=== PATIENT | female | born 1960 | race Caucasian/White ===

== ENCOUNTER → 2017-05-03 | Day surgery (SDC) | payer BC ==
[2017-04-26 13:00] VITALS: BMI 45.0
[2017-04-26 14:24] LABS: BASO % 0.2 %; BASO ABS # 0.02 K/uL (0-0.2); COMPLETE YES; EOS % 1.3 %; HEMATOCRIT 41.5 % (37-47); IG% 0.1 %; LYMPH ABS # 1.83 K/uL (1.2-3.4); MEAN CELL VOLUME 89.1 fL (80-100); MEAN CORPUSCULAR HEMOGLOBIN 27.7 pg (25-34); MEAN CORPUSCULAR HGB CONC 31.1 g/dl (32-36); MEAN PLATELET VOLUME 9.3 fL (7.4-10.4); MONO % 6.5 %; NEUT % 70.9 %; PLATELET COUNT 324 K/uL (130-400); RED BLOOD COUNT 4.66 M/uL (4.2-5.4); WHITE BLOOD COUNT 8.72 K/uL (4.8-10.8)
[2017-04-26 14:35] LABS: BUN/CREATININE RATIO 15.4 (10-20); CALCIUM 9.3 mg/dl (8.5-10.1); CREATININE 0.78 mg/dl (0.60-1.20); POTASSIUM 3.6 mmol/L (3.5-5.1)
[~2017-05-03] VITALS: Ht 149.9 cm; Wt 100.6 kg
[~2017-05-03] MED LIST: ATROPINE SULFATE 0.1 MG/ML 5ML SYR IV PRN; DEXAMETHASONE SOD INJ 4 MG/ML VIAL ONE; EpHEDrine SULFATE INJ 50 MG/ML AMP IV PRN; FENTANYL CITRATE INJ 50 MCG/1 ML 2 ML VIAL IV PRN; FENTANYL CITRATE INJ 50 MCG/1 ML 2 ML VIAL ONE; GLYCOPYRROLATE INJ 0.2 MG/ML VIAL ONE; IBUP600T44 PO; IBUPROFEN 600 MG TAB PO PRN; KETOROLAC TROMETHAMINE 30 MG/ML VIAL IV. PRN; LACTATED RINGER'S 1000ML 1,000 ML IV SCH; LIDOCAINE HCL 2% 2 ML VIAL (20MG/ML) ONE; MIDAZOLAM HCL 1 MG/ML 2ML VIAL ONE; NEOSTIGMINE METHYLSULFATE 5 MG/5 ML SYR ONE; ONDANSETRON INJ 2 MG/ML 2 ML VIAL IV PRN; ONDANSETRON INJ 2 MG/ML 2 ML VIAL ONE; OXYCODONE/ACETAMINOPHEN 5-325 TAB PO PRN; PROPOFOL IV EMULSION 10 MG/ML 20 ML VIAL IV ONE; ROCURONIUM BROMIDE 10 MG/ML 5 ML VIAL ONE; SODIUM CHLORIDE 0.9% 1000ML 1,000 ML IV SCH
[2017-05-03 05:42] VITALS: BP 141/74; PULSE 88; TEMP 36.9; O2SAT 95; Ht 149.9 cm; Wt 100.6 kg
[2017-05-03 06:28] LABS: BASO % 0.3 %; BASO ABS # 0.02 K/uL (0-0.2); HEMATOCRIT 41.2 % (37-47); IG% 0.3 %; LYMPH % 20.2 %; LYMPH ABS # 1.55 K/uL (1.2-3.4); MEAN PLATELET VOLUME 9.1 fL (7.4-10.4); MONO % 8.4 %; NEUT % 67.8 %; PLATELET COUNT 279 K/uL (130-400); RED BLOOD COUNT 4.68 M/uL (4.2-5.4); WHITE BLOOD COUNT 7.66 K/uL (4.8-10.8)
[2017-05-03 06:30] LABS: COMPLETE YES; MEAN CORPUSCULAR HGB CONC 31.8 g/dl (32-36)
--- NOTE | 2017-05-03 06:39 | History & Physical Bridge Note ---
H&P Re-Evaluation Bridge Note: I have examined the patient, reviewed the History & Physical and in the interval since the performance of the History & Physical I have noted the following changes of clinical significance: No changes noted
--- NOTE | 2017-05-03 07:51 | Discharge Instructions ---
Discharge Instructions Date of Service May 03, 2017. Visit Reason for Visit: Post-Menopausal Bleeding Discharge Discharge Diagnosis / Problem: Postmenopausal bleeding, Endometrial Polyp, S/P D&C Discharge Goals Goal(s): Decrease discomfort Activity Recommendations Activity Limitations: per Instructions/Follow-up section Anesthesia . Post Anesthesia Instructions: If you have had General Anesthesia or IV Sedation: * Do not drive today. * Resume driving when surgeon permits. * Do not make important decisions or sign legal documents today. * Call surgeon for: 1. Temperature elevations greater than 101 degrees F. 2. Uncontrollable pain. 3. Excessive bleeding. 4. Persistent nausea and vomiting. 5. Medication intolerance (nausea, vomiting or rash). * For nausea and vomiting use only clear liquids such as: tea, soda, bouillon until nausea subsides, then gradually increase diet as tolerated. * If you have any concerns or questions, call your surgeon's office. If physician is unavailable and it is an emergency, call 911 or go to the nearest emergency room. . Instructions / Follow-Up Instructions / Follow-Up ACTIVITY RECOMMENDATIONS: * Avoid tampons, douching, hot tubs, pools, and intercourse until bleeding has stopped. * May shower as usual. * No strenuous activity for 24-48 hours. After 24-48 hours, you may do anything you feel like doing (driving and sports are okay). SPECIAL CARE INSTRUCTIONS: Special Diet: * Mild nausea may occur in the immediate post-operative period. * Take clear liquids such as tea, cola or bouillon until all nausea has subsided; you may then resume your normal diet. Special Care: * Light bleeding and vaginal spotting can last from a few days to 3-4 weeks. Call your doctor if bleeding becomes heavier than the heaviest part of your period. * Check your temperature twice a day for one week. If it goes above 100.4 degrees Fahrenheit (38.0 Celsius), notify your doctor. * Call your doctor's office for an appointment for 1-2 weeks after your surgery. FOLLOW-UP VISIT: Call your doctor's office for an appointment for 1-2 weeks after your surgery. Diet Recommendations Recommended Home Diet: no limitations, resume previous diet Procedures Procedures Performed: Hysteroscopy Dilation Currettage, Myosure polypectomy Pending Studies Studies pending at discharge: no Medical Emergencies . Who to Call and When: Medical Emergencies: If at any time you feel your situation is an emergency, please call 911 immediately. . Non-Emergent Contact Non-Emergency issues call your: Primary Care Provider, [facility] . . "Provider Documentation" section prepared by Masoud Lilly. .
--- NOTE | 2017-05-03 07:56 | [facility] Post Operative Brief Note ---
Immediate Operative Summary Operative Date May 03, 2017. Pre-Operative Diagnosis Post Menopausal Bleeding Post-Operative Diagnosis Same as preop, Endometrial Polyp Procedure(s) Performed Hysteroscopy, Dilation and Currettage, Myosure polypectomy Surgeon Dr. Lilly Gravel Weigher Surgeon(s) None Estimated Blood Loss 5 ml Findings On bimanual exam uterus was at midline and freely mobile, bilateral adnexa clear to palpation. On speculum exam there was a large endometrial polyp extending from within the endometrial cavity extending out of the cervical os. The polyp was grasped with a ring forceps and removed in one large 4 cm piece. The hysteroscope was introduced into the endometrial cavity. Bilateral tubal ostia were clearly visualized the polyp stump was located at the right cornua. Utilizing the myosure the polyp stump was successfully removed. No other polyps or submucosal fibroids noted. The entire endometrial cavity was then curetted obtaining a minimal amount of endometrial tissue. Both the polyp and endometrial curettings were sent to pathology. Patient tolerated the surgery well and was sent to recovery with stable vital signs. Fluids (cc crystalloids) 800 Specimens A. Endometrial Currettings B. Endometrial Polyp Drains None Anesthesia General Complication(s) None Disposition Recovery Room / PACU
--- NOTE | 2017-05-03 08:24 | Anesthesiology Progress Note ---
Anesthesia Post Op Note Date & Time May 03, 2017 at 08:24 Vital Signs Pain Intensity: 2 Vital Signs Past 12 Hours Date Time Temp Pulse Resp B/P (MAP) Pulse Ox O2 Delivery O2 Flow Rate FiO2 05/03/17 08:09 87 15 05/03/17 08:09 85 15 100 05/03/17 08:06 150/95 05/03/17 08:04 88 17 100 05/03/17 08:04 89 17 05/03/17 08:01 131/109 05/03/17 07:59 89 17 05/03/17 07:59 90 17 100 05/03/17 07:56 117/99 05/03/17 07:54 91 20 05/03/17 07:54 92 20 99 05/03/17 07:54 36.6 94 14 117/99 (104) 100 Mask 10 05/03/17 05:42 36.9 88 16 141/74 (96) 95 Room Air Notes Mental Status: alert / awake / arousable, participated in evaluation Pt Amnestic to Procedure: Yes Nausea / Vomiting: adequately controlled Pain: adequately controlled Airway Patency, RR, SpO2: stable & adequate BP & HR: stable & adequate Hydration State: stable & adequate Anesthetic Complications: no major complications apparent
[2017-05-03 08:40] VITALS: BP 142/93; PULSE 93; TEMP 37; O2SAT 97
[2017-05-03 09:10] VITALS: BP 177/84; PULSE 96; O2SAT 97
--- NOTE | 2017-05-03 09:13 | OPERATIVE REPORT ---
DATE OF OPERATION: 05/03/2017 PREOPERATIVE DIAGNOSIS: Postmenopausal bleeding. POSTOPERATIVE DIAGNOSES: 1. Postmenopausal bleeding. 2. Endometrial polyp. OPERATIVE PROCEDURE: Hysteroscopy, dilation and curettage and MyoSure polypectomy. SURGEON: Dr. Masoud Lilly. PROCUREMENT CLERK: None. ANESTHESIA: General. ESTIMATED BLOOD LOSS: 5 mL. IV FLUIDS: 800 mL crystalloids. URINE OUTPUT: 150 mL clear yellow urine. SPECIMENS: Endometrial polyp and curettings to pathology. DRAINS: None. COMPLICATIONS: None. DISPOSITION: Recovery room. OPERATIVE FINDINGS: On bimanual exam, uterus was at midline and freely mobile. Bilateral adnexa were clear to palpation. On speculum exam, there was a large endometrial polyp extending from within the endometrial cavity, extending out of the cervical os. The polyp was grasped with a ring forceps and removed in 1 large 4-cm piece. The hysteroscope was then introduced into the endometrial cavity. Bilateral tubal ostia were clearly visualized. The polyp stump was located at the right cornua at the fundus. Utilizing my LigaSure, the polyp stump was successfully removed. No other endometrial polyps or submucosal fibroids noted. The entire endometrial cavity was then curetted obtaining a minimal amount of endometrial tissue. Both polyp endometrial curettings were sent to pathology. The patient tolerated the surgery well and was re sent to recovery with stable vital signs. OPERATIVE PROCEDURE: The patient was taken to the operating room, where general anesthesia was administered. Once anesthesia was found to be adequate, the patient was placed in dorsal lithotomy position and was prepped and draped in a manner appropriate for the procedure. The bladder was then drained of clear yellow urine. Bimanual exam was then performed with the above noted findings. A weighted speculum was then placed into the vagina and the anterior lip of the cervix was grasped with a single tooth tenaculum. It was noted that there was a polyp extruding from the cervical os, which was grasped with the ring forceps and removed in 1 large 4-cm piece. The hysteroscope was then introduced into the endometrial cavity and a thorough examination was then performed with the above noted findings. The MyoSure was then introduced into the endometrial cavity as well and the polyp stump was removed with MyoSure. No other endometrial polyp or submucosal fibroids were noted. The hysteroscope was then removed. The uterine cavity measured 7 cm. Utilizing a medium Mccarthy curette, a thorough curettage of the endometrial cavity was then performed, obtaining a minimal amount of endometrial tissue, which was sent to pathology. At this point, the procedure was found to be complete. All instruments were then removed from the vagina. All sponge and instrument counts were found to be correct x2. The patient tolerated the procedure well and was sent to recovery with stable vital signs. I attest to the content of the Intraoperative Record and any orders documented therein. Any exception s are noted below.
== END | disposition home or self-care (01) ==
LOC: C.ACU 05:19
PROVIDERS: ATTEND Obstetrics & Gynecology
DX: N84.0 Polyp of corpus uteri (principal)

== ENCOUNTER → 2017-09-12 | Outpatient (CLI) | payer BC ==
[~2017-09-12] MED LIST changes: -ATROPINE SULFATE 0.1 MG/ML 5ML SYR IV PRN; -DEXAMETHASONE SOD INJ 4 MG/ML VIAL ONE; -EpHEDrine SULFATE INJ 50 MG/ML AMP IV PRN; -FENTANYL CITRATE INJ 50 MCG/1 ML 2 ML VIAL IV PRN; -FENTANYL CITRATE INJ 50 MCG/1 ML 2 ML VIAL ONE; -GLYCOPYRROLATE INJ 0.2 MG/ML VIAL ONE; -IBUPROFEN 600 MG TAB PO PRN; -KETOROLAC TROMETHAMINE 30 MG/ML VIAL IV. PRN; -LACTATED RINGER'S 1000ML 1,000 ML IV SCH; -LIDOCAINE HCL 2% 2 ML VIAL (20MG/ML) ONE; -MIDAZOLAM HCL 1 MG/ML 2ML VIAL ONE; +NAPR250T3 PO; -NEOSTIGMINE METHYLSULFATE 5 MG/5 ML SYR ONE; -ONDANSETRON INJ 2 MG/ML 2 ML VIAL IV PRN; -ONDANSETRON INJ 2 MG/ML 2 ML VIAL ONE; -OXYCODONE/ACETAMINOPHEN 5-325 TAB PO PRN; -PROPOFOL IV EMULSION 10 MG/ML 20 ML VIAL IV ONE; +PRT40 PO; -ROCURONIUM BROMIDE 10 MG/ML 5 ML VIAL ONE; -SODIUM CHLORIDE 0.9% 1000ML 1,000 ML IV SCH
[2017-09-12 16:59] LABS: BASO % 0.3 %; BASO ABS # 0.03 K/uL (0-0.2); EOS % 0.9 %; HEMATOCRIT 22.9 % (37-47); IG% 0.2 %; LYMPH % 16.7 %; LYMPH ABS # 1.68 K/uL (1.2-3.4); MEAN CELL VOLUME 89.5 fL (80-100); MEAN CORPUSCULAR HEMOGLOBIN 28.1 pg (25-34); MEAN CORPUSCULAR HGB CONC 31.4 g/dl (32-36); MEAN PLATELET VOLUME 8.7 fL (7.4-10.4); NEUT % 76.9 %; PLATELET COUNT 407 K/uL (130-400); RED BLOOD COUNT 2.56 M/uL (4.2-5.4); WHITE BLOOD COUNT 10.09 K/uL (4.8-10.8)
[2017-09-12 17:24] LABS: COMPLETE YES; POLYCHROMASIA 1+
== END | disposition home or self-care (01) ==
LOC: C.LAB1850 16:22
PROVIDERS: ATTEND Physician Assistant
DX: R53.1 Weakness (principal)

== ENCOUNTER 2017-09-13 10:51 | Inpatient (IN) | payer BC, OTHER ==
[2017-09-13] VITALS (12 sets, daily range): BP systolic 107–146; BP diastolic 51–96; PULSE 69–111; TEMP 36.4–37.2; O2SAT 91–99; Ht 149.9 cm; Wt 99.1 kg
[~2017-09-13] VITALS: Ht 149.9 cm; Wt 99.1 kg
[~2017-09-13 10:51] MED LIST changes: -NAPR250T3 PO; -PRT40 PO
[2017-09-13] MEDS ORDERED: PANTOprazole INJ 40 MG in SYRINGE 0 ML IV ONE ×2 (11:30→13:30)
--- NOTE | 2017-09-13 11:51 | EMERGENCY ROOM VISIT NOTE ---
History Report prepared by Aby: Soumya Crenshaw Under the Supervision of: Dr. Aysha Wheeler D.O. 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 She notes blood in her stools (black in color) began five days ago and she has nausea, loss of appetite, general weakness, and fatigue. She notes that she has never had blood in her stools before. She also notes that her stools have been looser than normal, though denies diarrhea. She notes that she has recently had two courses of prednisone and antibiotic treatments for asthma exacerbation and a "cold." She normally has bronchospasms when she is sick, so her PCP prescribed her steroids. She notes that the cold symptoms have dissipated, though she still has a productive cough with white sputum. She reports feeling very sick while on the last antibiotic treatment, though she completed the treatment. She was recently seen by her PCP who ran blood tests and advised her to come to the ED because her hemoglobin 7.2. She notes they also performed a chest x-ray that was "clear." She denies taking any Pepto-Bismol or iron supplements. She denies a history of Crohn's disease, colonoscopy, or endoscopy. The patient is post- menopausal and has a history of cervical cysts. She recently had a D&C this summer. She denies any fevers, chills, chest pain, or abdominal pain. She also notes that she regularly drinks three glasses of wine every night. She notes that she had oatmeal about 2 hours INVESTMENT SALES ASSISTANT. Source of History: patient Onset: this morning INVESTMENT SALES ASSISTANT Position: other (global ) Quality: other (shortness of breath) Timing: other (persistent) Associated Symptoms: + nausea, + melena (black stool), + fatigue, + weakness (general), No fevers, No chills, No chest pain, No abdominal pain, No diarrhea Note: She notes loss of appetite. Review of Systems See HPI for pertinent positives & negatives. A total of 10 systems reviewed and were otherwise negative. Past Medical & Surgical Medical Problems: (1) Asthma (2) BPPV (benign paroxysmal positional vertigo) (3) Bronchitis (4) GI bleed (5) HTN (hypertension) Surgical Problems: (1) H/O dilation and curettage Family History Family history was reviewed; no changes noted. Social History Smoking Status: Never Smoker Smokeless Tobacco Use: No Alcohol Use: heavy (3 glasses of wine nightly) Drug Use: none Marital Status: Housing Status: lives with significant other Occupation Status: employed Current/Historical Medications Scheduled PRN Naproxen Tab (Naprosyn), 250 MG PO BID PRN for KNEE PAIN Allergies Coded Allergies: NO KNOWN DRUG ALLERGIES (Verified Allergy, Unknown, , 09/13/17) Uncoded Allergies: SEASONAL (Allergy, Unknown, watery eyes and nose, sneezing and itching, 04/26) Physical Exam Vital Signs Date Time Temp Pulse Resp B/P (MAP) Pulse Ox O2 Delivery O2 Flow Rate FiO2 09/13/17 13:11 108 110/78 96 Room Air 09/13/17 13:10 108/68 09/13/17 13:09 104 18 108/68 96 09/13/17 13:08 106 16 96 Room Air 09/13/17 13:03 105 18 116/76 97 09/13/17 13:03 105 20 116/76 96 Room Air 09/13/17 13:02 105 20 99/64 97 Room Air 09/13/17 13:00 109 20 95 Room Air 09/13/17 12:59 107/80 09/13/17 12:58 105 18 107/80 99 09/13/17 12:52 37.1 110 21 123/96 96 09/13/17 12:45 102 22 100 Room Air 09/13/17 12:31 123/96 09/13/17 12:30 106 19 96 Room Air 09/13/17 12:23 109 09/13/17 12:06 107 21 93 Room Air 09/13/17 12:01 109/85 09/13/17 11:51 103 17 94 Room Air 09/13/17 11:33 134/105 09/13/17 11:32 109 22 134/104 99 Room Air 09/13/17 10:53 37.0 124 22 121/71 99 Room Air Physical Exam GENERAL: alert, well appearing, well nourished, no distress, non-toxic EYE EXAM: normal conjunctiva, PERRL and EOM's grossly intact OROPHARYNX: no exudate, no erythema, lips, buccal mucosa, and tongue normal and mucous membranes are moist NECK: supple, no nuchal rigidity, no adenopathy, non-tender LUNGS: Clear to auscultation. Normal chest wall mechanics HEART: no murmurs, S1 normal and S2 normal ABDOMEN: abdomen soft, non-tender, normo-active bowel sounds, no masses, no rebound or guarding. BACK: Back is symmetrical on inspection and there is no deformity, no midline tenderness, no CVA tenderness. RECTAL: Hemorrhoids noted. No active bleeding, no thrombosis, and no anal fissure. Stools are black and heme positive upon testing. SKIN: no rashes and no bruising UPPER EXTREMITIES: upper extremities are grossly normal. LOWER EXTREMITIES: No pitting edema. NEURO EXAM: Normal sensorium, cranial nerves II-XII grossly intact, normal speech, no gross weakness of arms, no gross weakness of legs. Medical Decision & Procedures Laboratory Results 09/13/17 11:20 Red Blood Count 2.39, Mean Corpuscular Volume 88.3, Mean Corpuscular Hemoglobin 28.0, Mean Corpuscular Hemoglobin Concent 31.8, Mean Platelet Volume 8.5, Neutrophils (%) (Auto) 74.4, Lymphocytes (%) (Auto) 16.1, Monocytes (%) (Auto) 6.4, Eosinophils (%) (Auto) 2.5, Basophils (%) (Auto) 0.3, Neutrophils # (Auto) 5.61, Lymphocytes # (Auto) 1.21, Monocytes # (Auto) 0.48, Eosinophils # (Auto) 0.19, Basophils # (Auto) 0.02 09/13/17 11:20 Test 09/13/17 11:20 White Blood Count 7.53 K/uL (4.8-10.8) Red Blood Count 2.39 M/uL (4.2-5.4) Hemoglobin 6.7 g/dL (12.0-16.0) Hematocrit 21.1 % (37-47) Mean Corpuscular Volume 88.3 fL (80-100) Mean Corpuscular Hemoglobin 28.0 pg (25-34) Mean Corpuscular Hemoglobin Concent 31.8 g/dl (32-36) Platelet Count 400 K/uL (130-400) Mean Platelet Volume 8.5 fL (7.4-10.4) Neutrophils (%) (Auto) 74.4 % Lymphocytes (%) (Auto) 16.1 % Monocytes (%) (Auto) 6.4 % Eosinophils (%) (Auto) 2.5 % Basophils (%) (Auto) 0.3 % Neutrophils # (Auto) 5.61 K/uL (1.4-6.5) Lymphocytes # (Auto) 1.21 K/uL (1.2-3.4) Monocytes # (Auto) 0.48 K/uL (0.11-0.59) Eosinophils # (Auto) 0.19 K/uL (0-0.5) Basophils # (Auto) 0.02 K/uL (0-0.2) RDW Standard Deviation 45.5 fL (36.4-46.3) RDW Coefficient of Variation 14.0 % (11.5-14.5) Immature Granulocyte % (Auto) 0.3 % Immature Granulocyte # (Auto) 0.02 K/uL (0.00-0.02) Polychromasia 1+ Hypochromasia PRESENT Prothrombin Time 10.0 SECONDS (9.0-12.0) Prothromb Time International Ratio 1.0 (0.9-1.1) Anion Gap 4.0 mmol/L (3-11) Est Creatinine Clear Calc Drug Dose 94.9 ml/min Estimated GFR () 113.0 Estimated GFR (Non- 97.5 BUN/Creatinine Ratio 22.3 (10-20) Calcium Level 8.5 mg/dl (8.5-10.1) Total Bilirubin 0.2 mg/dl (0.2-1) Aspartate Amino Transf (AST/SGOT) 18 U/L (15-37) Alanine Aminotransferase (ALT/SGPT) 30 U/L (12-78) Alkaline Phosphatase 95 U/L (45-117) Troponin I < 0.015 ng/ml (0-0.045) Total Protein 6.5 gm/dl (6.4-8.2) Albumin 2.9 gm/dl (3.4-5.0) Globulin 3.6 gm/dl (2.5-4.0) Albumin/Globulin Ratio 0.8 (0.9-2) Lipase 156 U/L (73-393) Laboratory results per my review. Medications Administered Medications (Trade) Dose Ordered Sig/Jim Route Start Time Stop Time Status Last Admin Dose Admin Pantoprazole Sodium 40 mg/ Syringe 10 ml @ 5 mls/min NOW ONCE IV 09/13/17 11:30 09/13/17 11:31 DC 09/13/17 11:37 5 MLS/MIN Sodium Chloride 500 ml @ 999 mls/hr Q31M STAT IV 09/13/17 12:31 09/13/17 13:01 DC 09/13/17 13:02 999 MLS/HR ECG Indication: SOB/dyspnea Rate (beats per minute): 110 Rhythm: sinus tachycardia Findings: no acute ischemic change, other (Normal axis and normal intervals) ED Course 1102: The patient was evaluated in room C9. A complete history and physical exam was performed. 1110: I performed a rectal exam. Hemorrhoids don't appear actively irritated. Please see rectal exam note. 1130: Ordered Pantoprazole Sodium 40 mg/Syringe 10 ml @ 5 mls/min IV 1141: I reviewed the patient's EMR labs from yesterday and they show H&H: 7.2 and 22.9. 1220: I reassessed the patient at this time. She is feeling better and resting comfortably. 1229: I spoke with Dr. Billie Woodruff, hospitalist. We discussed the patient' s case. The patient will be evaluated by the [facility] for further management. 1231: Sodium Chloride 500 ml @ 999 mls/hr IV 1237: I spoke with Dr. Allen, retail property manager. We discussed the patients case. He will evaluate the patient. Medical Decision Prior records/ancillary studies reviewed. Triage Nursing notes reviewed. The patient's history was concerning for possible gastrointestinal bleeding. Differential diagnosis: Etiologies such as diverticulosis, AVM, coagulopathy, colitis, inflammatory bowel disease, malignancy, Jaclyn-Toscano tear, esophagitis, peptic ulcer disease , variceal bleed, gastritis, epistaxis, fissure, hemorrhoids, as well as others were entertained. Patient likely with underlying gastritis and possible peptic ulcer disease secondary to recent use of antibiotics and steroids. Patient also admits to daily consumption of wine. No recent increase in use of NSAIDs and no family history of peptic ulcer disease or inflammatory bowel disease that she is aware of. Patient tachycardic here initially however this improved without any IV fluids or transfusion. Likely secondary to anemia as well as anxiety regarding her and situation. Patient with no abdominal pain, no chest pain, no evidence of demand ischemia. Patient heme-positive on guaiac testing in the emergency room. Patient given dose of IV Protonix here and started transfusion of 2 units of packed red blood cells. Discussed case with internal medicine as well as GI to discuss consultation as well as urgency of endoscopy. They will evaluate and advise further. Patient hemodynamically stable and I feel able to be admitted to the floor. Medication Reconcilliation Current Medication List: was personally reviewed by me Blood Pressure Screening Patient's blood pressure: Normal blood pressure Consults Time Called: 1141 Consulting Physician: Dr. Billie Woodruff, hospitalist Returned Call: [address] Billie Woodruff, hospitalist. We discussed the patient's case. The patient will be evaluated by the [facility] for further management. Additional Consults: Time Called: 1234 Consulted Physician: Dr. Allen, retail property manager Returned Call: 1238 Additional Comments: I spoke with Dr. Allen, retail property manager. We discussed the patients case. He will evaluate the patient. Impression Primary Impression: GI bleed Additional Impressions: Anemia Generalized weakness Critical Care I have personally spent greater than 40 minutes of critical care time in the direct management of this patient. This includes bedside care, interpretation of diagnostic studies, and testing, discussion with consultants, patient, and family members, and other required patient management activities. This 40 minutes is in excess of all separately billable procedures. Scribe Attestation The scribe's documentation has been prepared under my direction and personally reviewed by me in its entirety. I confirm that the note above accurately reflects all work, treatment, procedures, and medical decision making performed by me. Departure Information Dispostion Being Evaluated By Hospitalist Referrals No Doctor, Assigned (PCP) Patient Instructions My [facility] Problem Qualifiers Primary Impression: GI bleed GI bleed type/associated pathology: unspecified gastrointestinal hemorrhage type Qualified Codes: K92.2 - Gastrointestinal hemorrhage, unspecified Additional Impressions: Anemia Anemia type: unspecified type Qualified Codes: D64.9 - Anemia, unspecified
[2017-09-13 11:52] LABS: HEMATOCRIT 21.1 % (37-47); MEAN CELL VOLUME 88.3 fL (80-100); MEAN CORPUSCULAR HGB CONC 31.8 g/dl (32-36); MEAN PLATELET VOLUME 8.5 fL (7.4-10.4); PLATELET COUNT 400 K/uL (130-400); RED BLOOD COUNT 2.39 M/uL (4.2-5.4); WHITE BLOOD COUNT 7.53 K/uL (4.8-10.8)
[2017-09-13 11:58] LABS: ALT/SGPT 30 U/L (12-78); AST/SGOT 18 U/L (15-37); BLOOD UREA NITROGEN 16 mg/dl (7-18); BUN/CREATININE RATIO 22.3 (10-20); CALCIUM 8.5 mg/dl (8.5-10.1); CARBON DIOXIDE 27 mmol/L (21-32); CHLORIDE 106 mmol/L (98-107); GLUCOSE 140 mg/dl (70-99); POTASSIUM 3.5 mmol/L (3.5-5.1); SODIUM 137 mmol/L (136-145)
[2017-09-13 11:59] LABS: BASO % 0.3 %; BASO ABS # 0.02 K/uL (0-0.2); COMPLETE YES; EOS % 2.5 %; HYPOCHROMIA PRESENT; IG% 0.3 %; LYMPH % 16.1 %; LYMPH ABS # 1.21 K/uL (1.2-3.4); MONO % 6.4 %; NEUT % 74.4 %; POLYCHROMASIA 1+
[2017-09-13] MEDS ORDERED: NAPR250T3 PO ×2 (12:01)
[2017-09-13 12:03] LABS: ALB/GLOB RATIO 0.8 (0.9-2); ALKALINE PHOSPHATASE 95 U/L (45-117)
[2017-09-13] MEDS ORDERED: SODIUM CHLORIDE 0.9% 500ML 500 ML IV STA (12:31)
[2017-09-13] MEDS ORDERED: OCTREOTIDE IV BOLUS & DRIP IV STA (13:06)
[2017-09-13] MEDS ORDERED: ACETAMINOPHEN 325 MG TAB PO PRN (13:15)
--- NOTE | 2017-09-13 13:28 | History and Physical ---
History & Physical Date & Time of Service: Sep 13, 2017 at 13:15 Chief Complaint: Shortness Of Breath/Weakness Primary Care Physician: No Doctor, Assigned History of Present Illness Source: patient, partner 56 years old female with no significant past medical history was in her regular state of health until about 4 months ago. She had and I&D procedure and was told that she has a uterine cyst. A week after that she developed upper respiratory tract infection that lasted for few months. During that time she had 3 courses of prednisone. And 2 courses of antibiotics. First course was doxycycline, second course was Augmentin which she finished one week ago. Immediately after she started the last course of antibiotic and prednisone which is about 2 weeks ago she started having very dark stools. Also her stools were mushy but not watery. She went to the bathroom 2-3 times a day which as per patient that's her average usual rate. Gradually started to feel very fatigued and tired. She went to a dredge master office yesterday complaining of shortness of breath and fatigue. He ordered some blood work that showed hemoglobin of 7.2. They called her today and ostial to come to the ED for further evaluation. In ED her hemoglobin was 6.5. Her baseline that we have in our records from April 2017 when she did her I&D her hemoglobin was 13. She denies any abdominal pain or vomiting She admits to taking one Aleve PM every night She also drank up to 3 cups of wine every night, stop drinking about a week ago Does not smoke Significant family history for cancer, 2 brothers from leukemia Also has heart disease in the family Social History Smoking Status: Never Smoker Multi-Drug Resistant Organisms History of MDRO: No Allergies Coded Allergies: NO KNOWN DRUG ALLERGIES (Verified Allergy, Unknown, , 09/13/17) Uncoded Allergies: SEASONAL (Allergy, Unknown, watery eyes and nose, sneezing and itching, 04/26) Home Medications Scheduled PRN Naproxen Tab (Naprosyn), 250 MG PO BID PRN for KNEE PAIN Review of Systems Constitutional: No fever, No chills, No sweats, No weight loss, No weakness, No fatigue, No problem reported Eyes: No worsening of vision, No eye pain, No redness, No discharge, No diplopia, No problem reported ENT: No hearing loss, No unusual epistaxis, No nasal symptoms, No sore throat, No tinnitus, No dental problems, No trouble swallowing, No problem reported Respiratory: + cough, + shortness of breath, No sputum, No wheezing, No dyspnea on exertion, No dyspnea at rest, No hemoptysis, No problem reported Cardiovascular: No chest pain, No orthopnea, No PND, No edema, No claudication , No palpitations, No problem reported Abdomen: No pain, No nausea, No vomiting, No diarrhea, No constipation, No GI bleeding, No problem reported Musculoskeletal: No joint pain, No muscle pain, No swelling, No calf pain, No problem reported Genitourinary - Female: No dysuria, No urinary frequency, No urinary urgency, No urinary incontinence, No urinary retention, No hematuria, No dysmenorrhea, No menorrhagia, No metrorrhagia, No rash, No vaginal bleeding, No vaginal discharge, No vaginal itching, No vulvodynia, No , No problem reported Neurologic: No memory loss, No paralysis, No weakness, No numbness/tingling, No vertigo, No balance problems, No problem reported Psychiatric: No depression symptoms, No anhedonism, No anxiety, No insomnia, No substance abuse, No problem reported Endocrine: No fatigue, No excessive thirst, No excessive urination, No problem reported Hematologic / Lymphatic: No abnormal bleeding/bruising, No clotting problems, No swollen lymph nodes, No night sweats, No problem reported Integumentary: No rash, No itch, No new/changing skin lesions, No color change , No bleeding, No problem reported Allergic / Immunologic: No environmental allergies, No seasonal allergies, No pet sensitivities, No food allergies, No hives, No frequent infections, No poor healing, No prolonged convalescence, No problem reported Physical Exam Vital Signs Date Time Temp Pulse Resp B/P (MAP) Pulse Ox O2 Delivery O2 Flow Rate FiO2 09/13/17 13:11 108 110/78 96 Room Air 09/13/17 13:10 108/68 09/13/17 13:09 104 18 108/68 96 09/13/17 13:08 106 16 96 Room Air 09/13/17 13:03 105 18 116/76 97 09/13/17 13:03 105 20 116/76 96 Room Air 09/13/17 13:02 105 20 99/64 97 Room Air 09/13/17 13:00 109 20 95 Room Air 09/13/17 12:59 107/80 09/13/17 12:58 105 18 107/80 99 09/13/17 12:52 37.1 110 21 123/96 96 09/13/17 12:45 102 22 100 Room Air 09/13/17 12:31 123/96 09/13/17 12:30 106 19 96 Room Air 09/13/17 12:23 109 09/13/17 12:06 107 21 93 Room Air 09/13/17 12:01 109/85 09/13/17 11:51 103 17 94 Room Air 09/13/17 11:33 134/105 09/13/17 11:32 109 22 134/104 99 Room Air 09/13/17 10:53 37.0 124 22 121/71 99 Room Air General Appearance: WD/WN, no apparent distress Head: normocephalic, atraumatic Eyes: normal inspection, EOMI ENT: normal ENT inspection, hearing grossly normal Neck: supple Respiratory/Chest: chest non-tender, lungs clear, normal breath sounds, no respiratory distress, no accessory muscle use Cardiovascular: regular rate, rhythm, no edema, no gallop, no JVD, no murmur, normal peripheral pulses Abdomen/GI: normal bowel sounds, non tender, soft, no organomegaly, no pulsatile mass Back: normal inspection, no CVA tenderness Extremities/Musculoskelatal: normal inspection, no calf tenderness, normal capillary refill, no pedal edema, normal range of motion 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, no motor/sensory deficits, alert, normal mood/affect, normal reflexes, oriented x 3 Skin: normal color, warm/dry, no rash Diagnostics Laboratory Results Results Past 24 Hours Test 09/13/17 11:20 Range/Units White Blood Count 7.53 4.8-10.8 K/uL Red Blood Count 2.39 4.2-5.4 M/uL Hemoglobin 6.7 12.0-16.0 g/dL Hematocrit 21.1 37-47 % Mean Corpuscular Volume 88.3 80-100 fL Mean Corpuscular Hemoglobin 28.0 25-34 pg Mean Corpuscular Hemoglobin Concent 31.8 32-36 g/dl Platelet Count 400 130-400 K/uL Mean Platelet Volume 8.5 7.4-10.4 fL Neutrophils (%) (Auto) 74.4 % Lymphocytes (%) (Auto) 16.1 % Monocytes (%) (Auto) 6.4 % Eosinophils (%) (Auto) 2.5 % Basophils (%) (Auto) 0.3 % Neutrophils # (Auto) 5.61 1.4-6.5 K/uL Lymphocytes # (Auto) 1.21 1.2-3.4 K/uL Monocytes # (Auto) 0.48 0.11-0.59 K/uL Eosinophils # (Auto) 0.19 0-0.5 K/uL Basophils # (Auto) 0.02 0-0.2 K/uL RDW Standard Deviation 45.5 36.4-46.3 fL RDW Coefficient of Variation 14.0 11.5-14.5 % Immature Granulocyte % (Auto) 0.3 % Immature Granulocyte # (Auto) 0.02 0.00-0.02 K/uL Polychromasia 1+ Hypochromasia PRESENT Prothrombin Time 10.0 9.0-12.0 SECONDS Prothromb Time International Ratio 1.0 0.9-1.1 Sodium Level 137 136-145 mmol/L Potassium Level 3.5 3.5-5.1 mmol/L Chloride Level 106 98-107 mmol/L Carbon Dioxide Level 27 21-32 mmol/L Anion Gap 4.0 3-11 mmol/L Blood Urea Nitrogen 16 7-18 mg/dl Creatinine 0.70 0.60-1.20 mg/dl Est Creatinine Clear Calc Drug Dose 94.9 ml/min Estimated GFR () 113.0 Estimated GFR (Non- 97.5 BUN/Creatinine Ratio 22.3 10-20 Random Glucose 140 70-99 mg/dl Calcium Level 8.5 8.5-10.1 mg/dl Total Bilirubin 0.2 0.2-1 mg/dl Aspartate Amino Transf (AST/SGOT) 18 15-37 U/L Alanine Aminotransferase (ALT/SGPT) 30 12-78 U/L Alkaline Phosphatase 95 45-117 U/L Troponin I < 0.015 0-0.045 ng/ml Total Protein 6.5 6.4-8.2 gm/dl Albumin 2.9 3.4-5.0 gm/dl Globulin 3.6 2.5-4.0 gm/dl Albumin/Globulin Ratio 0.8 0.9-2 Lipase 156 73-393 U/L Impression Assessment and Plan 56 years old female presented to the ED with acute blood loss anemia Assessment Acute blood loss anemia likely secondary to below Management/upper GI bleed likely secondary to prednisone/Aleve Elevated blood sugar of 140 on admission despite of eating only one pole of oatmeal today History of excessive wine intake, currently quit Excessive family history of multiple cancers Obesity of BMI of 44.8 Plan Admit to telemetry Agent consult to GI / we'll keep patient nothing by mouth Initiate Protonix drip Due to her excessive history of wine intake, will start her empirically on Sandostatin, although I suspect that she has any esophageal varices INR was checked and was normal Normal liver function Follow-up H and H every 12 hours Gentle IV fluid hydration 2 units of blood ordered so far ZUHAIR boots for DVT prophylaxis Due to her elevated blood sugar on presentation will check her hemoglobin A1c Resuscitation Status FULL RESUSCITATION VTE Prophylaxis VTE Risk Assessment Done? Y/N: Yes Risk Level: Moderate Given or contraindicated: T.E.D. Stockings, SCD's, Contraindicated Note Total Time: Critical Care 30 - 74 minutes
[2017-09-13] MEDS ORDERED: OCTREOTIDE ACETATE INJ 500 MCG in NSS 100ML IV SCH (13:30)
[2017-09-13] MEDS ORDERED: OCTREOTIDE BOLUS FROM BAG IV ONE (13:30)
[2017-09-13] MEDS ORDERED: PANTOprazole INJ 40 MG in DEXTROSE 5% 100ML IV SCH (13:30)
[2017-09-13] MEDS: SODIUM CHLORIDE 0.9% 1000ML 1,000 ML IV SCH (15:15)
[2017-09-13] MEDS ORDERED: ALBUT/IPRATROP 3MG/0.5MG NEB 3 ML VIAL INH PRN (15:30)
[2017-09-13] MEDS ORDERED: PROPOFOL IV EMULSION 10 MG/ML 20 ML VIAL IV ONE ×2 (17:29→17:59)
[2017-09-13] MEDS ORDERED: SUCCINYLCHOLINE CHLORIDE 20 MG/ML 10 ML VIAL IV ONE (17:29)
[2017-09-13] MEDS ORDERED: LIDOCAINE HCL 2% 2 ML VIAL (20MG/ML) ONE (17:29)
[2017-09-13] MEDS ORDERED: FENTANYL CITRATE INJ 50 MCG/1 ML 2 ML VIAL ONE ×2 (17:30→18:40)
[2017-09-13] MEDS ORDERED: MIDAZOLAM HCL 1 MG/ML 2ML VIAL ONE (17:30)
[2017-09-13] MEDS ORDERED: ROCURONIUM BROMIDE 10 MG/ML 5 ML VIAL IV ONE (17:51)
--- NOTE | 2017-09-13 18:29 | GASTROINTESTINAL CONSULTATION ---
DATE OF CONSULTATION: 09/13/2017 CHIEF COMPLAINT: Melena, fatigue, anemia. HISTORY OF PRESENT ILLNESS: Mrs. Kruse is a 56-year-old white female with no significant past medical history other than joint aches for which she occasionally uses an anti-inflammatory agent. The patient had recently experienced a respiratory illness that required 3 rounds of steroids (prednisone) along with 2 courses of antibiotics; the second of which caused significant abdominal distress and therefore she discontinued it. Upon discontinuation, she felt better. Earlier this week she began to note that her stools had changed in color, along with an increasing progressive fatigue. As a result, she returned back to [facility] who had been managing the acute respiratory illness and an x-ray was performed which suggested some changes of fibrosis. She was concerned about this as her father from lung interstitial fibrosis and therefore had an appointment with pulmonary medicine yesterday. The x-ray was reviewed and there were no significant changes noted to suggest fibrosis. However, as part of the workup, a CBC was obtained for which her hemoglobin was approximately 7. The patient reports no allergies and takes only Aleve pm which she has done for many years, this does reportedly contain naproxen. However, she describes no chronic abdominal distress, weight loss, prior melena or bright red blood per rectum, hematemesis or coffee ground emesis. A follow up in the Emergency Room showed her hemoglobin of 6.5. Baseline records with a CBC of April 2017 when she had D&C, revealed a hemoglobin of 13. ALLERGIES AND MEDICATIONS: She reports no allergies, takes no other medications other than occasional naproxen for her joint aches. SOCIAL HISTORY: The patient denies tobacco use, although does use 3 glasses of wine daily, which she has done for many years. She stopped wine use once her upper GI symptoms and respiratory illnesses began. She has not been using alcoholic beverages. The patient is . FAMILY HISTORY: Significant for father with chronic pulmonary disease. Two brothers who from leukemia, and a family history of cancer, although the types are not known; however, specifically these are not colon cancer. The patient has not had her initial screening colonoscopy to date. Other than the D&C, patient does not report any prior surgeries and does not routinely go to a family physician or primary care as she feels well overall. She did report that she has had mammograms in the past, although not recently and these were unremarkable. She also has an annual checkup from a gynecologic standpoint and led to the D&C this summer. LABORATORY STUDIES: On admission showed a white count of 7.53, hemoglobin 6.7, hematocrit 21, MCV is 88 with a platelet count of 400,000. INR is 1.0. Sodium 137, potassium 3.5, bicarbonate 27, BUN and creatinine are 16 and 0.7. Liver test; ALT 30, AST 18, total bilirubin 0.2, alkaline phosphatase 95. Troponin less than 0.015. Albumin is low at 2.9, lipase 156, total protein normal at 6.5. There are no imaging studies performed during this ER admission and hospitalization. Vitals: Stable except for resting tachycardia. AAOx3 NC/AT sclera anicteric conjunctiva moist oral mucosa moist extremities and neck nl ROM no focal neurologic defects no cervical/supraclavicular adenopathy no thyroidmegaly Lungs overall CTA; heart nls1s2 Abd soft, obese, NT/ND + BS; no abd bruits or masses; no rebound /guarding - CCE rectal exam deferred. IMPRESSION AND PLAN: The patient with recent hemoglobin in the summer of 2016 that was 13. Since the initiation of respiratory medical therapy for a presumed flu or pneumonia that led to the production of white sputum, her hemoglobin had been normal, but she had received courses of prednisone as well as antibiotics. She denies any Pepto-Bismol. She does units daily Aleve at bedtime. She denies use of aspirin products. Differential diagnosis includes peptic ulcer disease, gastritis. Her liver tests platelet count would not suggest evidence of portal hypertension or chronic liver disease, although this may be in the differential. The acute anemia that developed did produce symptoms of shortness of breath with dyspnea and may have been contributing to her respiratory status. The steroids may also be contributing to GI mucosal irritation and perhaps a source of gastritis or peptic ulcer. The patient had eaten oatmeal around 8:30 this morning and therefore will need to wait for at least 8 hours before Anesthesia can provide sedation. We will plan to perform upper endoscopy today. The symptoms were painless dark stools without hematemesis or coffee-ground emesis. In addition, the BUN is normal in this setting, albeit the bleed seems to have been a slow bleed. Depending on the findings of EGD, a colonoscopy will be considered. If she is stable, this can be arranged for an outpatient if there is discharge over the weekend. Otherwise, we can do it next week unless urgently required. Would follow hemoglobin daily. Continue PPI therapy for which her current medications in the hospital include pantoprazole drip, DuoNeb, octreotide. If there are no features of portal hypertension, octreotide can be discontinued later tonight. Her RDW is in the normal range, which may suggest a subacute bleed. However, hypochromasia is present and ultimately iron deficiency may be uncovered. The patient has already received 1 unit of packed red blood cells with an additional one ordered. Her INR is normal at 1.0. Further recommendations to follow. Continue PPI ggt Thank you for allowing us to participate in this patient's care. YADY
--- NOTE | 2017-09-13 18:35 | GI REPORT ---
Procedure Date: 09/13/2017 5:03 PM Procedure: Upper GI endoscopy Indications: Melena Medicines: General Anesthesia Complications: No immediate complications. Estimated blood loss: Minimal. Estimated Blood Loss: Estimated blood loss was minimal. Estimated blood loss: none. Procedure: Pre-Anesthesia Assessment: - Prior to the procedure, a History and Physical was performed, and patient medications and allergies were reviewed. The patient's tolerance of previous anesthesia was also reviewed. The risks and benefits of the procedure and the sedation options and risks were discussed with the patient. All questions were answered, and informed consent was obtained. Prior Anticoagulants: The patient has taken no previous anticoagulant or antiplatelet agents. ASA Grade Assessment: II - A patient with mild systemic disease. After reviewing the risks and benefits, the patient was deemed in satisfactory condition to undergo the procedure. After obtaining informed consent, the endoscope was passed under direct vision. Throughout the procedure, the patient's blood pressure, pulse, and oxygen saturations were monitored continuously. The Scope was introduced through the mouth, and advanced to the second part of duodenum. The upper GI endoscopy was accomplished without difficulty. The patient tolerated the procedure well. Findings: The examined esophagus was normal. A small hiatus hernia was found. The proximal extent of the gastric folds (end of tubular esophagus) was 35 cm from the incisors. The hiatal narrowing was 38 cm from the incisors. The Z-line was 35 cm from the incisors. The gastroesophageal junction, cardia, gastric fundus and gastric body were normal. Three non-bleeding cratered gastric ulcers with a visible vessel were found in the prepyloric region of the stomach. The largest lesion was 20 mm in largest dimension. Area was successfully injected with 13 mL of a 1:20,000 solution of epinephrine for hemostasis. Fulguration to ablate the lesion to prevent bleeding by bipolar probe was successful. Estimated blood loss: none. Localized mild inflammation was found in the gastric antrum. Biopsies were taken with a cold forceps for histology. The examined duodenum was normal. The cardia and gastric fundus were normal on retroflexion. A widely patent, non-obstructing and mild Schatzki ring (acquired) was found at the gastroesophageal junction. Impression: - Normal esophagus. - Small hiatus hernia. - Normal gastroesophageal junction, cardia, gastric fundus and gastric body. - Non-bleeding gastric ulcers with a visible vessel. Injected. Treated with bipolar cautery. - Gastritis. Biopsied. - Normal examined duodenum. Recommendation: - [facility] patient to [facility] for [facility] care. - Refer to a surgeon today. - Use a proton pump inhibitor IV ggt. - Clear liquid diet tomorrow. - Check hemoglobin daily. - Await pathology results. - Repeat the upper endoscopy in 12 weeks to check healing. - No aspirin, ibuprofen, naproxen, or other non-steroidal anti-inflammatory drugs. - Use Prilosec (omeprazole) 40 mg PO BID for 4 months. - Perform a colonoscopy in 12 weeks. MD Masoud Nunez MD 09/13/2017 6:35:01 PM This report has been signed electronically. Note Initiated On: 09/13/2017 5:03 PM I attest to the content of the Intraoperative Record and orders documented therein, exceptions below
--- NOTE | 2017-09-13 18:44 | GASTROENTEROLOGY PROGRESS NOTE ---
DATE: 09/13/2017 SUBJECTIVE: The patient underwent an upper endoscopy in the OR. There is a sizable deep gastric ulcer in the prepyloric region with 2 adjacent smaller ulcers. The large ulcer had evidence of a protuberance in the center that was slightly pulsatile. This underwent injection with 1:100,000 epinephrine 20 mL and bipolar cautery application. The duodenum is normal. Given the location, sizable vessel and deep nature of the ulcer, please consider a surgical consultation. If bleeding recurs, endoscopic intervention is unlikely to be helpful and may need either surgical approach or interventional radiology for coil embolization. Would continue IV PPI drip at least for 48 hours and then can convert to 40 mg twice daily for 4 months. Samples taken for H. pylori. The patient will also need EGD in 12 weeks to ensure that there is healing and no residual ulceration that warrants biopsy. The patient also has never had a colonoscopy and at age 56, I recommended this for screening purposes. This can also be arranged in a few months at the time of her followup EGD as an outpatient. We would advance to clear liquids tomorrow or perhaps very much later this evening. The patient should avoid all NSAIDs and aspirin products (Tylenol okay). It should be noted the patient uses Aleve PM every night for many months or years and this may be a culprit.
[2017-09-13] MEDS ORDERED: ONDANSETRON INJ 2 MG/ML 2 ML VIAL ONE (18:57)
[2017-09-13] MEDS ORDERED: ONDANSETRON INJ 2 MG/ML 2 ML VIAL IV PRN (19:00)
[2017-09-13] MEDS ORDERED: PROMETHAZINE HCL INJ 12.5 MG in SODIUM CHLORIDE 0.9% 50ML 50 ML IV PRN (19:00)
[2017-09-13] MEDS ORDERED: ATROPINE SULFATE 0.1 MG/ML 5ML SYR IV PRN (19:00)
[2017-09-13] MEDS ORDERED: FENTANYL CITRATE INJ 50 MCG/1 ML 2 ML VIAL IV PRN (19:00)
[2017-09-13] MEDS ORDERED: EpHEDrine SULFATE INJ 50 MG/ML AMP IV PRN (19:00)
[2017-09-13] MEDS ORDERED: HYDROmorphone INJ 1 MG/ML SYR IV PRN (19:00)
--- NOTE | 2017-09-13 19:17 | Anesthesiology Progress Note ---
Anesthesia Post Op Note Date & Time Sep 13, 2017 at 19:16 Vital Signs Pain Intensity: 4 Vital Signs Past 12 Hours Date Time Temp Pulse Resp B/P (MAP) Pulse Ox O2 Delivery O2 Flow Rate FiO2 09/13/17 19:08 109 18 09/13/17 19:08 109 18 92 09/13/17 19:06 149/82 09/13/17 19:03 109 15 98 09/13/17 19:03 109 15 09/13/17 19:01 122/82 09/13/17 18:58 107 20 99 09/13/17 18:58 108 20 09/13/17 18:57 137/73 09/13/17 18:53 102 20 09/13/17 18:53 104 20 99 09/13/17 18:52 100 19 09/13/17 18:52 102 19 100 09/13/17 18:51 137/76 09/13/17 18:47 104 14 09/13/17 18:47 105 14 100 09/13/17 18:46 126/61 09/13/17 18:42 105 22 131/94 100 09/13/17 18:42 104 22 09/13/17 18:37 108 20 128/58 100 09/13/17 18:37 110 20 09/13/17 18:32 114 19 133/63 100 09/13/17 18:32 114 19 09/13/17 18:29 139/92 09/13/17 18:27 119 24 89 09/13/17 18:27 36.8 118 18 139/92 97 Oxymask 10 09/13/17 18:27 119 24 09/13/17 16:00 95 Room Air 09/13/17 16:00 36.6 69 18 110/64 (79) 95 Room Air 09/13/17 14:46 36.5 103 20 120/68 95 09/13/17 14:25 36.8 95 15 138/80 95 Room Air 09/13/17 13:46 36.4 111 20 146/51 94 09/13/17 13:40 37.1 104 19 134/86 97 09/13/17 13:36 104 19 134/86 97 09/13/17 13:32 134/86 09/13/17 13:16 104 19 97 Room Air 09/13/17 13:15 108 18 110/78 96 09/13/17 13:11 108 110/78 96 Room Air 09/13/17 13:10 108/68 09/13/17 13:09 104 18 108/68 96 09/13/17 13:08 106 16 96 Room Air 09/13/17 13:03 105 18 116/76 97 09/13/17 13:03 105 20 116/76 96 Room Air 09/13/17 13:02 105 20 99/64 97 Room Air 09/13/17 13:00 109 20 95 Room Air 09/13/17 12:59 107/80 09/13/17 12:58 105 18 107/80 99 09/13/17 12:52 37.1 110 21 123/96 96 09/13/17 12:45 102 22 100 Room Air 09/13/17 12:31 123/96 09/13/17 12:30 106 19 96 Room Air 09/13/17 12:23 109 09/13/17 12:06 107 21 93 Room Air 09/13/17 12:01 109/85 09/13/17 11:51 103 17 94 Room Air 09/13/17 11:33 134/105 09/13/17 11:32 109 22 134/104 99 Room Air 09/13/17 10:53 37.0 124 22 121/71 99 Room Air Notes Mental Status: alert / awake / arousable, participated in evaluation Pt Amnestic to Procedure: Yes Nausea / Vomiting: adequately controlled Pain: adequately controlled Airway Patency, RR, SpO2: stable & adequate BP & HR: stable & adequate Hydration State: stable & adequate Anesthetic Complications: no major complications apparent
[2017-09-13] MEDS: PANTOprazole INJ 40 MG in DEXTROSE 5% 100ML IV SCH ×2 (20:34→23:30)
[2017-09-14] VITALS (7 sets, daily range): BP systolic 104–120; BP diastolic 68–81; PULSE 85–94; TEMP 36.8–37.1; O2SAT 90–93
[2017-09-14] MEDS: OCTREOTIDE ACETATE INJ 500 MCG in NSS 100ML IV SCH ×2 (00:04→10:59)
[2017-09-14] MEDS: SODIUM CHLORIDE 0.9% 1000ML 1,000 ML IV SCH ×2 (02:59→23:20)
[2017-09-14] MEDS: PANTOprazole INJ 40 MG in DEXTROSE 5% 100ML IV SCH ×4 (05:08→20:46)
[2017-09-14 07:38] LABS: BASO % 0.4 %; BASO ABS # 0.04 K/uL (0-0.2); IG% 0.4 %; LYMPH % 17.4 %; LYMPH ABS # 1.71 K/uL (1.2-3.4); MEAN CELL VOLUME 88.3 fL (80-100); MEAN CORPUSCULAR HEMOGLOBIN 29.3 pg (25-34); MEAN CORPUSCULAR HGB CONC 33.2 g/dl (32-36); MEAN PLATELET VOLUME 8.7 fL (7.4-10.4); MONO % 7.2 %; NEUT % 70.6 %; PLATELET COUNT 351 K/uL (130-400); RED BLOOD COUNT 2.83 M/uL (4.2-5.4); WHITE BLOOD COUNT 9.82 K/uL (4.8-10.8)
[2017-09-14 08:10] LABS: COMPLETE YES; HYPOCHROMIA PRESENT
[2017-09-14 08:16] LABS: ESTIMATED AVERAGE GLUCOSE 103 mg/dl; HA1C FLAG Normal (Normal)
[2017-09-14 08:24] LABS: BUN/CREATININE RATIO 12.6 (10-20); CALCIUM 8.1 mg/dl (8.5-10.1); CREATININE 0.61 mg/dl (0.60-1.20)
[2017-09-14 08:29] LABS: ALB/GLOB RATIO 0.9 (0.9-2)
--- NOTE | 2017-09-14 11:07 | GASTROENTEROLOGY PROGRESS NOTE ---
DATE: 09/14/2017 SUBJECTIVE: Chart reviewed, patient examined. The patient did well overnight since her procedure. Reports no further black stools or bowel movements. She has no abdominal pain, nausea, vomiting and tolerated the procedure well. She is hungry and has had some ice chips only. She continues on a PPI drip. Her laboratory studies this morning, her white count 9.8, hemoglobin 8.3, platelets are 351,000. Serum chemistry today, hemoglobin A1c 5.2, BUN and creatinine 8 and 0.6, potassium 4.0. HCV screening was negative. REVIEW OF SYSTEMS: Otherwise noncontributory based on 13-point exam except for mentioned above. OBJECTIVE: VITAL SIGNS: The patient is afebrile at 36.8, blood pressure 104/70, respirations 20, heart rate 94, 90% on room air. GENERAL: The patient is awake, alert and oriented x3 and accompanied by her . Sclerae are anicteric. Conjunctivae moist. HEENT: Oral mucosa moist. HEART: Normal S1, S2. LUNGS: Clear to auscultation without wheezes or rhonchi. ABDOMEN: Obese, soft, nontender, nondistended with positive bowel sounds. EXTREMITIES: Without edema. RECTAL: Deferred. IMPRESSION AND PLAN: The patient with sizable prepyloric gastric ulcers, one with protuberance that may suggest a visible vessel endoscopically treated yesterday. RECOMMENDATIONS: Are as follows: 1. We would continue PPI drip for 24 hours and can then place change roof bolter to p.o. omeprazole 40 mg twice daily or equivalent. 2. Await biopsies for H. pylori. 3. Strict avoidance of NSAIDs and aspirin or cough and cold products that contain these agents. Tylenol is acceptable. We would follow hemoglobin. Can consider iron therapy orally in perhaps 1-2 weeks once the patient has had some opportunity for this ulcer to heal. In addition, the patient will require a repeat EGD in 12 weeks and it will be arranged as an outpatient for ulcer healing. 4. Colonoscopy also at that time for an initial screening given her age. These will be in 3 months. The patient can ambulate as tolerated. We would advance diet to clears this morning, fulls at lunch, and if still tolerating this intake well, can begin to advance to a low-fat diet later this evening. We will follow hemoglobin daily.
[2017-09-14] MEDS ORDERED: NURSING VERBAL MED ORDER ONE (15:15)
--- NOTE | 2017-09-14 16:41 | Progress Note ---
Subjective Date of Service: Sep 14, 2017. Subjective Pt evaluation today including: conversation w/ patient, physical exam, chart review, lab review, review of studies, review of inpatient medication list Pain: no pain PO Intake: good Voiding: no voiding problems Patient is seen and examined by me. Pt denies cp, sob, dizziness but still feel very week. However denies any dark kumar stool. Good oral intake Problem List Medical Problems: (1) Anemia Status: Acute Review of Systems All Other Systems: Reviewed and Negative Medications Medications (Trade) Dose Ordered Sig/Jim Route Start Time Stop Time Status Last Admin Dose Admin Pantoprazole Sodium 40 mg/ Syringe 10 ml @ 5 mls/min NOW ONCE IV 09/13/17 11:30 09/13/17 11:31 DC 09/13/17 11:37 5 MLS/MIN Sodium Chloride 500 ml @ 999 mls/hr Q31M STAT IV 09/13/17 12:31 09/13/17 13:01 DC 09/13/17 13:02 999 MLS/HR Sodium Chloride 1,000 ml @ 50 mls/hr Q20H IV 09/13/17 14:06 10/13/17 13:05 09/14/17 02:59 50 MLS/HR Octreotide Acetate (Sandostatin Bolus From Bag) 100 mcg ONE ONCE IV 09/13/17 13:30 09/13/17 13:31 DC 09/13/17 13:30 100 MCG Octreotide Acetate 500 mcg/ Sodium Chloride 105 ml @ 10 mls/hr [id number] IV 09/13/17 13:30 09/13/17 23:59 DC 09/13/17 15:13 10 MLS/HR Pantoprazole Sodium 40 mg/ Syringe 10 ml @ 5 mls/min NOW ONCE IV 09/13/17 13:30 09/13/17 13:31 DC 09/13/17 15:12 5 MLS/MIN Pantoprazole Sodium 40 mg/ Dextrose 100 ml @ 20 mls/hr Q5H IV 09/13/17 13:30 09/13/17 18:29 DC 09/13/17 15:13 20 MLS/HR Pantoprazole Sodium 40 mg/ Dextrose 100 ml @ 20 mls/hr Q5H IV 09/13/17 18:30 10/13/17 18:29 12/23/17 09:38 20 MLS/HR Octreotide Acetate 500 mcg/ Sodium Chloride 105 ml @ 10 mls/hr [id number] IV 09/14/17 00:00 10/14/17 00:00 09/14/17 00:04 10 MLS/HR Fentanyl Citrate (Fentanyl Inj) 100 mcg STK-MED ONCE .ROUTE 09/13/17 18:40 09/13/17 18:41 DC 09/13/17 18:52 25 MCG Ondansetron HCl (Zofran Inj) 4 mg STK-MED ONCE .ROUTE 09/13/17 18:57 09/13/17 18:58 DC 09/13/17 19:00 4 MG Objective Vital Signs Date Time Temp Pulse Resp B/P (MAP) Pulse Ox O2 Delivery O2 Flow Rate FiO2 09/14/17 07:56 36.8 94 20 104/70 (81) 90 Room Air 09/14/17 07:30 Room Air 09/14/17 04:00 Room Air 09/14/17 03:35 36.9 91 20 108/68 (81) 92 Room Air 09/14/17 00:00 Nasal Cannula 2.0 09/13/17 23:38 37.0 104 20 121/78 (92) 91 Room Air 09/13/17 20:00 37.2 107 16 137/83 (101) 93 Room Air 09/13/17 20:00 Nasal Cannula 2.0 09/13/17 19:24 111 16 09/13/17 19:24 111 16 97 09/13/17 19:21 133/75 09/13/17 19:20 37.6 09/13/17 19:19 111 16 90 09/13/17 19:19 112 16 09/13/17 19:16 138/74 09/13/17 19:14 108 16 89 09/13/17 19:14 109 16 09/13/17 19:12 131/67 09/13/17 19:09 110 19 09/13/17 19:09 110 19 90 09/13/17 19:08 109 18 09/13/17 19:08 109 18 92 09/13/17 19:06 149/82 09/13/17 19:03 109 15 98 09/13/17 19:03 109 15 09/13/17 19:01 122/82 09/13/17 18:58 107 20 99 12/22/17 18:58 108 20 09/13/17 18:57 137/73 09/13/17 18:53 102 20 09/13/17 18:53 104 20 99 09/13/17 18:52 100 19 09/13/17 18:52 102 19 100 09/13/17 18:51 137/76 09/13/17 18:47 104 14 09/13/17 18:47 105 14 100 09/13/17 18:46 126/61 09/13/17 18:42 105 22 131/94 100 09/13/17 18:42 104 22 09/13/17 18:40 37.6 09/13/17 18:37 108 20 128/58 100 09/13/17 18:37 110 20 09/13/17 18:32 114 19 133/63 100 09/13/17 18:32 114 19 09/13/17 18:29 139/92 09/13/17 18:27 119 24 89 09/13/17 18:27 36.8 118 18 139/92 97 Oxymask 10 09/13/17 18:27 119 24 09/13/17 16:00 95 Room Air 09/13/17 16:00 36.6 69 18 110/64 (79) 95 Room Air 09/13/17 14:46 36.5 103 20 120/68 95 09/13/17 14:25 36.8 95 15 138/80 95 Room Air 09/13/17 13:46 36.4 111 20 146/51 94 09/13/17 13:40 37.1 104 19 134/86 97 09/13/17 13:36 104 19 134/86 97 09/13/17 13:32 134/86 09/13/17 13:16 104 19 97 Room Air 09/13/17 13:15 108 18 110/78 96 09/13/17 13:11 108 110/78 96 Room Air 09/13/17 13:10 108/68 09/13/17 13:09 104 18 108/68 96 09/13/17 13:08 106 16 96 Room Air 09/13/17 13:03 105 18 116/76 97 09/13/17 13:03 105 20 116/76 96 Room Air 09/13/17 13:02 105 20 99/64 97 Room Air 09/13/17 13:00 109 20 95 Room Air 09/13/17 12:59 107/80 09/13/17 12:58 105 18 107/80 99 09/13/17 12:52 37.1 110 21 123/96 96 09/13/17 12:45 102 22 100 Room Air 09/13/17 12:31 123/96 09/13/17 12:30 106 19 96 Room Air 09/13/17 12:23 109 09/13/17 12:06 107 21 93 Room Air 09/13/17 12:01 109/85 09/13/17 11:51 103 17 94 Room Air 09/13/17 11:33 134/105 09/13/17 11:32 109 22 134/104 99 Room Air 09/13/17 10:53 37.0 124 22 121/71 99 Room Air Physical Exam Comments: General Appearance: WD/WN, no apparent distress Head: normocephalic, atraumatic Eyes: normal inspection, EOMI ENT: normal ENT inspection, hearing grossly normal Neck: supple Respiratory/Chest: chest non-tender, lungs clear, normal breath sounds, no respiratory distress, no accessory muscle use Cardiovascular: regular rate, rhythm, no edema, no gallop, no JVD, no murmur, normal peripheral pulses Abdomen/GI: normal bowel sounds, non tender, soft, no organomegaly, no pulsatile mass Back: normal inspection, no CVA tenderness Extremities/Musculoskelatal: normal inspection, no calf tenderness, normal capillary refill, no pedal edema, normal range of motion Neurologic/Psych: harness and bag inspector II-XII nml as tested, no motor/sensory deficits, alert, normal mood/affect, normal reflexes, oriented x 3 Skin: normal color, warm/dry, no rash Laboratory Results Last 24 Hours Test 09/13/17 11:20 09/13/17 19:43 09/14/17 06:57 White Blood Count 7.53 K/uL 9.82 K/uL Red Blood Count 2.39 M/uL 2.83 M/uL Hemoglobin 6.7 g/dL 8.8 g/dL 8.3 g/dL Hematocrit 21.1 % 27.0 % 25.0 % Mean Corpuscular Volume 88.3 fL 88.3 fL Mean Corpuscular Hemoglobin 28.0 pg 29.3 pg Mean Corpuscular Hemoglobin Concent 31.8 g/dl 33.2 g/dl Platelet Count 400 K/uL 351 K/uL Mean Platelet Volume 8.5 fL 8.7 fL Neutrophils (%) (Auto) 74.4 % 70.6 % Lymphocytes (%) (Auto) 16.1 % 17.4 % Monocytes (%) (Auto) 6.4 % 7.2 % Eosinophils (%) (Auto) 2.5 % 4.0 % Basophils (%) (Auto) 0.3 % 0.4 % Neutrophils # (Auto) 5.61 K/uL 6.93 K/uL Lymphocytes # (Auto) 1.21 K/uL 1.71 K/uL Monocytes # (Auto) 0.48 K/uL 0.71 K/uL Eosinophils # (Auto) 0.19 K/uL 0.39 K/uL Basophils # (Auto) 0.02 K/uL 0.04 K/uL RDW Standard Deviation 45.5 fL 46.3 fL RDW Coefficient of Variation 14.0 % 14.3 % Immature Granulocyte % (Auto) 0.3 % 0.4 % Immature Granulocyte # (Auto) 0.02 K/uL 0.04 K/uL Polychromasia 1+ Hypochromasia PRESENT PRESENT Prothrombin Time 10.0 SECONDS Prothromb Time International Ratio 1.0 Sodium Level 137 mmol/L 142 mmol/L Potassium Level 3.5 mmol/L 4.0 mmol/L Chloride Level 106 mmol/L 109 mmol/L Carbon Dioxide Level 27 mmol/L 27 mmol/L Anion Gap 4.0 mmol/L 6.0 mmol/L Blood Urea Nitrogen 16 mg/dl 8 mg/dl Creatinine 0.70 mg/dl 0.61 mg/dl Est Creatinine Clear Calc Drug Dose 94.9 ml/min 108.0 ml/min Estimated GFR () 113.0 118.3 Estimated GFR (Non- 97.5 102.1 BUN/Creatinine Ratio 22.3 12.6 Random Glucose 140 mg/dl 120 mg/dl Calcium Level 8.5 mg/dl 8.1 mg/dl Total Bilirubin 0.2 mg/dl 0.5 mg/dl Aspartate Amino Transf (AST/SGOT) 18 U/L 25 U/L Alanine Aminotransferase (ALT/SGPT) 30 U/L 38 U/L Alkaline Phosphatase 95 U/L 90 U/L Troponin I < 0.015 ng/ml Total Protein 6.5 gm/dl 6.1 gm/dl Albumin 2.9 gm/dl 2.9 gm/dl Globulin 3.6 gm/dl 3.2 gm/dl Albumin/Globulin Ratio 0.8 0.9 Lipase 156 U/L Hepatitis C Antibody Screen NEG Estimated Average Glucose 103 mg/dl Hemoglobin A1c 5.2 % Assessment and Plan 56 years old female presented to the ED with acute blood loss anemia secondary to gastric ulcer secondary to possible NSAID,s rule out H-pylori infection Plan -- S/p EGD showed multiple gastric ulcers, plan for outpatient workup as per Gi consult, really appreciate GI input. -- Continue Protonix drip as per Gi for next 24 hour at least, will transition to oral PPI,s. -- Will d/c octreotide no sign of portal HTN. -- Follow-up H and H every 24hours, s/p 2 unit of PRBC 8.3 , we will transfuse if Hgb drop below 7.0 -- Gentle IV fluid hydration -- Gi recommendation appreciated. SCD boots for DVT prophylaxis Continued [facility] stay due to: multiple IV medications needed Discharge planning: home
[2017-09-14 19:29] LABS: HEMATOCRIT 24.8 % (37-47)
[2017-09-15] MEDS: PANTOprazole INJ 40 MG in DEXTROSE 5% 100ML IV SCH ×2 (00:52→05:51)
[2017-09-15 03:16] VITALS: BP 113/68; PULSE 82; TEMP 36.7; O2SAT 94
[2017-09-15 07:07] LABS: HEMATOCRIT 27.3 % (37-47)
[2017-09-15 07:51] VITALS: BP 96/56; PULSE 61; TEMP 36.5; O2SAT 97
[2017-09-15] MEDS ORDERED: PANTOprazole SOD 40 MG TAB PO SCH (09:00)
--- NOTE | 2017-09-15 09:57 | Gastroenterology Progress Note ---
Progress Note Date of Service: Sep 15, 2017 Subjective Pt evaluation today including: conversation w/ patient, physical exam, chart review, lab review, review of studies, review of inpatient medication list Cc f/u GI bleeding HPI Pt states and nursing notes report brown stool this am. No abd pain complaints. Review of Systems Respiratory: No shortness of breath Cardiac: No chest pain Medications Current Inpatient Medications Medications (Trade) Dose Ordered Sig/Jim Route Start Time Stop Time Status Last Admin Dose Admin Sodium Chloride 1,000 ml @ 50 mls/hr Q20H IV 09/13/17 14:06 10/13/17 13:05 09/14/17 23:20 50 MLS/HR Acetaminophen (Tylenol Tab) 650 mg Q4H PRN PO 09/13/17 13:15 10/13/17 13:14 Albuterol/ Ipratropium (Duoneb) 3 ml TID PRN INH 09/13/17 15:30 10/13/17 15:29 Pantoprazole Sodium (Protonix Tab) 40 mg BID PO 09/15/17 09:00 09/20/17 08:59 Objective Vital Signs Date Time Temp Pulse Resp B/P (MAP) Pulse Ox O2 Delivery O2 Flow Rate FiO2 09/15/17 08:00 Room Air 09/15/17 07:51 36.5 61 20 96/56 (69) 97 Room Air 09/15/17 04:00 Room Air 09/15/17 03:16 36.7 82 16 113/68 (83) 94 Room Air 09/14/17 23:59 Room Air 09/14/17 23:13 36.8 89 16 117/77 (90) 93 Room Air 09/14/17 20:00 Room Air 09/14/17 18:55 36.8 85 18 118/76 (90) 90 Room Air 09/14/17 16:00 Room Air 09/14/17 15:34 37.1 85 18 120/81 (94) 91 Room Air 09/14/17 12:02 37.0 92 20 113/77 (89) 91 Room Air 09/14/17 11:56 37.0 91 91 92 Room Air 09/14/17 11:30 Room Air Physical Exam General Appearance: WD/WN, no apparent distress Respiratory/Chest: lungs clear, no respiratory distress Cardiovascular: regular rate, rhythm Abdomen: normal bowel sounds, non tender, soft, no organomegaly Laboratory Results Last 24 Hours Test 09/14/17 19:10 09/15/17 06:44 Hemoglobin 8.1 g/dL 8.7 g/dL Hematocrit 24.8 % 27.3 % Assessment and Plan GI bleeding--no clinical evidence with brown stool anemia--stable gastric ulcer--path for h.pylori pending Ok for DC today from GI standpoint on PPI bid and Fe. Told patient to call Dr Fink office saturday to arrange f/u and plan for repeat EGD in 12 weeks and screening colo then. Told patient to avoid NSAIDs and ASA except tylenol and also avoid ETOH.
[2017-09-15] MEDS ORDERED: PRT40 PO ×2 (11:14)
--- NOTE | 2017-09-15 11:18 | Discharge Instructions ---
Discharge Instructions Date of Service Sep 15, 2017. Admission Reason for Admission: Gi Bleed Discharge Discharge Diagnosis / Problem: Gastirc Ulcers Discharge Goals Goal(s): Decrease discomfort, Improve function, Improve disease control, Improve nutritional status, Learn about illness, Diagnostic testing, Therapeutic intervention, Prevent Disease Progression Activity Recommendations Activity Limitations: resume your previous activity . Current Hospital Diet Patient's current hospital diet: Low Fat Diet Discharge Diet Recommended Diet: Regular Diet, AHA Diet (Heart Healthy) Procedures Procedures Performed: Esophagogastroduodenoscopy with biopsy and hemastasis Pending Studies Studies pending at discharge: no Laboratory Results Hemoglobin A1c Test 09/14/17 06:57 Range/Units Estimated Average Glucose 103 mg/dl Hemoglobin A1c 5.2 4.5-5.6 % Medical Emergencies . Who to Call and When: Medical Emergencies: If at any time you feel your situation is an emergency, please call 911 immediately. . Non-Emergent Contact Non-Emergency issues call your: Primary Care Provider Call Non-Emergent contact if: your pain is not controlled . . "Provider Documentation" section prepared by Nicol Moreno . VTE Core Measure Inpt VTE Proph given/why not?: T.E.D. Stockings, SCD's, Contraindicated
[2017-09-15 11:27] VITALS: BP 96/56; PULSE 61; TEMP 36.5; O2SAT 97
--- NOTE | 2017-09-15 11:36 | Discharge Summary ---
Discharge Summary Date of Service Sep 15, 2017. Discharge Summary Admission Date: Sep 13, 2017 at 13:14 Discharge Date: Sep 15, 2017 Discharge Disposition: Home Principal Diagnosis: Gi bleed ( gastric ulcer) Problems/Secondary Diagnoses: Gastritis Procedures: EGD Consultations: GI Medication Reconciliation New Medications: Pantoprazole (Pantoprazole Sodium) 40 Mg Tab 40 MG PO BID for 30 Days, #60 TAB Discontinued Medications: Naproxen Tab (Naprosyn) 250 Mg Tab 250 MG PO BID PRN for KNEE PAIN, TAB Referrals At Discharge Follow up Referrals: [employer]eping [employer] Operator Referral - Within 1-2 Weeks with Masoud Renteria M.D. Discharge Exam Review of Systems: Constitutional: No fever, No chills, No sweats, No weight loss, No weakness , No fatigue Eyes: No discharge ENT: No hearing loss Respiratory: No cough, No sputum, No wheezing Cardiovascular: No chest pain, No orthopnea Abdomen: No pain, No nausea, No vomiting, No GI bleeding Genitourinary - Female: No urinary frequency, No urinary urgency, No urinary retention Psychiatric: No depression symptoms Hematologic / Lymphatic: No abnormal bleeding/bruising Integumentary: No rash Physical Exam: General Appearance: WD/WN, no apparent distress Eyes: EOMI Respiratory/Chest: chest non-tender, lungs clear, normal breath sounds, no respiratory distress Cardiovascular: regular rate, rhythm, no edema, no gallop, no JVD, no murmur Abdomen / GI: normal bowel sounds, non tender, soft, no organomegaly, no pulsatile mass Neurologic/Psychiatric: cardiovascular physician assistant II-XII nml as tested, normal mood/affect, normal reflexes, oriented x 3 Skin: normal color, warm/dry Lymphatic: no adenopathy Hospital Course 56 years old female presented to the ED with acute blood loss anemia secondary to gastric ulcer secondary to possible NSAID,s rule out H-pylori infection Plan -- S/p EGD showed multiple gastric ulcers, plan for outpatient workup as per Gi consult, really appreciate GI input. -- Continue Protonix 4o mg po bid as per Gi, follow up with Gi in 2 weeks -- doing well will discharge home in self care SCD boots for DVT prophylaxis Total Time Spent: Greater than 30 minutes This includes examination of the patient, discharge planning, medication reconciliation, and communication with other providers. Discharge Instructions Please refer to the electronic Patient Visit Report (Discharge Instructions) for additional information. Follow-Up With Gi in 2 weeks Advise patient to pick a PCP for future care. Additional Copies To Masoud Renteria M.D.
== END 2017-09-15 12:21 | disposition home or self-care (01) | DRG 378 ==
LOC: C.EDB 10:51 → C.2T 13:14 → ENRESERV 13:24 → C.2T 09-14 04:30
PROVIDERS: ADMIT Internal Medicine; ATTEND Internal Medicine
PROC: 0W3P8ZZ Control Bleeding in Gastrointestinal Tract, Via Natural or Artificial Opening Endoscopic (ICD-10-PCS; principal; 2017-09-13 09:00)
PROC: 0DB68ZX Excision of Stomach, Via Natural or Artificial Opening Endoscopic, Diagnostic (ICD-10-PCS; principal; 2017-09-13 09:00)
DX: K25.4 Chronic or unspecified gastric ulcer with hemorrhage (principal); D62 Acute posthemorrhagic anemia; Z68.41 Body mass index [BMI] 40.0-44.9, adult; T39.015A Adverse effect of aspirin, initial encounter; J45.909 Unspecified asthma, uncomplicated; H81.10 Benign paroxysmal vertigo, unspecified ear; I10 Essential (primary) hypertension; E66.9 Obesity, unspecified; K29.71 Gastritis, unspecified, with bleeding; Y92.019 Unspecified place in single-family (private) house as the place of occurrence of the external cause; R53.1 Weakness

== ENCOUNTER → 2017-09-17 | Outpatient (CLI) | payer BC, OTHER ==
[~2017-09-17] MED LIST changes: +NAPR250T3 PO; +PRT40 PO
[2017-09-17 12:38] LABS: HEMATOCRIT 29.5 % (37-47)
== END | disposition home or self-care (01) ==
LOC: C.LAB1850 10:21
PROVIDERS: ATTEND Internal Medicine
DX: K92.2 Gastrointestinal hemorrhage, unspecified (principal)

== ENCOUNTER → 2017-11-26 | Outpatient (CLI) | payer OTHER ==
[~2017-11-26] MED LIST changes: +ADVIN25/60 INH; +ASCA500 PO; -IBUP600T44 PO; +MISCCAP80 PO; +MULT-506 PO; -NAPR250T3 PO; +PANT40TA PO; +TURM1CAP4 PO
[2017-11-26 17:15] LABS: HEMATOCRIT 33.3 % (37-47); HEMOGLOBIN 9.9 g/dL (12.0-16.0); MEAN CELL VOLUME 73.7 fL (80-100); MEAN CORPUSCULAR HEMOGLOBIN 21.9 pg (25-34); MEAN CORPUSCULAR HGB CONC 29.7 g/dl (32-36); NUCLEATED RED BLOOD CELL ABS 0.02 K/uL (0-0); PLATELET COUNT 450 K/uL (130-400); RED CELL DISTRIBUTION WIDTH CV 17.4 % (11.5-14.5); RED CELL DISTRIBUTION WIDTH SD 47.2 fL (36.4-46.3); WHITE BLOOD COUNT 10.57 K/uL (4.8-10.8)
== END | disposition home or self-care (01) ==
LOC: C.LABBC 15:21
PROVIDERS: ATTEND Internal Medicine Gastroenterology
DX: K25.9 Gastric ulcer, unspecified as acute or chronic, without hemorrhage or perforation (principal)

== ENCOUNTER → 2017-12-13 | Day surgery (SDC) | payer OTHER ==
[2017-11-28 07:18] VITALS: BMI 43.0
[~2017-12-13] VITALS: Ht 149.9 cm; Wt 96.8 kg
[~2017-12-13] MED LIST changes: +FENTANYL CITRATE INJ 50 MCG/1 ML 2 ML VIAL ONE; +LIDOCAINE HCL 2% 2 ML VIAL (20MG/ML) ONE; +PROPOFOL IV EMULSION 10 MG/ML 20 ML VIAL IV ONE; -PRT40 PO; +SODIUM CHLORIDE 0.9% 500ML 500 ML IV ONE
[2017-12-13 10:43] VITALS: Ht 149.9 cm; Wt 96.8 kg
--- NOTE | 2017-12-13 11:53 | Endo History and Physical ---
History & Physical Date of Service: Dec 13, 2017. Chief Complaint: COLON SCREENING EGD F/U BLEED AUG. Referring Physician: WILMA GUERRA History of Present Illness f/u screening colon 1st Past Surgical History Hx Cardiac Surgery: No Hx Internal Defibrillator: No Hx Pacemaker: No Hx Abdominal Surgery: No Hx of Implantable Prosthesis: No Hx Post-Op Nausea and Vomiting: No Hx Cancer Surgery: No Hx Thoracic Surgery: No Hx Orthopedic: No Hx Urinary Tract Surgery: No Family History None Social History Smoking Status: Never Smoker Hx Substance Use: No Hx Alcohol Use: Yes (1 GLASS OF WINE/ 5XWEEK) Allergies Coded Allergies: NO KNOWN DRUG ALLERGIES (Verified Allergy, Unknown, , 11/28/17) Current Medications Reported Home Medications Medications Dose Route/Sig Max Daily Dose Days Date Category Vitamin C (Ascorbic Acid) 500 Mg Tab 500 Mg PO DAILY 11/28/17 Reported Multivitamin (Multivitamins) Tab 1 Tab PO DAILY 11/28/17 Reported Turmeric (Turmeric (Curcuma Longa)) 500 Mg Cap 500 Mg PO DAILY 11/28/17 Reported Probiotic (Probiotic Product) 1 Cap Cap 1 Cap PO DAILY 11/28/17 Reported Advair Diskus 250/50 60 Dose (Fluticasone Prop/Salmeterol) 1 Ea Aerp 1 Puff INH HS 11/28/17 Reported Protonix (Pantoprazole Sodium) 40 Mg Tab 40 Mg PO HS 11/28/17 Reported Vital Signs Weight (Kilograms): 96.82 Height (Feet): 4 Height (Inches): 11 Date Time Temp Pulse Resp B/P (MAP) Pulse Ox O2 Delivery O2 Flow Rate FiO2 12/13/17 11:02 37.2 104 20 156/98 (117) 93 Room Air Physical Exam General Appearance: WD/WN, no apparent distress Respiratory/Chest: Auscultation: breath sounds normal Cardiovascular: Heart Auscultation: RRR Abdomen: Bowel Sounds: normal Inspection & Palpation: soft, non-distended, no tenderness, guarding & rebound Assessment and Plan EGD and colon today
--- NOTE | 2017-12-13 13:00 | Discharge Instructions ---
Endoscopy Patient Instructions Date / Procedure(s) Performed Dec 13, 2017. Colonoscopy, EGD Allergy Information Coded Allergies: NO KNOWN DRUG ALLERGIES (Verified Allergy, Unknown, , 11/28/17) Discharge Date / Findings Dec 13, 2017. 1) HH; gastric ulcer healed- Bx taken 2) colon polyps Medication Instructions Restart Stopped Medication(s): Reported Home Medications Medications Dose Route/Sig Max Daily Dose Days Date Category Vitamin C (Ascorbic Acid) 500 Mg Tab 500 Mg PO DAILY 11/28/17 Reported Multivitamin (Multivitamins) Tab 1 Tab PO DAILY 11/28/17 Reported Turmeric (Turmeric (Curcuma Longa)) 500 Mg Cap 500 Mg PO DAILY 11/28/17 Reported Probiotic (Probiotic Product) 1 Cap Cap 1 Cap PO DAILY 11/28/17 Reported Advair Diskus 250/50 60 Dose (Fluticasone Prop/Salmeterol) 1 Ea Aerp 1 Puff INH HS 11/28/17 Reported Protonix (Pantoprazole Sodium) 40 Mg Tab 40 Mg PO HS 11/28/17 Reported Provider Instructions Activity Restrictions - No exercising or heavy lifting for 24 hours. - Do not drink alcohol the day of the procedure. - Do not drive a car or operate machinery until the day after the procedure. - Do not make any important decisions or sign important papers in 24 hours after the procedure. Following Day: - Return to full activity which may include returning to work/school. Diet Start your diet with liquids and light foods (jello, soup, juice, toast). Then eat your usual diet if not nauseated. Treatment For Common After Affects For mild abdominal pain, bloating, or excessive gas: - Rest - Eat lightly - Lie on right side Follow-Up Information Follow-up with WILMA GUERRA as scheduled Anesthesia Information What You Should Know You have had a procedure that required some medicine to reduce anxiety and discomfort. This treatment is called moderate sedation. After receiving the treatment, you may be sleepy, but you will be able to breathe on your own. The effects of the treatment may last for several hours. Follow these instructions along with Activity/Diet recommendations noted above: * Do NOT do anything where dizziness or clumsiness would be dangerous. * Rest quietly at home today, then you can be up and about tomorrow. * Have a responsible person stay with you the rest of today. * You may have had an I.V. today. If so, you may take the dressing off later today. Recommendations Call your doctor if: * Trouble breathing * Continuous vomiting for more than 24 hours * Temperature above 101 degrees * Severe abdominal pain or bloating * Pain not relieved by pain medicine ordered * There is increased drainage or redness from any incision * A large amount of rectal bleeding greater than 2-3 tablespoons. (If you had a polyp/s removed or have hemorrhoids, a small amount of blood - from the rectum is to be expected.) * You have any unanswered questions or concerns. IN THE EVENT OF A SERIOUS EMERGENCY, GO TO THE NEAREST EMERGENCY ROOM Your discharge instructions were prepared by provider Masoud Renteria. Patient Instructions Signature Page December Patient (or Guardian) Signature/Date: I have read and understand the instructions given to me by my caregivers. Caregiver/RN/Doctor Signature/Date: The above-named patient and/or guardian has received patient instructions on this date. + Original Patient Signature Page (only) stays with chart. Please make copy for patient.
--- NOTE | 2017-12-13 13:11 | GI REPORT ---
Procedure Date: 12/13/2017 12:30 PM Procedure: Colonoscopy Indications: Screening for colorectal malignant neoplasm, This is the patient's first colonoscopy Medicines: Propofol per Anesthesia Complications: No immediate complications. Estimated blood loss: Minimal. Estimated Blood Loss: Estimated blood loss was minimal. Procedure: Pre-Anesthesia Assessment: - Prior to the procedure, a History and Physical was performed, and patient medications and allergies were reviewed. The patient's tolerance of previous anesthesia was also reviewed. The risks and benefits of the procedure and the sedation options and risks were discussed with the patient. All questions were answered, and informed consent was obtained. Prior Anticoagulants: The patient has taken no previous anticoagulant or antiplatelet agents. ASA Grade Assessment: III - A patient with severe systemic disease. After reviewing the risks and benefits, the patient was deemed in satisfactory condition to undergo the procedure. After I obtained informed consent, the scope was passed under direct vision. Throughout the procedure, the patient's blood pressure, pulse, and oxygen saturations were monitored continuously. The scope was introduced through the anus and advanced to the terminal ileum, with identification of the appendiceal orifice and IC valve. The colonoscopy was performed without difficulty. The patient tolerated the procedure well. The quality of the bowel preparation was good. Findings: The perianal and digital rectal examinations were normal. Pertinent negatives include normal sphincter tone, no palpable rectal lesions and no anal lesion or abnormality was detected. A 3 mm polyp was found in the transverse colon. The polyp was sessile. The polyp was removed with a cold biopsy forceps. Resection and retrieval were complete. Estimated blood loss was minimal. Verification of patient identification for the specimen was done by the physician and wind tunnel technician using the patient's name and medical record number. A 3 mm polyp was found in the rectum. The polyp was sessile. The polyp was removed with a cold biopsy forceps. Resection and retrieval were complete. Estimated blood loss was minimal. Verification of patient identification for the specimen was done by the physician and wind tunnel technician using the patient's name and medical record number. The exam was otherwise without abnormality. The terminal ileum appeared normal. The retroflexed view of the distal rectum and anal verge was normal and showed no anal or rectal abnormalities. Impression: - One 3 mm polyp in the transverse colon, removed with a cold biopsy forceps. Resected and retrieved. - One 3 mm polyp in the rectum, removed with a cold biopsy forceps. Resected and retrieved. - The examination was otherwise normal. - The examined portion of the ileum was normal. - The distal rectum and anal verge are normal on retroflexion view. Recommendation: - Discharge patient to home (ambulatory). - Resume regular diet. - Continue present medications. - Await pathology results. - Repeat colonoscopy for surveillance based on pathology results. - Return to referring physician as previously scheduled. MD Masoud Nunez MD 12/13/2017 1:10:34 PM This report has been signed electronically. Note Initiated On: 12/13/2017 12:30 PM I attest to the content of the Intraoperative Record and orders documented therein, exceptions below
[2017-12-13 13:23] VITALS: BP 159/97; PULSE 96; O2SAT 95
--- NOTE | 2017-12-13 13:24 | GI REPORT ---
Procedure Date: 12/13/2017 12:18 PM Procedure: Upper GI endoscopy Indications: Acute gastric ulcer with obstruction, Follow-up of acute gastric ulcer with obstruction Medicines: General Anesthesia Complications: No immediate complications. Estimated blood loss: Minimal. Estimated Blood Loss: Estimated blood loss was minimal. Procedure: Pre-Anesthesia Assessment: - Prior to the procedure, a History and Physical was performed, and patient medications and allergies were reviewed. The patient's tolerance of previous anesthesia was also reviewed. The risks and benefits of the procedure and the sedation options and risks were discussed with the patient. All questions were answered, and informed consent was obtained. Prior Anticoagulants: The patient has taken no previous anticoagulant or antiplatelet agents. ASA Grade Assessment: III - A patient with severe systemic disease. After reviewing the risks and benefits, the patient was deemed in satisfactory condition to undergo the procedure. After obtaining informed consent, the endoscope was passed under direct vision. Throughout the procedure, the patient's blood pressure, pulse, and oxygen saturations were monitored continuously. The scope was introduced through the mouth, and advanced to the second part of duodenum. The upper GI endoscopy was accomplished without difficulty. The patient tolerated the procedure well. Findings: The examined esophagus was normal. A small hiatal hernia was found. The proximal extent of the gastric folds (end of tubular esophagus) was 37 cm from the incisors. The hiatal narrowing was 39 cm from the incisors. The Z-line was 37 cm from the incisors. A healed ulcer was found in the gastric antrum and in the prepyloric region of the stomach. The scar tissue was healthy in appearance. Biopsies were taken with a cold forceps for histology. Estimated blood loss was minimal. Verification of patient identification for the specimen was done by the physician and radiography technician using the patient's name and medical record number. The examined duodenum was normal. Biopsies for histology were taken with a cold forceps for evaluation of celiac disease. Estimated blood loss was minimal. Verification of patient identification for the specimen was done by the physician and radiography technician using the patient's name and medical record number. The cardia and gastric fundus were normal on retroflexion. Retained gastric contents are not identified on this exam. Impression: - Normal esophagus. - Small hiatal hernia. - Scar in the gastric antrum and in the prepyloric region of the stomach. Biopsied. - Normal examined duodenum. Biopsied. Recommendation: - Discharge patient to home (ambulatory). - Resume regular diet. - Continue present medications. - Await pathology results. - Return to referring physician as previously scheduled. MD Masodu Nunez MD 12/13/2017 1:24:11 PM This report has been signed electronically. Note Initiated On: 12/13/2017 12:18 PM I attest to the content of the Intraoperative Record and orders documented therein, exceptions below
--- NOTE | 2017-12-13 13:31 | Anesthesiology Progress Note ---
Anesthesia Post Op Note Date & Time Dec 13, 2017 at 13:31 Vital Signs Pain Intensity: 0 Vital Signs Past 12 Hours Date Time Temp Pulse Resp B/P (MAP) Pulse Ox O2 Delivery O2 Flow Rate FiO2 12/13/17 13:23 96 20 159/97 (117) 95 Nasal Cannula 12/13/17 13:08 99 20 153/85 (107) 97 Nasal Cannula 12/13/17 12:53 104 20 139/82 (101) 100 Mask 5 12/13/17 11:02 37.2 104 20 156/98 (117) 93 Room Air Notes Mental Status: alert / awake / arousable, participated in evaluation Pt Amnestic to Procedure: Yes Nausea / Vomiting: adequately controlled Pain: adequately controlled Airway Patency, RR, SpO2: stable & adequate BP & HR: stable & adequate Hydration State: stable & adequate Anesthetic Complications: no major complications apparent
== END | disposition home or self-care (01) ==
LOC: C.GI 10:33
PROVIDERS: ATTEND Internal Medicine Gastroenterology
DX: Z12.11 Encounter for screening for malignant neoplasm of colon (principal); K25.3 Acute gastric ulcer without hemorrhage or perforation; D12.8 Benign neoplasm of rectum; D12.3 Benign neoplasm of transverse colon; K44.9 Diaphragmatic hernia without obstruction or gangrene; K29.60 Other gastritis without bleeding; Z86.010 Personal history of colon polyps; J45.909 Unspecified asthma, uncomplicated; E66.9 Obesity, unspecified; Z68.41 Body mass index [BMI] 40.0-44.9, adult

== ENCOUNTER → 2018-01-23 | Outpatient (CLI) | payer OTHER ==
[~2018-01-23] MED LIST changes: -FENTANYL CITRATE INJ 50 MCG/1 ML 2 ML VIAL ONE; -LIDOCAINE HCL 2% 2 ML VIAL (20MG/ML) ONE; -PROPOFOL IV EMULSION 10 MG/ML 20 ML VIAL IV ONE; -SODIUM CHLORIDE 0.9% 500ML 500 ML IV ONE
--- NOTE | 2018-01-23 10:14 | DIAGNOSTIC IMAGING REPORT ---
(CHEST) THORAX WITHOUT CT DOSE: 591.89 mGycm CLINICAL HISTORY: 57 years-old Female with R05 MnicsT61.9 Allergic [id number] Shortness of [id number]. Acute cough with shortness of breath TECHNIQUE: Multiaxial CT images of the chest were performed without contrast. A dose lowering technique was utilized adhering to the principles of ALARA. COMPARISON: Chest radiograph 09/12/2017. FINDINGS: No dominant thyroid nodule or pathologic adenopathy identified. Heart is normal in size without pericardial effusion. Thoracic aorta appears to be normal in both course and caliber. The unopacified pulmonary arterial tree is unremarkable. There is no pneumothorax or pleural effusion. There is mild dependent subsegmental bibasilar atelectasis. 3 mm solid nodule adjacent to the left major fissure on image 123 series 4 suggests perifissural lymph node with additional lymph node seen on image 108 series 4. No lobar airspace consolidation to suggest pneumonia. Central airways are patent. No significant central bronchial wall thickening to suggest bronchitis. No acute process of the imaged upper abdomen. Soft tissues and breast parenchyma appear unremarkable. Bones of the chest appear grossly intact. Large Schmorl's node involves the superior endplate of T12, age-indeterminate however likely chronic. IMPRESSION: 1. No acute intrathoracic abnormality identified. No lobar airspace consolidation to suggest pneumonia. 2. No pathologic adenopathy. 3. 3 mm solid nodule adjacent to the left major fissure suggests physiologic perifissural lymph node. Electronically signed by: Russel Garcia M.D. 01/23/2018 10:12 AM Dictated Date/Time: 01/23/2018 10:06 AM
== END | disposition home or self-care (01) ==
LOC: C.CTS 09:44
PROVIDERS: ATTEND Internal Medicine Critical Care Medicine
DX: J30.9 Allergic rhinitis, unspecified (principal); R06.02 Shortness of breath; R05 Cough; R91.1 Solitary pulmonary nodule

== ENCOUNTER 2019-04-27 16:25 | Inpatient (IN) ==
[2019-04-27] MEDS ORDERED: SODIUM CHLORIDE 0.9% 250 ML IV PRN (18:01)
[2019-04-27 18:35] LABS: Partial Thromboplastin Ratio 0.9; Partial Thromboplastin Time 25.5 Seconds (21.0-31.0)
[2019-04-27 18:43] LABS: Basophils # (auto) 0.02 K/uL (0-0.2); Basophils % (auto) 0.2 %; Eosinophils # (auto) 0.26 K/uL (0-0.5); Eosinophils % (auto) 2.8 %; Hematocrit (blood only) 32.1 % (37-47); Hemoglobin 10.5 g/dL (12.0-16.0); Immature Granulocytes # (auto) 0.02 K/uL (0.00-0.02); Immature Granulocytes % (auto) 0.2 %; Lymphocytes # (auto) 2.05 K/uL (1.2-3.4); Lymphocytes % (auto) 22.4 %; Mean Corpuscular Volume 87.2 fL (80-100); Mean Platelet Volume 9.8 fL (7.4-10.4); Monocytes # (auto) 0.52 K/uL (0.11-0.59); Monocytes % (auto) 5.7 %; Neutrophils # (auto) 6.27 K/uL (1.4-6.5); Neutrophils % (auto) 68.7 %; Platelet Count 292 K/uL (130-400); RDW Coefficient of Variation 13.7 % (11.5-14.5); RDW Standard Deviation 43.7 fL (36.4-46.3); Red Blood Count 3.68 M/uL (4.2-5.4); White Blood Count 9.14 K/uL (4.8-10.8)
[2019-04-27 18:44] LABS: Mean Corpuscular Hgb Conc 32.7 g/dL (32-36)
[2019-04-27] MEDS: SODIUM CHLORIDE 0.9% 1000ML 1,000 ML IV SCH (18:54)
[2019-04-27 18:57] LABS: Alanine Aminotransferase 24 U/L (12-78); Albumin Level 3.7 gm/dl (3.4-5.0); Aspartate Aminotransferase 15 U/L (15-37); BUN Creatinine Ratio 20.5 (10-20); Blood Urea Nitrogen 14 mg/dl (7-18); Calcium 9.6 mg/dl (8.5-10.1); Carbon Dioxide 28 mmol/L (21-32); Chloride 108 mmol/L (98-107); Est GFR (African American) 111.5; Est GFR (Non-African American) 96.2; Glucose 120 mg/dl (70-99); Potassium 4.2 mmol/L (3.5-5.1); Sodium 141 mmol/L (136-145)
[2019-04-27 19:00] LABS: Alkaline Phosphatase 73 U/L (45-117); Bilirubin,Total 0.2 mg/dl (0.2-1); Globulin 3.8 gm/dl (2.5-4.0); Total Protein 7.5 gm/dl (6.4-8.2)
--- NOTE | 2019-04-27 20:20 | History & Physical Report ---
Date of Service April 27, 2019 Assessment & Plan (1) Gastrointestinal bleed: #GI Bleed Patient presenting with a one-week history of stool color changes, intermittent epigastric pain, fatigue concerning for recurrence of her peptic ulcer disease. She presents as a direct admission from Dr. Warner. She states her current symptoms is similar to her prior presentation approximately 1.5 years ago secondary to NSAID use treated by Dr. Renteria. Currently she is feeling well, no acute distress, negative for symptoms of acute anemia. Patient is requesting diet and to be made n.p.o. after midnight for planned EGD tomorrow. Admit to inpatient H&H every 6 hours Type and crossed, holding 2 units of PRBCs transfuse if patient becomes symptomatic and/or hemoglobin drops below 7 Follow-up Hemoccult Full liquid diet, n.p.o. after midnight for planned EGD CBC, CMP in the a.m. MIVF with NSS at 100 mls an hour IV pantoprazole 40 mg twice daily History of Present Illness Primary Care Provider: Torie Collins Patient is a 58-year-old previously healthy female, with past medical history of peptic ulcer disease, BPPV, bronchitis, and asthma patient presents as a direct admission from Dr. Damon Warner's office. Patient has a history of peptic ulcer disease secondary to NSAID usage, previously treated with cauterization by Dr. Renteria. Patient was in her usual state of health until last week when she started noticing changes in her stool color. With no other associated symptoms. These color changes persisted into the weekend. Over the weekend she experienced approximately 1 day of diarrhea, nonbloody, per the patient melanotic. The diarrhea resolved after 1 day however the melanotic school stool persisted. On Saturday the patient endorsed nausea, and epigastric pain when she had an empty stomach, this was relieved by eating a meal. The patient's symptoms persisted and she began to feel fatigued, this caused her concern and she subsequently presented to Dr. Warner's office for evaluation. She described to Dr. Warner that her current symptoms were pretty similar to her previous episode. Dr. Crespo referred her to [facility] for direct admission. Patient denies any symptoms of acute anemia including passing out, tachycardia, dizziness, headache. Patient denies any recent illness, shortness of breath, change in vision, change in hearing, change in bowel or bladder habit except as otherwise described, chest pain, chest pressure, fever, chills, change in motor, change in sensory function, or other concerning signs or symptoms that would indicate an inciting event and/or acute infection. Patient requesting diet and to be made n.p.o. at midnight, otherwise no acute concerns and all questions answered. Allergies Allergy/AdvReac Type Severity Reaction Status Date / Time No Known Drug Allergies Allergy Unknown Verified 04/28/19 14:18 Home Medications Home Medications Medication Instructions Recorded Confirmed Type Multivitamin 1 tab PO DAILY #0 tab 11/28/17 04/27/19 History PROBIOTIC PRODUCT (PROBIOTIC) 1 cap PO DAILY #0 11/28/17 04/27/19 History Past Med/Surg History Medical History BPPV (benign paroxysmal positional vertigo) Osteoarthritis Surgical History H/O dilation and curettage Family History Brother Cancer Leukemia Brother Cancer Leukemia Mother Rheumatoid arthritis Father IPF (idiopathic pulmonary fibrosis) Social History Preferred Language: Guamanian Communication Ability: Effective 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 Beliefs That Will Affect Care: None Current Living Situation: Spouse Other Information That Helps Us Care for You: No Feels Safe at Home: Yes Safety Concerns: Feels Safe At This Time Smoking Status: Never smoker Do You Dip or Chew Tobacco: No ; Second Hand Exposure: No ; Tobacco Cessation Education Requested by Patient: No Hx Alcohol Use: Yes Alcohol type: wine Hx Substance Use: No Review of Systems Review of Systems: All systems reviewed & are unremarkable except as noted in HPI & below Physical Exam Physical Exam: General: Middle-aged female, no acute distress HEENT: Normocephalic atraumatic Neck: Normal visual inspection, negative JVD, trachea midline Cardiac: Regular rate and rhythm, no murmurs rubs or gallops, negative pedal edema, negative calf tenderness Respiratory: Clear to auscultation bilaterally, no wheezes, no rales, no rhonchi, symmetrical chest rise GI: Normal bowel sounds, soft, nontender, nondistended in all 4 quadrants, negative for epigastric pain MSK: Moves all extremities Skin: No new rashes Neuro: Alert and oriented x4 Psych: Calm and cooperative, anxious regarding her potential peptic ulcer Results & Data Vital Signs (Past 12 Hours) Vital Signs Temp Resp BP Pulse Ox 04/27/19 18:32 37.0 C 18 114/76 96 Laboratory Results 04/27/19 04/27/19 04/27/19 Range/Units 18:13 18:13 18:13 WBC (4.8-10.8) K/uL RBC (4.2-5.4) M/uL Hgb (12.0-16.0) g/dL Hct (37-47) % MCV (80-100) fL MCH (25-34) pg MCHC (32-36) g/dL RDW Std Deviation (36.4-46.3) fL RDW Coeff of Yang (11.5-14.5) % Plt Count (130-400) K/uL MPV (7.4-10.4) fL Immature Gran % (Auto) % Neut % (Auto) % Lymph % (Auto) % Shannon % (Auto) % Eos % (Auto) % Baso % (Auto) % Immature Gran # (Auto) (0.00-0.02) K/uL Neut # (Auto) (1.4-6.5) K/uL Lymph # (Auto) (1.2-3.4) K/uL Shannon # (Auto) (0.11-0.59) K/uL Eos # (Auto) (0-0.5) K/uL Baso # (Auto) (0-0.2) K/uL PT 10.0 (9.0-12.0) Seconds INR 1.0 (0.9-1.1) APTT 25.5 (21.0-31.0) Seconds PTT Ratio 0.9 Sodium 141 (136-145) mmol/L Potassium 4.2 (3.5-5.1) mmol/L Chloride 108 H (98-107) mmol/L Carbon Dioxide 28 (21-32) mmol/L Anion Gap 5.0 (3-11) BUN 14 (7-18) mg/dl Creatinine 0.70 (0.6-1.2) mg/dl Est Cr Clr Drug Dosing Not Reportable Est GFR ( Amer) 111.5 Est GFR (Non-Af Amer) 96.2 BUN/Creatinine Ratio 20.5 H (10-20) Glucose 120 H (70-99) mg/dl Calcium 9.6 (8.5-10.1) mg/dl Total Bilirubin 0.2 (0.2-1) mg/dl AST 15 (15-37) U/L ALT 24 (12-78) U/L Alkaline Phosphatase 73 (45-117) U/L Total Protein 7.5 (6.4-8.2) gm/dl Albumin 3.7 (3.4-5.0) gm/dl Globulin 3.8 (2.5-4.0) gm/dl Albumin/Globulin Ratio 1.0 (0.9-2) Blood Type O Positive Antibody Screen NEGATIVE Crossmatch See Detail 04/27/19 Range/Units 18:13 WBC 9.14 (4.8-10.8) K/uL RBC 3.68 L (4.2-5.4) M/uL Hgb 10.5 L (12.0-16.0) g/dL Hct 32.1 L (37-47) % MCV 87.2 (80-100) fL MCH 28.5 (25-34) pg MCHC 32.7 (32-36) g/dL RDW Std Deviation 43.7 (36.4-46.3) fL RDW Coeff of Yang 13.7 (11.5-14.5) % Plt Count 292 (130-400) K/uL MPV 9.8 (7.4-10.4) fL Immature Gran % (Auto) 0.2 % Neut % (Auto) 68.7 % Lymph % (Auto) 22.4 % Shannon % (Auto) 5.7 % Eos % (Auto) 2.8 % Baso % (Auto) 0.2 % Immature Gran # (Auto) 0.02 (0.00-0.02) K/uL Neut # (Auto) 6.27 (1.4-6.5) K/uL Lymph # (Auto) 2.05 (1.2-3.4) K/uL Shannon # (Auto) 0.52 (0.11-0.59) K/uL Eos # (Auto) 0.26 (0-0.5) K/uL Baso # (Auto) 0.02 (0-0.2) K/uL PT (9.0-12.0) Seconds INR (0.9-1.1) APTT (21.0-31.0) Seconds PTT Ratio Sodium (136-145) mmol/L Potassium (3.5-5.1) mmol/L Chloride (98-107) mmol/L Carbon Dioxide (21-32) mmol/L Anion Gap (3-11) BUN (7-18) mg/dl Creatinine (0.6-1.2) mg/dl Est Cr Clr Drug Dosing Est GFR ( Amer) Est GFR (Non-Af Amer) BUN/Creatinine Ratio (10-20) Glucose (70-99) mg/dl Calcium (8.5-10.1) mg/dl Total Bilirubin (0.2-1) mg/dl AST (15-37) U/L ALT (12-78) U/L Alkaline Phosphatase (45-117) U/L Total Protein (6.4-8.2) gm/dl Albumin (3.4-5.0) gm/dl Globulin (2.5-4.0) gm/dl Albumin/Globulin Ratio (0.9-2) Blood Type Antibody Screen Crossmatch Medications Administered Current Inpatient Medications Sodium Chloride (Nss 1000ml) 1,000 mls @ 100 mls/hr IV .Q10H BASSAM Stop: 05/27/19 17:59 Last Admin: 04/27/19 18:54 Dose: 100 mls/hr Documented by: Sodium Chloride (Nss) 250 mls @ 15 mls/hr IV .[id number] PRN PRN Reason: For Transfusion Stop: 05/27/19 18:00 Pantoprazole Sodium 40 mg/ (Syringe) 10 mls @ 5 mls/min IV BID@0900,2100 [facility] Stop: 05/27/19 20:59 Code Status & VTE Plan Code Status Full Code VTE Prophylaxis Plan VTE Prophylaxis will be ordered: Yes Supervising Physician Co-Signing Physician Notes Attending addendum: I have physically seen this patient, have supervised the medical residents activities, and agree with the H&P unless as otherwise noted. Assessment and Plan: GI bleed/history of bleeding gastric ulcer secondary to NSAID use in the past- Direct admission from the office of Dr. Warner. Symptoms are similar to her previous admission. NPO Monitored bed H&H's every 6 hours Ordered pantoprazole 40 mg IV twice daily. NSS at 100 mils per hour. Follow serial CBC with differential and chemistry profile. Consult gastroenterology Dr. Warner. Remainder orders notations as noted. PG Care Time/CCT Total # of Minutes Spent Total Time Spent with Patient: Total time spent is greater than 50% in coordination of care (as documented) at patient's floor/unit and/or counseling patient: Resident Activity Tracking Resident Involvement: Resident Care Provided Care Provided: Adult [facility] Medicine
[2019-04-27] MEDS ORDERED: POLYETHYLENE (MIRALAX) 17 GM PACK PO PRN (20:24)
[2019-04-27] MEDS ORDERED: ACETAMINOPHEN 325 MG TAB PO PRN (20:24)
[2019-04-27] MEDS ORDERED: ONDANSETRON INJ 2 MG/ML 2 ML VIAL IV PRN (20:24)
[2019-04-27] MEDS ORDERED: ACETAMINOPHEN 65 ML IV PRN (20:30)
[2019-04-27] MEDS ORDERED: PANTOprazole 40 MG TAB PO SCH (21:00)
[2019-04-27 21:03] LABS: Hematocrit (blood only) 28.6 % (37-47); Hemoglobin 9.3 g/dL (12.0-16.0)
[2019-04-27] MEDS: FLUTICASONE/SALMETEROL 250/50 (ADVAIR) 14 PUFF/1 INHALER INH SCH (22:14)
[2019-04-27] MEDS: PANTOprazole 40 MG in SYRINGE 0 ML IV SCH (22:15)
[2019-04-28 02:26] LABS: Basophils # (auto) 0.02 K/uL (0-0.2); Basophils % (auto) 0.3 %; Eosinophils # (auto) 0.32 K/uL (0-0.5); Hematocrit (blood only) 25.6 % (37-47); Hemoglobin 8.4 g/dL (12.0-16.0); Immature Granulocytes # (auto) 0.01 K/uL (0.00-0.02); Immature Granulocytes % (auto) 0.2 %; Lymphocytes # (auto) 2.04 K/uL (1.2-3.4); Lymphocytes % (auto) 32.2 %; Mean Corpuscular Hgb Conc 32.8 g/dL (32-36); Mean Corpuscular Volume 88.3 fL (80-100); Mean Platelet Volume 9.3 fL (7.4-10.4); Monocytes # (auto) 0.35 K/uL (0.11-0.59); Monocytes % (auto) 5.5 %; Neutrophils % (auto) 56.8 %; Platelet Count 218 K/uL (130-400); RDW Coefficient of Variation 13.8 % (11.5-14.5); RDW Standard Deviation 44.4 fL (36.4-46.3); White Blood Count 6.34 K/uL (4.8-10.8)
[2019-04-28 03:00] LABS: Albumin Globulin Ratio 0.9 (0.9-2); Albumin Level 2.7 gm/dl (3.4-5.0); BUN Creatinine Ratio 17.8 (10-20); Bilirubin,Total 0.2 mg/dl (0.2-1); Calcium 7.9 mg/dl (8.5-10.1); Est GFR (African American) 117.9; Est GFR (Non-African American) 101.7; Globulin 2.9 gm/dl (2.5-4.0); Potassium 3.3 mmol/L (3.5-5.1); Total Protein 5.6 gm/dl (6.4-8.2)
[2019-04-28] MEDS: SODIUM CHLORIDE 0.9% 1000ML 1,000 ML IV SCH ×2 (03:35→13:32)
[2019-04-28 08:23] LABS: Hematocrit (blood only) 27.7 % (37-47); Hemoglobin 9.1 g/dL (12.0-16.0)
[2019-04-28] MEDS: PANTOprazole 40 MG in SYRINGE 0 ML IV SCH ×2 (08:35→21:06)
[2019-04-28] MEDS: POTASSIUM CHLORIDE / WTR 10 MEQ/100 ML PLCT IV SCH ×2 (13:07→16:06)
[2019-04-28] MEDS ORDERED: PROPOFOL IV EMULSION 10 MG/ML 20 ML VIAL IV ONE ×2 (14:19→14:55)
[2019-04-28] MEDS ORDERED: LIDOCAINE HCL 2% 2 ML VIAL/AMP(20MG/ML) INFIL ONE (14:19)
--- NOTE | 2019-04-28 14:26 | Gastrointestinal Consultation ---
Date of Consultation April 28, 2019 Assessment & Plan (1) Gastrointestinal bleed: Melena most likely UGI source so EGD today. Proc and risks explained which include but not limited to med reaction, bleeding, perforation, aspiration. acute blood loss anemia History of Present Illness Reason for Consultation: GI bleeding Requesting Physician: Carrillo Brewer MD Attending Physician: Carrillo Brewer MD History of Present Illness CC black stools HPI Pt seen in my office yesterday c/o black stools. She had tachycardia getting up on exam table. Rectal strongly heme pos black stool. She had EGD 08/2017 with 3 gastric ulcers one with visible vessel cauterized. She was on Aleve then. No NSAIDS since then until recently Celebrex less than a month in December and two weeks ago one Ibuprofen and one week ago Alevve. . EGD 12/13/17 healed gastric ulcers and duod bx neg. Bernie 11/2017 TC and rectal polyps path hyperplastic. Pt sent from office direct admit. She states had 2 stools since admit. Hgb 10.5 on admit and 9.1 most recently. PT/PTT ok. LFTs normal She has epi pain and fatigue. Allergies Allergy/AdvReac Type Severity Reaction Status Date / Time No Known Drug Allergies Allergy Unknown Verified 04/28/19 14:18 Home Medications Home Medications Medication Instructions Recorded Confirmed Type Multivitamin 1 tab PO DAILY #0 tab 11/28/17 04/27/19 History PROBIOTIC PRODUCT (PROBIOTIC) 1 cap PO DAILY #0 11/28/17 04/27/19 History Patient History Medical History BPPV (benign paroxysmal positional vertigo) Osteoarthritis Surgical History H/O dilation and curettage Family History Brother Cancer Leukemia Brother Cancer Leukemia Mother Rheumatoid arthritis Father IPF (idiopathic pulmonary fibrosis) Social History Preferred Language: Maltese Communication Ability: Effective Attending Pathologist Required: No Beliefs That Will Affect Care: None Current Living Situation: Spouse Other Information That Helps Us Care for You: No Feels Safe at Home: Yes Safety Concerns: Feels Safe At This Time Smoking Status: Never smoker Do You Dip or Chew Tobacco: No ; Second Hand Exposure: No ; Tobacco Cessation Education Requested by Patient: No Hx Alcohol Use: Yes Alcohol type: wine Hx Substance Use: No Review of Systems Review of Systems: All systems reviewed & are unremarkable except as noted in HPI & below Physical Exam Constitutional: WD/WN, vitals as above Eyes: PERRL, conjunctivae normal, anicteric sclerae ENMT: external ear and nose normal, oropharynx normal Neck: normal visual inspection and trachea midline Respiratory: normal respiratory effort, lungs clear to auscultation Cardiovascular: RRR, no murmur, no edema Gastrointestinal (Abdomen): normal bowel sounds, soft, nontender, no hepatosplenomegaly Skin: normal turgor Neurologic: PERRL, EOMI, accommodation nl, no face palsy, no dysarthria Psychiatric: A+Ox3, euthymic affect Results & Data Vital Signs (Past 12 Hours) Vital Signs Temp Pulse Resp BP Pulse Ox 04/28/19 07:34 36.6 C 88 18 129/82 99
--- NOTE | 2019-04-28 14:27 | Anesthesiology Consultation ---
Date of Service April 28, 2019 Assessment & Plan (1) Encounter for pre-operative examination: Chart Review Chart Review: Acceptable Risk for Surgery and Patient NOT seen in Pre Admission Testing Consults Requested none History Surgery Operation Date: 04/28/19 10:00 Proposed Procedures p Esophagogastroduodenoscopy Dr Warner - Damon Warner Height/Weight Height: 4 ft 11 in Weight: 91.7 kg Allergies Allergy/AdvReac Type Severity Reaction Status Date / Time No Known Drug Allergies Allergy Unknown Verified 04/28/19 14:18 Medications Home Medications Medication Instructions Recorded Confirmed Last Taken Multivitamin 1 tab PO DAILY #0 tab 11/28/17 04/27/19 04/26/19 1 PROBIOTIC PRODUCT (PROBIOTIC) 1 cap PO DAILY #0 11/28/17 04/27/19 04/27/19 1 Active Medications Generic Name Dose Route Start Last Admin Trade Name Freq PRN Reason Stop Dose Admin Sodium Chloride 1,000 mls @ 100 mls/hr 04/27/19 18:00 04/28/19 13:32 Nss 1000ml IV 05/27/19 17:59 100 mls/hr .Q10H BASSAM Administration Pantoprazole Sodium 40 mg/ 10 mls @ 5 mls/min 04/27/19 21:00 04/28/19 08:35 Syringe IV 05/27/19 20:59 5 mls/min BID@0900,2100 BASSAM Administration Potassium Chloride 10 meq in 100 mls @ 100 mls/hr 04/28/19 12:45 04/28/19 14:26 K Gagan / Wtr IV 04/28/19 14:44 Infused Q1H BASSAM Infusion Fluticasone/Salmeterol 1 puffs 04/27/19 21:00 04/27/19 22:14 Advair Diskus 250/50 INH 05/27/19 20:59 Not Given HS BASSAM NPO Date Last Intake of Fluids: 04/27/19 Time Last Intake of Fluids: 23:59 Date Last Intake of Solids: 04/27/19 Time Last Intake of Solids: 23:59 Past Medical History Medical History Anemia BPPV (benign paroxysmal positional vertigo) Osteoarthritis Past Family History Family History Brother Cancer Leukemia Brother Cancer Leukemia Mother Rheumatoid arthritis Father IPF (idiopathic pulmonary fibrosis) Past Surgical History Surgical History H/O dilation and curettage Social History Smoking Status: Never smoker Do You Dip or Chew Tobacco: No Hx Alcohol Use: Yes Alcohol type: wine alcohol intake frequency: a few times a month Hx Substance Use: No substance use type: does not use Physical Exam Vital Signs Last Vital Signs Temp 36.7 C 04/28/19 14:23 Pulse 80 04/28/19 14:23 Resp 18 04/28/19 14:23 BP 120/91 04/28/19 14:23 Pulse Ox 100 04/28/19 14:23 Testing Laboratory Results 04/28/19 08:10 04/28/19 02:14 PT 10.0 Seconds (9.0-12.0) 04/27/19 18:13 INR 1.0 (0.9-1.1) 04/27/19 18:13 APTT 25.5 Seconds (21.0-31.0) 04/27/19 18:13 Blood Type O Positive 04/27/19 18:13 Antibody Screen NEGATIVE 04/27/19 18:13
--- NOTE | 2019-04-28 14:32 | Hospitalist Progress Note ---
Date of Service April 28, 2019 Assessment & Plan (1) Gastrointestinal bleed: H&H stable Type and crossed, holding 2 units of PRBCs transfuse if patient becomes symptomatic and/or hemoglobin drops below 7 hemoccult positive x 2 planned EGD this afternoon NSS at 100 mls an hour IV pantoprazole 40 mg twice daily Supervising Physician Co-Signing Physician Notes I supervised Juliann Olivares NP on this patient's care. I discussed the plan of care with her with the plan being as written in her note except for any following changes/exceptions: None. Subjective Ms. Kruse has no complaints. She will have an EGD this afternoon. Review of Systems Review of Systems: All systems reviewed & are unremarkable except as noted in HPI & below Physical Exam Physical Exam: General: no distress Eyes: normal inspection, PERLL Respiratory: chest non tender, clear to auscultation, normal breath sounds, no respiratory distress, no accessory muscle use Cardiac: regular rate and rhythm, no rub or gallop, no murmur, no edema, no jvd GI/: active bowel sounds, no abd pain or tenderness, soft, non distended Extremities: normal range of motion, normal strength, non tender Neuro/Psych: alert and oriented x 3, normal mood and affect Skin: normal color, dry Results & Data Vital Signs (Past 12 Hours) Vital Signs Temp Pulse Resp BP Pulse Ox 04/28/19 14:23 36.7 C 80 18 120/91 100 04/28/19 07:34 36.6 C 88 18 129/82 99 PG Care Time/CCT Total # of Minutes Spent Total Time Spent with Patient: Total time spent is greater than 50% in coordination of care (as documented) at patient's floor/unit and/or counseling patient:
[2019-04-28] MEDS ORDERED: MAGNESIUM CITRATE 296 ML/BTL PO STA (14:48)
--- NOTE | 2019-04-28 15:01 | GI REPORT ---
Patient Name: Sabiha Aixa Procedure Date: 04/28/2019 2:27 PM Date of : 1960 Admit Type: Inpatient Age: 58 Gender: Female Attending MD: Damon Warner MD Procedure: Upper GI endoscopy Providers: Damon Warner MD Referring MD: Naya Alston Md, Carrillo Brewer Md Indications: Melena Medicines: Monitored Anesthesia Care Complications: No immediate complications. Estimated blood loss: Minimal. Estimated Blood Loss: Estimated blood loss was minimal. Procedure: Pre-Anesthesia Assessment: - The risks and benefits of the procedure and the sedation options and risks were discussed with the patient. All questions were answered and informed consent was obtained. - Patient identification and proposed procedure were verified prior to the procedure by the physician, the nurse and the educational resource center teacher. The procedure was verified in the procedure room. After obtaining informed consent, the endoscope was passed under direct vision. Throughout the procedure, the patient's blood pressure, pulse, and oxygen saturations were monitored continuously. The scope was introduced through the mouth, and advanced to the second part of duodenum. The upper GI endoscopy was accomplished without difficulty. The patient tolerated the procedure well. Procedure and risks explained to patient which include but not limited to medication reaction, bleeding, perforation, aspiration , and missed lesions. Judicious gas insufflation was used and gas removal done on the way out. The lumen was always visualized when advancing the scope. Prep was good. Washes and suctioning used as needed to get good visualization of the mucosa. Retroflexion to look at the fundus and cardia of the stomach and GE junction was done. Findings: The Z-line was regular and was found 37 cm from the incisors. A 3 cm hiatal hernia was present. One oozing (initially not oozing but started after some patient coughing) cratered gastric ulcer with oozing hemorrhage (Arnold Class Ib) was found on the greater curvature of the gastric antrum. The lesion was 12 mm in largest dimension. Coagulation for hemostasis using argon plasma at 0.8 liters/minute and 40 king was successful. Estimated blood loss was minimal. The examined duodenum was normal. The exam was otherwise without abnormality. Impression: - Z-line regular, 37 cm from the incisors. - 3 cm hiatal hernia. - Oozing gastric ulcer with oozing hemorrhage (Arnold Class Ib). Treated with argon plasma coagulation (APC). - Normal examined duodenum. - No specimens collected. Recommendation: - [facility] care. - Continue PPI .Follow H and H. Laxative to purge gut. Check Stool for H.pylori Ag. Keep patient at least overnight. - On DC would place keep patien on Protonix 40 mg po bid, avoid NSAIDS and do repeat EGD 6-8 weeks. Damon Warner M.D. Damon Warner MD 04/28/2019 3:00:18 PM This report has been signed electronically. Note Initiated On: 04/28/2019 2:27 PM Number of Addenda: 0 I attest to the content of the Intraoperative Record and orders documented therein, exceptions below {[id number]}
--- NOTE | 2019-04-28 15:06 | Gastroenterology Progress Note ---
Date of Service April 28, 2019 Assessment & Plan (1) Gastric ulcer: See EGD report. Gastric ulcer clean base initially then started to ooze with coughing so used APC. Recommend clears, keep ovenihght, Mag citrate to purge gut. When DCed should avoid NSAIDS, use protonix 40 mg bid and do EGD in 6-8 weeks. Check stool for H.pylori also. Went over plan with patient post procedure. NO complaints post procedure. Results & Data Vital Signs (Past 12 Hours) Vital Signs Temp Pulse Resp BP Pulse Ox 04/28/19 14:52 95 H 20 131/66 96 04/28/19 14:23 36.7 C 80 18 120/91 100 04/28/19 07:34 36.6 C 88 18 129/82 99
--- NOTE | 2019-04-28 15:17 | Anesthesiology Progress Note ---
Date of Service April 28, 2019 Anesthesia Post Procedure Vital Signs Vital Signs: Temp Pulse Resp BP Pulse Ox 04/28/19 15:07 82 18 155/83 H 98 04/28/19 14:52 95 H 20 131/66 96 04/28/19 14:23 36.7 C 80 18 120/91 100 04/28/19 07:34 36.6 C 88 18 129/82 99 04/27/19 23:10 36.8 C 78 16 106/68 96 04/27/19 18:32 37.0 C 18 114/76 96 Transfer of Care Handoff Completed per policy Notes Mental Status: alert / awake / arousable Patient Amnestic to Procedure: Yes Nausea / Vomiting: adequately controlled Pain: adequately controlled Airway Patency, RR, SpO2: stable & adequate BP & HR: stable & adequate Hydration State: stable & adequate Anesthetic Complications: no major complications apparent and Pt Satisfied with anesthetic care
[2019-04-28 17:00] LABS: Hematocrit (blood only) 31.1 % (37-47)
[2019-04-28] MEDS: FLUTICASONE/SALMETEROL 250/50 (ADVAIR) 14 PUFF/1 INHALER INH SCH (21:06)
[2019-04-28 23:21] LABS: Hematocrit (blood only) 27.8 % (37-47)
[2019-04-29] MEDS: SODIUM CHLORIDE 0.9% 1000ML 1,000 ML IV SCH ×2 (00:42→10:32)
[2019-04-29 04:09] LABS: Basophils # (auto) 0.02 K/uL (0-0.2); Basophils % (auto) 0.3 %; Eosinophils % (auto) 5.9 %; Hemoglobin 8.6 g/dL (12.0-16.0); Immature Granulocytes # (auto) 0.02 K/uL (0.00-0.02); Immature Granulocytes % (auto) 0.3 %; Lymphocytes # (auto) 1.86 K/uL (1.2-3.4); Lymphocytes % (auto) 27.6 %; Mean Corpuscular Hgb Conc 31.9 g/dL (32-36); Mean Corpuscular Volume 90.6 fL (80-100); Mean Platelet Volume 9.8 fL (7.4-10.4); Monocytes # (auto) 0.56 K/uL (0.11-0.59); Monocytes % (auto) 8.3 %; Neutrophils # (auto) 3.87 K/uL (1.4-6.5); Neutrophils % (auto) 57.6 %; Platelet Count 235 K/uL (130-400); RDW Standard Deviation 46.4 fL (36.4-46.3); Red Blood Count 2.98 M/uL (4.2-5.4); White Blood Count 6.73 K/uL (4.8-10.8)
[2019-04-29 04:34] LABS: Albumin Globulin Ratio 0.9 (0.9-2); Albumin Level 2.7 gm/dl (3.4-5.0); BUN Creatinine Ratio 7.8 (10-20); Bilirubin,Total 0.2 mg/dl (0.2-1); Calcium 7.9 mg/dl (8.5-10.1); Creatinine Clr Calc Pharmacy 109.5 ml/min; Est GFR (Non-African American) 103.5; Potassium 3.6 mmol/L (3.5-5.1); Total Protein 5.7 gm/dl (6.4-8.2)
[2019-04-29 08:42] LABS: Hematocrit (blood only) 30.2 % (37-47); Hemoglobin 9.7 g/dL (12.0-16.0)
[2019-04-29] MEDS: PANTOprazole 40 MG in SYRINGE 0 ML IV SCH (09:01)
--- NOTE | 2019-04-29 09:51 | Anesthesiology Progress Note ---
Date of Service April 29, 2019 Anesthesia Post Procedure Vital Signs Vital Signs: Temp Pulse Resp BP Pulse Ox 04/29/19 07:00 36.8 C 63 16 128/84 97 04/29/19 03:15 36.8 C 73 18 97/63 L 96 04/28/19 23:30 36.8 C 69 16 116/72 97 04/28/19 15:51 36.6 C 69 16 139/84 99 04/28/19 15:22 79 18 153/92 H 98 04/28/19 15:07 82 18 155/83 H 98 04/28/19 14:52 95 H 20 131/66 96 04/28/19 14:23 36.7 C 80 18 120/91 100 Notes Mental Status: alert / awake / arousable and participated in evaluation Nausea / Vomiting: adequately controlled Pain: adequately controlled Airway Patency, RR, SpO2: stable & adequate BP & HR: stable & adequate Hydration State: stable & adequate
--- NOTE | 2019-04-29 14:11 | Discharge Summary ---
Date of Service April 29, 2019 Admission HPI Per Admitting Provider Patient is a 58-year-old previously healthy female, with past medical history of peptic ulcer disease, BPPV, bronchitis, and asthma patient presents as a direct admission from Dr. Damon Warner's office. Patient has a history of peptic ulcer disease secondary to NSAID usage, previously treated with cauterization by Dr. Renteria. Patient was in her usual state of health until last week when she started noticing changes in her stool color. With no other associated symptoms. These color changes persisted into the weekend. Over the weekend she experienced approximately 1 day of diarrhea, nonbloody, per the patient melanotic. The diarrhea resolved after 1 day however the melanotic school stool persisted. On Saturday the patient endorsed nausea, and epigastric pain when she had an empty stomach, this was relieved by eating a meal. The patient's symptoms persisted and she began to feel fatigued, this caused her concern and she subsequently presented to Dr. Warner's office for evaluation. She described to Dr. Warner that her current symptoms were pretty similar to her previous episode. Dr. Crespo referred her to [facility] for direct admission. Patient denies any symptoms of acute anemia including passing out, tachycardia, dizziness, headache. Patient denies any recent illness, shortness of breath, change in vision, change in hearing, change in bowel or bladder habit except as otherwise described, chest pain, chest pressure, fever, chills, change in motor, change in sensory function, or other concerning signs or symptoms that would indicate an inciting event and/or acute infection. Patient requesting diet and to be made n.p.o. at midnight, otherwise no acute concerns and all questions answered. Principal Diagnosis GI bleed Discharge Exam Constitutional WD/WN, vitals as above Respiratory normal respiratory effort, lungs clear to auscultation Cardiovascular RRR, no murmur, no edema Gastrointestinal (Abdomen) Inspection/Auscultation: abdomen normal to inspection and normal bowel sounds; abdomen not distended Percussion/Palpation: + abdomen tender Musculoskeletal no cyanosis or clubbing, extremities motor strength 5/5 Skin no rashes, warm and dry Neurologic moves all extremities and awake Psychiatric A+Ox3, euthymic affect Discharge Data Allergies Allergy/AdvReac Type Severity Reaction Status Date / Time No Known Drug Allergies Allergy Unknown Verified 04/28/19 14:18 Consultations 04/28/19 07:55 Consult Gastroenterology Routine Procedures Performed Operation Date: 04/28/19 10:00 Actual Procedures p EGD Hemostasis - Damon Warner [facility] Course (1) Gastrointestinal bleed: H&H stable around 8.5-9 hemoccult positive x 2 EGD 04/28 showed gastric ulcer with clean base initially then started to ooze with coughing so used APC. Mag citrate provided to purge gut. - Avoid NSAIDS, use protonix 40 mg bid and do EGD in 6-8 weeks. - H.pylori pending - IV protonix inpatient - will discharge with protonix 40 mg bid. 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 Feels good and ready to go home. Answered patient's questions about her home regimen Total Time Total Time Spent Total Time Spent (In Minutes): greater than 30 minutes Total Time Includes: Examination of the Patient, Discharge Planning, Medication Reconciliation and Communication With Other Providers Discharge Plan Discharge Items Patient Disposition: Home - Self-Care Reason For Visit: GI BLEED Discharge Diagnosis: GI Bleed Discharge Goals: Diagnostic testing and Improve disease control Activity: Resume your previous activity Non-emergency contact: Primary Care Provider and Medical Collections Specialist Call non-emergency contact if: you have any medication questions, your symptoms worsen and you have a fever Follow-up/Referrals: Damon Warner [Physician] - (Please, follow up with at [facility]. *A nurse from this office will call you with the appointment information. The office is located at [address] [place] [address] - next to [facility]. If you have any questions, call their office at [phone]. ) Torie Collins [Primary Care Provider] - 05/06/19 9:10 am (Please, follow up at [facility] Collins's office with her associate, Zoey JARRETT, on SaturdayMay 06 at 9:10 am. *If you need to change this appointment, call the office at [phone].) Addtl Provider Instructions: You will need to follow up with Dr. Allen's office for a follow up EGD in 6-8 weeks. Please see your primary care provider next week. You should follow up with her concerning the results of your H.Pylori test. You should avoid NSAIDs such as naproxen, ibuprofen and aspirin. If you have pain, you can take acetaminophen (Tylenol) 1,000 mg (1g) every 8 hours. Do not exceed 3,000 mg in 24 hours. You can take 325 mg daily or every other day (as you can tolerate) iron supplementation to help build your blood supply back up from the bleed. Prescriptions: New pantoprazole 40 mg tablet,delayed release (DR/EC) 40 mg PO BID 10 Days Qty: 20 RF: 0 Continued Multivitamin tablet 1 tab PO DAILY Qty: 0 RF: 0 PROBIOTIC PRODUCT (PROBIOTIC) 1 CAP capsule 1 cap PO DAILY Qty: 0 RF: 0 Stand-Alone Forms: [facility] Discharge Orders: Discharge Order (Routine); Ordered 04/29/19 Ordered By: Juliann Olivares Admission Data Admit Date/Time: 04/27/19 17:23 Attending Provider: Carrillo Brewer Admit Provider: Naya Alston Primary Care Provider: Torie Collins Other Providers: Damon Warner Service: Medical Other Interventions: Discharge Summary Assessment (RN) Last Done: 04/28/19 15:30 Pending Studies at Discharge: Yes Studies:: H. Pylori
[2019-04-29 14:30] LABS: Hematocrit (blood only) 27.5 % (37-47); Hemoglobin 8.9 g/dL (12.0-16.0)
--- NOTE | 2019-05-01 11:25 | Coding Query ---
BMI To promote full compliance with coding requirements relating to patient care, physician participation is requested in all cases of adult ministries director uncertainty. Please assist us with the question(s) below: Please place an X within the parenthesis (x). If other, please document: BMI 40.8 was documented in this record for this patient. If the BMI is significant, please check the box that provides a more specific associated diagnosis: ( ) Overweight/Obese ( ) Obesity (x ) Morbid obesity ( ) Obesity Hypoventilation Syndrome (OHS) ( ) Heathy weight, not significant ( ) Underweight/Thin ( ) Other, please specify Thank you Jocelynn CONTEH
== END 2019-04-29 15:51 | disposition home or self-care (01) | DRG 378 ==
LOC: 3E 17:23 → SUATTDRO 17:23

== ENCOUNTER 2022-12-18 05:10 | Observation (INO) ==
--- NOTE | 2022-11-29 10:03 | PAT Medication Instructions ---
Medication Instructions Date of Service November 29, 2022 Home Medications albuterol sulfate 90 mcg/actuation aerosol inhaler (ProAir HFA) 2 puff inhalation Q6H PRN Shortness Of Breath fluticasone propionate 50 mcg/actuation nasal spray,suspension (Flonase Allergy Relief) 1 spray intranasal UD PRN ALLERGY SEASON Bacillus coagulans 2 billion cell-calcium 140 mg capsule (Digestive Advantage Probiotic) 1 cap PO HS ascorbic acid (vitamin C) 500 mg tablet (Vitamin C) 500 mg PO HS ashwagandha extract 120 mg capsule 120 mg PO HS coenzyme Q10 100 mg capsule (CoQ-10) 100 mg PO HS hydrochlorothiazide 25 mg tablet 25 mg PO QAM losartan 50 mg tablet 50 mg PO QAM melatonin 1 mg tablet 1 mg PO HS PRN Sleep pantoprazole 40 mg tablet,delayed release 40 mg PO HS sucralfate 1 gram tablet 1 g PO ACHS STOP taking 2 weeks before surgery (or as soon as possible if surgery is within 2 weeks) ashwagandha extract 120 mg capsule 120 mg PO HS coenzyme Q10 100 mg capsule (CoQ-10) 100 mg PO HS DO NOT take the morning of surgery hydrochlorothiazide 25 mg tablet 25 mg PO QAM losartan 50 mg tablet 50 mg PO QAM sucralfate 1 gram tablet 1 g PO ACHS Take morning of surgery With a small sip of water, OTHERWISE NOTHING TO EAT OR DRINK AFTER MIDNIGHT: albuterol sulfate 90 mcg/actuation aerosol inhaler (ProAir HFA) 2 puff inhalation Q6H PRN Shortness Of Breath (use if needed; please bring rescue inhaler with you to hospital day of surgery if possible) fluticasone propionate 50 mcg/actuation nasal spray,suspension (Flonase Allergy Relief) 1 spray intranasal UD PRN ALLERGY SEASON (if needed) Take evening before surgery albuterol sulfate 90 mcg/actuation aerosol inhaler (ProAir HFA) 2 puff inhalation Q6H PRN Shortness Of Breath (if needed) fluticasone propionate 50 mcg/actuation nasal spray,suspension (Flonase Allergy Relief) 1 spray intranasal UD PRN ALLERGY SEASON (if needed) Bacillus coagulans 2 billion cell-calcium 140 mg capsule (Digestive Advantage Probiotic) 1 cap PO HS ascorbic acid (vitamin C) 500 mg tablet (Vitamin C) 500 mg PO HS melatonin 1 mg tablet 1 mg PO HS PRN Sleep (if needed) pantoprazole 40 mg tablet,delayed release 40 mg PO HS sucralfate 1 gram tablet 1 g PO ACHS Other Notes If you have any questions please call us at [phone] or [phone] or [phone] or [phone]
--- NOTE | 2022-12-05 14:12 | Anesthesiology Consultation ---
Date of Service December 05, 2022 Assessment & Plan (1) Encounter for pre-operative examination: - COVID screening: Per assessment on 12/05: No known COVID-19 positive contacts or current COVID-19 related symptoms. Travel screen negative. Patient vaccinated. At surgeon discretion if preop Covid testing being done. - Outpatient joint assessment: Pt currently scheduled for inpatient pathway. If surgeon requests review for outpatient joint pathway, patient is not recommended candidate for outpatient joint program from anesthesia standpoint. - Patient acceptable risk for surgery pending surgeon-ordered PCP preop evaluation (Zoey JARRETT/[facility], appt 12/10). Chart Review Chart Review: Patient seen in Pre Admission Testing Teaching & Discussion Pre-Anesthesia Teaching/Discussion Notes: Instructed NPO after midnight before surgery,except medications with 15 cc of water. Medication instructions provided according to the PAT guidelines. History Surgery Operation Date: 12/18/22 07:00 Proposed Procedures p Right Total Knee Arthroplasty - Franki Hernandez MD Height/Weight Height: 4 ft 11 in Weight: 100.5 kg Allergies Allergy/AdvReac Type Severity Reaction Status Date / Time No Known Allergies Allergy Verified 11/28/22 10:31 Medications Home Medications Medication Instructions Recorded Confirmed Last Taken albuterol sulfate 90 mcg/actuation 2 puff inhalation Q6H PRN 06/08/19 11/28/22 08/04/18 aerosol inhaler (ProAir HFA) Shortness Of Breath fluticasone propionate 50 1 spray intranasal UD PRN ALLERGY 06/08/19 11/28/22 06/19/19 mcg/actuation nasal SEASON spray,suspension (Flonase Allergy Relief) multivitamin 1 tab PO HS 06/08/19 11/28/22 06/18/19 Bacillus coagulans 2 billion 1 cap PO HS 11/28/22 11/28/22 Unknown cell-calcium 140 mg capsule (Digestive Advantage Probiotic) ascorbic acid (vitamin C) 500 mg 500 mg PO HS 11/28/22 11/28/22 Unknown tablet (Vitamin C) ashwagandha extract 120 mg capsule 120 mg PO HS 11/28/22 11/28/22 Unknown coenzyme Q10 100 mg capsule 100 mg PO HS 11/28/22 11/28/22 Unknown (CoQ-10) hydrochlorothiazide 25 mg tablet 25 mg PO QAM 11/28/22 11/28/22 Unknown losartan 50 mg tablet 50 mg PO QAM 11/28/22 11/28/22 Unknown melatonin 1 mg tablet 1 mg PO HS PRN Sleep 11/28/22 11/28/22 Unknown pantoprazole 40 mg tablet,delayed 40 mg PO HS 11/28/22 11/28/22 Unknown release sucralfate 1 gram tablet 1 g PO ACHS 11/28/22 11/28/22 Unknown Past Medical History Medical History Anemia Borderline/history Asthma Remote hx of subclinical asthma, hx allergy shots (no issues since allergy shots ) History of gastric ulcer x2 (bleeding) History of palpitations 03/2022 s/p unremarkable monitor, no recurrence (pt diagnosed with HTN at that time) HTN (hypertension) Osteoarthritis Seasonal allergies Exercise / Class Metabolic Activity III < 4 Walking/Shop/Light housework (one FS (no CP, + SOB)) Past Family History Family History Brother Cancer Leukemia Brother Cancer Leukemia Mother Rheumatoid arthritis Father IPF (idiopathic pulmonary fibrosis) Grandmother (Paternal) Family history of diabetes mellitus Other No family history of adverse response to anesthesia Past Surgical History Surgical History H/O dilation and curettage History of colonoscopy History of esophagogastroduodenoscopy (EGD) MULTIPLE History of root canal procedure x3 History of wisdom tooth extraction Past Anesthesia History No Hx of Anesthesia Complications and No Family Hx of Anesthesia Complications History of PONV No Hx of PONV and Hx of Motion Sickness Social History Smoking Status: Never smoker Do You Dip or Chew Tobacco: No Hx Alcohol Use: Yes Alcohol type: beer and wine alcohol intake frequency: a few times a week Hx Substance Use: No substance use type: does not use Review of Systems Patient denies chest pain, shortness of breath, fever, chills, cough, wheezing, palpitations. Physical Exam Vital Signs VITALS BP 134/83 P 83 TEMP 98.6 SP02 96%RA RESP 16 PHYSICAL Full cervical extension range of motion. Full TMJ range of motion. TMD 4 finger breaths Mallampati Score 3 Dentition: missing side, + crowns Lungs: clear throughout to auscultation Cardiac: regular rate and rhythm, no murmurs noted Spine: normal Carotid arteries: negative bruit Extremities: no edema Short neck Lab Results Anesthesia Preop Results Results Anesthesia Widget: WBC 7.39 K/ul (4.8-10.8) 12/05/22 Hgb 12.8 g/dl (12.0-16.0) 12/05/22 Hct 39.0 % (37.0-47.0) 12/05/22 Plt 288 K/uL (130-400) 12/05/22 Na 137 mmol/L (136-145) 12/05/22 K 3.9 mmol/L (3.5-5.1) 12/05/22 Cl 102 mmol/L (98-107) 12/05/22 CO2 28 mmol/L (21-32) 12/05/22 BUN 21 mg/dl (6-23) 12/05/22 Creat 0.76 mg/dl (0.6-1.2) 12/05/22 Glucose Level 92 mg/dl (70-99(Fasting)) 12/05/22 PT 10.3 Seconds (9.0-12.0) 12/05/22 PTT 28.5 Seconds (21.0-31.0) 12/05/22 INR 1.0 (0.9-1.1) 12/05/22 Blood Type O Positive 12/05/22 Antibody Screen NEGATIVE 12/05/22 Testing Electrocardiogram Date: 03/29/22 NSR at 68bpm. Minimal voltage criteria for LVH, may be normal variant. Chest X-Ray Date: 12/05/22 FINDINGS: Lung volumes are normal. Lungs are clear. There is no pneumothorax or pleural effusion. Cardiac size is normal. Mediastinal contours are normal. There is no evidence for pulmonary edema. Several old left rib fractures are incidentally noted. IMPRESSION: No acute cardiopulmonary findings. Echocardiogram Date: 04/18/22 EF 65%. No RWMA. No LVH. Grade I DD. Moderate LAD. Proximal ascending aorta is mildly dilated measuring 3.6cm. No significant valvular abnormalities. COVID-19 Risk Screen Screening Information COVID-19 Screen Date: 12/05/22 Exposure 21 Days Family/Household +COVID Last 21 Days: No Exposure 10 Days Any COVID Exposure Last 10 Days: No Symptoms Last 10 Days Experienced COVID Sx Last 10 Days: No + COVID 0-90 Days COVID + in Last 0-90 Days: No
[2022-12-18] MEDS ORDERED: CeleBREX 200 MG CAP PO SCH ×2 (06:00→21:00)
[2022-12-18] MEDS ORDERED: ACETAMINOPHEN 500 MG TAB PO SCH (06:00)
[2022-12-18] MEDS ORDERED: FAMOTIDINE 20 MG TAB PO SCH (06:00)
[2022-12-18] MEDS ORDERED: GABAPENTIN 600 MG DOSE PO SCH (06:00)
[2022-12-18] MEDS ORDERED: LR 500ML BOLUS, THEN 15ML/HR IV SCH (06:00)
[2022-12-18] MEDS ORDERED: dexAMETHasone 4 MG TAB PO SCH (06:00)
[2022-12-18] MEDS ORDERED: oxyCODONE HCL 10 MG TABCR (OxyCONTIN) PO SCH (06:00)
[2022-12-18] MEDS ORDERED: traMADol HCL 50 MG TABLET PO SCH (06:00)
[2022-12-18] MEDS ORDERED: Scopolamine 1 MG TDSY TD SCH (06:00)
[2022-12-18] MEDS ORDERED: TRANEXAMIC ACID 1,000 MG **IV Intra-op IV SCH (06:00)
[2022-12-18] MEDS ORDERED: TRANEXAMIC ACID 1,000 MG **IV Pre-op IV SCH (06:00)
[2022-12-18] MEDS ORDERED: ceFAZolin 2000MG 2,000 MG/15 ML SYR IV SCH (06:00)
[2022-12-18] MEDS ORDERED: METOCLOPRAMIDE HCL 10 MG TABLET PO SCH (06:00)
[2022-12-18] MEDS ORDERED: ROPIVACAINE 0.5% HCL/PF 150 MG, BUPIVACAINE 0.75% MPF 20 ML, EPINEPHrine 0.15 MG, Ketor... INFIL SCH (06:00)
[2022-12-18] MEDS ORDERED: LR 60ML/HR IV SCH (06:00)
[2022-12-18] MEDS ORDERED: BUPIVACAINE 0.5 % 5 MG/1 ML PF 10ML VIAL ONE (06:26)
[2022-12-18] MEDS ORDERED: ROPIVACAINE 0.5% 5 MG/ML 30 ML VIAL ONE (06:26)
[2022-12-18] MEDS ORDERED: PROPOFOL IV EMULSION 10 MG/ML 20 ML VIAL IV ONE ×4 (06:37→09:29)
[2022-12-18] MEDS ORDERED: MIDAZOLAM HCL 1 MG/ML 2ML VIAL ONE ×2 (06:37→09:44)
[2022-12-18] MEDS ORDERED: fentaNYL citrate PF 100 MCG/2 ML VIAL ONE (06:37)
[2022-12-18] MEDS ORDERED: LIDOCAINE 2% MPF LOCAL 5 ML VIAL ONE (06:37)
[2022-12-18] MEDS ORDERED: VANCOMYCIN HCL 1000MG/20ML VIAL ONE (06:42)
[2022-12-18] MEDS ORDERED: ORTHO JOINT ANESTHETIC ONE (06:42)
[2022-12-18] MEDS ORDERED: ATROPINE SULFATE 0.1 MG/ML 10ML SYR IV PRN (06:46)
[2022-12-18] MEDS ORDERED: ePHEDrine sulfate 50 MG/ML AMP IV PRN (06:46)
[2022-12-18] MEDS ORDERED: ONDANSETRON INJ 2 MG/ML 2 ML VIAL IV PRN ×2 (06:46→12:26)
[2022-12-18] MEDS ORDERED: fentaNYL citrate PF 100 MCG/2 ML VIAL IV PRN (06:46)
--- NOTE | 2022-12-18 06:58 | History & Physical Bridge Note ---
Date of Service December 18, 2022 History & Physical Bridge Note I have examined the patient, reviewed the History & Physical and in the interval since the performance of the History & Physical I have noted the following changes of clinical significance: no changes noted
[2022-12-18] MEDS ORDERED: ePHEDrine sulfate 50 MG/ML SYR ONE (07:50)
[2022-12-18] MEDS ORDERED: PHENYLEPHRINE 100MCG/ML 5ML SYR ONE (07:50)
[2022-12-18] MEDS ORDERED: PHENYLEPHRINE HCL 10 MG/ML VIAL ONE (09:28)
[2022-12-18] MEDS ORDERED: KETAMINE 50 MG/5 ML SYRINGE ONE (09:38)
--- NOTE | 2022-12-18 10:31 | Operative Report ---
Post Operative Report Pre & Post Diagnosis Operation Date: 12/18/22 07:00 <No data on this case meets the specified criteria> I identified the patient and participated in the time-out.: Yes Procedure Operation Date: 12/18/22 07:00 <No data on this case meets the specified criteria> Right total knee arthroplasty Surgeon Franki Hernandez MD Staple Cutter Kimmie Olvera no resident or fellow available Estimated Blood Loss 20 Findings Consistent with Post-Op Diagnosis Specimens Resected bone and soft tissue right knee Drains None Anesthesia Type MAC Spinal Regional Complications none Disposition Accompanied Patient To Recovery: No Disposition: Recovery Room Indications Sabiha is 61 years old. She has severe osteoarthritis of her right knee and has not responded to nonsurgical treatments. She wishes to have her knee replaced. Description of Procedure Informed consent obtained. Patient identified. She identified the operative site as the right knee. I marked with my initials. Preoperative surgical timeout performed. Preop dose of IV antibiotics was given. She was taken to the operating room positioned supine on the operating room table. The an esthetic was previously administered. Foot pumps were utilized for DVT prophylaxis. The leg was prescribed prepped and draped in the usual sterile fashion. The exam showed a varus alignment with 1+ MCL laxity at 20 to 30 degrees of knee flexion. She had full extension and gravity assisted flexion was about 115 degrees. A bump was placed under the right hip and a padded post under the right calf. A tourniquet was applied to the right thigh. TXA was given. Limb exsanguinated with the Esmarch. Tourniquet inflated to 275 mmHg. Midline longitudinal incision was made about 20 cm in length followed by medial parapatellar arthrotomy. Soft tissue on the anterior aspect of the distal femur was resected. The synovial reflection in the lateral gutter was released. The retropatellar fat pad was resected. A medial release was performed. Osteophytes mainly on the medial femur and tibia were removed. The patella was then easily everted and the knee was flexed. The patella demonstrated softened cartilage without any bare areas. The femur demonstrated 2 x 4 cm area medial femoral condyle of complete cartilage loss with markedly eburnated bone. The midportion of the medial meniscus was deficient. The cruciate ligaments were intact and the lateral compartment was normal in appearance except for marginal osteophytes. On the medial tibia there was a 1 x 2 cm area of grade 4 benoit drosis and eburnated bone. The cruciate ligaments were resected and the tibia was subluxated. The remnants of the menisci were removed. Remnants of the cruciate ligaments were removed. I then drilled a gliding pilot instructor hole just in front of and between the tibial spines. I attempted to introduce the intramedullary alignment hansa but did not fit. I therefore inserted a ball-tipped guidewire and began reaming reaming at 7 and proceeded up to 9-1/2 mm in diameter. I was then able to introduce the intramedullary hansa. I applied the revision mobile-bearing tray tibial block. 2 degree posterior slope. This was aligned to the tibial tubercle set to resect 10 mm off of the lateral side corresponding to about a 4 mm cut medially. This guide was pinned into place. The extra medullary alignment hansa was utilized to check the alignment and slope. There was slight posterior slope and the hansa intersected the second ray and bisected the ankle joint. The tibial cut was made protecting the patellar tendon. The tibia was sized to a 2 which just fit. I then turned my attention to the femur. She had varus metaphyseal bowing of her distal femur which resulted in the need for more lateral starting position of the intramedullary alignment hansa for the femur. This was placed about a centimeter lateral to the typical above the PCL position. I it was aligned to the center of the femoral shaft as I palpated it. A gliding pilot instructor hole was drilled followed by insertion of the guide hansa. The distal femoral cutting guide was applied and this was set to a 5 degree right knee valgus angle based upon preoperative templating and a 12 mm thick cut. The guide was pinned in place and the cut was made. The extension gap was a symmetric 10. Medial osteophytes removed. The transepicondylar axis was marked out. The distal femoral sizing block was applied. The femur was sized to a 2.5. This necessitated the use of a size 2 on the tibia. The 2 tibia fit well. The external rotation drill holes were marked on the femur which matched the epicondylar axis. The flexion gap was symmetrically rectangular. The size 2.5 anterior down cutting block was applied and pinned in place followed by making the anterior and posterior cuts followed by the chamfer cuts. The box cutting guide was applied lateralized and the box cut was made. The flexion gap was a symmetric 10. The trial femur was applied. On the anterior surface of the femur the medial flange was not directly in contact with bone as there was some downsloping of the distal femur medially in that location. The cut surface was flush with the anterior cortex without notching. I removed the soft tissue and drilled several holes for cement incorporation into this area which was 1-1/2 cm wide by 2-1/2 cm long. It was about a third of the anterior surface of the distal femur. Otherwise the femur fit well. Attention was turned to the tibia. The size 2 was applied lateralized and rotated to match to the tubercle. It was pinned into place and then the mobile bearing revision tray was prepared using the 2 reamers followed by insertion of the trial. The trial tended to kick a little medial. The keel was punched and when the trial was removed repunched. Trialing was then performed with a size 10 spacer which gave full extension. Good stability and full extension. 1+ LCL laxity in mid position and trace LCL laxity at 90 degrees flexion. Tension was turned to the patella which measured 21 mm in thickness. The synovium and soft tissue around the patella removed. The patellar caliper was set to preserve 14 mm of bone. The cutting guide was applied appropriately aligned and the cut was made with a residual patellar thickness of 13. The paddle was aligned with the patella reduced and the slight flexion. Lug holes were drilled and patellar tracking was fine with no hands technique. The trial components were removed from the knee. The back the knee was injected with the Ortho joint mix and the bony surfaces were meticulously prepared. The femoral canal was plugged. 2 bags of Simplex P cement were mixed and then while in a doughy state the components were cemented into place femur tibia and then patella. They were held in full extension with a trial spacer until the cemented hardened and then the tourniquet was let down after 128 minutes of inflation. Meticulous hemostasis was then performed. The remainder the Ortho joint mix was injected. Soft tissue was kept moist throughout the surgical procedure and the knee was thoroughly irrigated. When inserting the tibia because of the stem of the tray wanting to push a little bit medial I removed the plastic piece at the end of the tray. This gave a little bit more room so that the tibia seated more properly. In doing so some cement migrated into the shaft of the stem which required that it be removed. The tibial tray was properly aligned. The tibial tray was well seated. After the cemented hardened the extraneous cement in the back the knee was removed as encountered and the back of the knee was explored for bleeders. Trialing again was performed with the after mentioned laxity profile and the final 2.5 x 10 mm thick polyethylene insert was applied. The extensor mechanism was closed above the equator the patella with interrupted #2 FiberWire. Below the equator the patella with running and interrupted #1 Vicryl. The skin was closed in layers with 0 and 2-0 Vicryl followed by kateryna on the skin. The leg was cleaned wet and dry sponges and a bulky soft sterile dressing was applied Xeroform 4 x 4's ABD soft wrap full-length Rudy wrap and a knee immobilizer. A incisional wound VAC will be applied postop day #1. Patient will be admitted to the hospital She was awakened from anesthesia without difficulty and taken to the cart room in stable condition. There were no complications. Counts were correct. Blood loss is estimated to be 20 cc. The resected bone and soft tissue were sent for specimen. Patellar thickness after fixation was 21 mm. [place] assisted flexion with extensor mechanism closed was 120 degrees. Components inserted with a J[employer] PFC Sigma rotating platform knee. This was a size 2.5 right posterior stabilized femur a 32 mm 3 peg oval dome patella and a size 2 mobile-bearing keeled revision tibial tray. A size 2.5 x 10 mm thick polyethylene insert. She will be rehabilitated according to the standard total knee protocol. She will be able to weight-bear as tolerated. I attest to the content of the Intraoperative Record and any orders documented therein. Any exceptions are noted below.
--- NOTE | 2022-12-18 10:33 | Operative Report ---
Post Operative Report Pre & Post Diagnosis Operation Date: 12/18/22 07:00 Pre-Op Diagnosis: Bilateral Primary Osteoarthritis Post-Op Diagnosis: Bilateral Primary Osteoarthritis I identified the patient and participated in the time-out.: Yes Procedure Operation Date: 12/18/22 07:00 Actual Procedures p Right Total Knee Arthroplasty(Right) - Franki Hernandez MD Surgeon Franki Hernandez M.D. High Worker Kimmie Olvera PA-C; no fellow or resident available Estimated Blood Loss 20 Findings Consistent with Post-Op Diagnosis Specimens bone and soft tissue Anesthesia Type MAC Spinal Regional Description of Procedure Patient was taken to the operating room, placed under general anesthesia. Time out performed, prepped and draped in routine sterile fashion. I was present during the entire case and assisted with positioning, tissue retraction, sizing of implants, implantation of hardware, closure and dressings. Please see Dr. Hernandez's operative report for further detail. Patient was awakened and taken to the recovery room in stable condition. I attest to the content of the Intraoperative Record and any orders documented therein. Any exceptions are noted below.
--- NOTE | 2022-12-18 10:53 | Anesthesiology Progress Note ---
Date of Service December 18, 2022 Anesthesia Post Procedure Vital Signs Vital Signs: Temp Pulse Pulse Resp BP Pulse Ox O2 Del Method 12/18/22 10:40 97 H 16 127/78 97 Nasal Cannula 12/18/22 10:31 97.9 F 99 H 15 123/75 95 Nasal Cannula 12/18/22 05:47 98.8 F 90 20 157/68 H 95 Room Air O2 Flow Rate 12/18/22 10:40 2 12/18/22 10:31 2 12/18/22 05:47 Transfer of Care Handoff Completed per policy Notes Mental Status: alert / awake / arousable and participated in evaluation Patient Amnestic to Procedure: Yes Nausea / Vomiting: adequately controlled Pain: adequately controlled Airway Patency, RR, SpO2: stable & adequate BP & HR: stable & adequate Hydration State: stable & adequate Neuraxial Anesthesia: was administered and sensory block is resolving Anesthetic Complications: no major complications apparent and Pt Satisfied with anesthetic care
--- NOTE | 2022-12-18 11:20 | XRay Report ---
RIGHT KNEE 2 VIEWS History: Right total knee arthroplasty. Degenerative arthritis. Postop. FINDINGS: The patient is status post a right total knee arthroplasty. The hardware is intact. No frac ture or dislocation. Skin kateryna are in place. IMPRESSION: Right total knee arthroplasty. No evidence for hardware complication. ACT 112: Negative or not required by law. Electronically signed by: Derek Shepherd M.D. 12/18/2022 11:18 AM
[2022-12-18] MEDS ORDERED: MAGNESIUM HYDROXIDE SUSP 30 ML UDC PO PRN (12:26)
[2022-12-18] MEDS ORDERED: oxyCODONE HCL IR 5 MG TAB (IMMEDIATE RELEASE) PO PRN (12:26)
[2022-12-18] MEDS ORDERED: METOCLOPRAMIDE HCL INJ 5 MG/ML 2 ML VIAL IV PRN (12:26)
[2022-12-18] MEDS ORDERED: HYDROmorphone INJ 0.5 MG/0.5 ML SYR IV PRN (12:26)
[2022-12-18] MEDS ORDERED: FLUTICASONE PROPIONATE NA SPR 16 GM BTL NAE PRN (12:26)
[2022-12-18] MEDS ORDERED: hydrALAZINE HCL 20 MG/ML VIAL IV PRN (12:26)
[2022-12-18] MEDS ORDERED: NALOXONE HCL 0.4 MG/1 ML VIAL/CARP IV PRN (12:26)
[2022-12-18] MEDS ORDERED: SODIUM CHLORIDE 0.9% 1000ML 1,000 ML IV SCH (12:26)
[2022-12-18] MEDS ORDERED: bisacodyL 10 MG SUPP PR PRN (12:26)
[2022-12-18] MEDS ORDERED: ALBUTEROL HFA 8 GM INHALER INH PRN (12:26)
[2022-12-18] MEDS ORDERED: MELATONIN 3 MG TAB PO PRN (12:30)
[2022-12-18] MEDS: KETOROLAC 30 MG/ML VIAL IV SCH ×2 (13:29→20:26)
[2022-12-18] MEDS: ACETAMINOPHEN 500 MG TAB PO SCH ×2 (13:29→20:40)
[2022-12-18] MEDS: SUCRALFATE 1 GM TAB PO SCH ×3 (13:29→20:38)
[2022-12-18] MEDS: Scopolamine CHECK PATCH PLACEMENT SCH (13:30)
--- NOTE | 2022-12-18 14:12 | Orthopedic Progress Note ---
Date of Service December 18, 2022 Assessment & Plan (1) S/P total knee arthroplasty: Plan: POD 0-right total knee arthroplasty by Dr. Hernandez Weight-bear as tolerated right lower extremity with the assistance of a walker. PT and OT as ordered. Pain medication as prescribed. Home medications were continued. Resume a regular diet. Lovenox to start this evening for DVT prophylaxis. 30 mg twice daily x2 to 4 weeks postoperatively. Also on thigh-high ARSENIO stockings and AV impulse boots. Postoperative x-rays reviewed with patient and show a stable prosthesis. Case management for disposition needs. She should have home health arranged. Plans for discharge to home health tomorrow if medically stable. Admission and Anticipated Discharge Date Admission Date: December 18, 2022 Subjective Patient doing well. Sitting up in bed. No complaints of pain in her right knee. at bedside. Awaiting her lunch. States that she actually feels very well. Has not had any postoperative nausea or vomiting. No chest pains or shortness of breath. Physical Exam Musculoskeletal: Exam of her right lower extremity: Dorsalis pedis pulses 1+. Foot is warm. Tolerates ankle range of motion with normal strength. Right lower extremity elevated on [address] over her right knee. Postsurgical dressings clean dry and intact. Results & Data Vital Signs (Past 12 Hours) Vital Signs Temp Pulse Pulse Resp BP Pulse Ox O2 Del Method 12/18/22 12:15 36.7 C 90 18 126/76 94 Room Air 12/18/22 13:23 36.7 C 89 16 123/72 92 Room Air 12/18/22 12:50 36.5 C 71 16 144/80 H 92 Room Air 12/18/22 12:00 87 17 118/69 95 Nasal Cannula 12/18/22 11:30 83 19 120/70 95 Nasal Cannula 12/18/22 11:15 97 H 21 120/78 96 Nasal Cannula 12/18/22 11:00 37.1 C 100 H 17 134/70 96 Nasal Cannula 12/18/22 10:50 98 H 15 118/70 96 Nasal Cannula 12/18/22 10:40 97 H 16 127/78 97 Nasal Cannula 12/18/22 10:31 36.6 C 99 H 15 123/75 95 Nasal Cannula 12/18/22 05:47 37.1 C 90 20 157/68 H 95 Room Air O2 Flow Rate 12/18/22 12:15 12/18/22 13:23 12/18/22 12:50 12/18/22 12:00 2 12/18/22 11:30 2 12/18/22 11:15 2 12/18/22 11:00 2 12/18/22 10:50 2 12/18/22 10:40 2 12/18/22 10:31 2 12/18/22 05:47 Diagnostic Findings RIGHT KNEE 2 VIEWS History: Right total knee arthroplasty. Degenerative arthritis. Postop. FINDINGS: The patient is status post a right total knee arthroplasty. The hardware is intact. No fracture or dislocation. Skin kateryna are in place. IMPRESSION: Right total knee arthroplasty. No evidence for hardware complication.
--- NOTE | 2022-12-18 16:04 | Discharge Summary ---
Date of Service December 18, 2022 Discharge Data Procedures Performed Operation Date: 12/18/22 07:00 Actual Procedures p Right Total Knee Arthroplasty(Right) - Franki Hernandez MD Hospital Course (1) S/P total knee arthroplasty: Patient was admitted to [facility] after undergoing an elective right total knee arthroplasty by Dr. Hernandez on December 18, 2021. Her surgery was performed with spinal anesthesia, IV sedation and peripheral nerve block. She tolerated the procedure well without any intraoperative complications. She was given 2 g of IV Ancef which was continued for 24 hours after her surgery. Her home medications were resumed. She was given a regular diet after her procedure which she tolerated well during her inpatient stay. She was given Toradol, tramadol, oxycodone, IV Dilaudid and oral Tylenol to take as needed for postoperative pain management. She did not develop any postoperative chest pain, shortness of breath, nausea or vomiting. She did not have any urinary retention. Her vitals remained stable. She was allowed out of bed, weight-bear as tolerated on her right lower extremity with the assistance of a walker and knee immobilizer on her knee. On postoperative day 1 postoperative dressings were removed and a Prevena incisional wound VAC was applied to her right knee. Along with her ARSENIO stockings. She was started on Lovenox 30 mg twice daily on December 18 at 10 PM. This will be continued for 2 to 4 weeks after surgery for DVT prophylaxis. She was also given thigh-high ARSENIO stockings and AV impulse boots for DVT prevention. She was seen and evaluated by physical therapy and Occupational Therapy. She was deemed safe for discharge. She was also seen by the case management for disposition and home health arrangements. She was discharged to her home in stable condition on December 19, 2022. All questions were answered and discharge instructions were reviewed.
[2022-12-18] MEDS: traMADol HCL 50 MG TABLET PO PRN (16:09)
[2022-12-18] MEDS: ceFAZolin 2000MG 2,000 MG/15 ML SYR IV SCH (16:09)
[2022-12-18] MEDS: DOCUSATE SODIUM 100 MG CAP PO SCH (20:39)
[2022-12-18] MEDS: PANTOprazole 40 MG TAB PO SCH (20:39)
[2022-12-18] MEDS ORDERED: ASCORBIC ACID 500 MG TAB PO SCH (21:00)
[2022-12-18] MEDS ORDERED: NON-FORMULARY MEDICATION (Bacillus Coagulan-Calcium Carb [Digestive Advantage Probiotic] 2 PO SCH (21:00)
[2022-12-18] MEDS ORDERED: NON-FORMULARY MEDICATION (Coenzyme Q10 [Coq-10] 100 mg Capsule) PO SCH (21:00)
[2022-12-18] MEDS ORDERED: MULTIVITAMIN TAB PO SCH (21:00)
[2022-12-18] MEDS ORDERED: SENNA 8.6 MG TAB PO SCH (21:00)
[2022-12-18] MEDS ORDERED: ENOXAPARIN INJ 30 MG/0.3 ML SYR SQ SCH (22:00)
[2022-12-19] MEDS: ceFAZolin 2000MG 2,000 MG/15 ML SYR IV SCH (01:11)
[2022-12-19] MEDS: Scopolamine CHECK PATCH PLACEMENT SCH ×2 (01:11→08:00)
[2022-12-19] MEDS: KETOROLAC 30 MG/ML VIAL IV SCH ×2 (01:12→07:58)
[2022-12-19] MEDS: ACETAMINOPHEN 500 MG TAB PO SCH (05:48)
[2022-12-19] MEDS: traMADol HCL 50 MG TABLET PO PRN ×2 (06:01→10:58)
[2022-12-19] MEDS: SUCRALFATE 1 GM TAB PO SCH (07:58)
[2022-12-19] MEDS: PANTOprazole 40 MG TAB PO SCH (07:59)
[2022-12-19] MEDS: DOCUSATE SODIUM 100 MG CAP PO SCH (07:59)
[2022-12-19] MEDS ORDERED: dexAMETHasone 4 MG TAB PO SCH (08:00)
[2022-12-19 08:26] LABS: Hematocrit (blood only) 31.9 % (37.0-47.0); Hemoglobin 10.6 g/dl (12.0-16.0); Mean Corpuscular Hemoglobin 29.3 pg (25.0-34.0); Mean Corpuscular Hgb Conc 33.2 g/dL (32.0-36.0); Mean Corpuscular Volume 88.1 fL (80.0-100.0); Mean Platelet Volume 9.3 fL (9.4-12.4); Platelet Count 219 K/uL (130-400); RDW Coefficient of Variation 12.9 % (11.5-14.5); RDW Standard Deviation 41.4 fL (36.4-46.3); Red Blood Count 3.62 M/uL (4.20-5.40)
[2022-12-19] MEDS ORDERED: LOSARTAN POTASSIUM 50 MG TAB PO SCH (09:00)
[2022-12-19] MEDS ORDERED: hydroCHLOROthiazide 25 MG TAB PO SCH (09:00)
--- NOTE | 2022-12-19 09:16 | Orthopedic Progress Note ---
Date of Service December 19, 2022 Assessment & Plan (1) S/P total knee arthroplasty: Plan: POD 1 - right TKA by Dr. Hernandez WBAT with walker; continue knee immobilizer for another day, then discontinue. PT/OT to start today Resume home medication. Continue regular diet. Lovenox 30 mg BID x 2-4 weeks after surgery; Teds and AV impulse boots for DVT prophylaxis. Ice PRN/Elevation PRN swelling Pain medication as prescribed Plan for discharge home today with home health services if safe in PT/OT. Will await for evals. Discharge instructions reviewed with patient. All questions answered. Will discuss findings with Dr. Hernandez. Patient understands and agrees with the plan. Admission and Anticipated Discharge Date Admission Date: December 18, 2022 Subjective Doing well, tolerating regular diet. No complaints of nausea, vomiting. No chest pain or shortness of breath. Pain is well controlled on Tramadol. Has been out of bed with nursing. PT/OT not evaluated yet. Physical Exam Musculoskeletal: Right knee incision clean, dry and intact. Mild blood drainage on dressings, but no active bleeding. Incision cleansed with sterile saline wipe. Prevena applied. No underlying seroma or hematoma, no fluid in pre-patellar bursa. Small effusion right knee joint. Calf supple, nontender. Strength right lower extremity/ankle 5/5. Distal sensation normal. Distal pulses 1+, mild distal edema right lower extremity. no pitting. Tolerates log rolling of right hip. Able to lift leg approximately 1 inch off the bed. Flexes to 40 degrees comfortably. Results & Data Vital Signs (Past 12 Hours) Vital Signs Temp Pulse Resp BP BP Pulse Ox O2 Del Method 12/19/22 07:50 36.6 C 61 16 134/80 94 Room Air 12/19/22 01:59 37 C 72 18 119/75 96 Room Air 12/18/22 22:18 37 C 80 16 128/76 96 Room Air Laboratory Results 12/19/22 12/19/22 12/19/22 Range/Units 07:20 07:20 07:20 WBC 11.40 H (4.8-10.8) K/ul RBC 3.62 L (4.20-5.40) M/uL Hgb 10.6 L (12.0-16.0) g/dl Hct 31.9 L (37.0-47.0) % MCV 88.1 (80.0-100.0) fL MCH 29.3 (25.0-34.0) pg MCHC 33.2 (32.0-36.0) g/dL RDW Std Deviation 41.4 (36.4-46.3) fL RDW Coeff of Yang 12.9 (11.5-14.5) % Plt Count 219 (130-400) K/uL MPV 9.3 L (9.4-12.4) fL Sodium Pending Potassium Pending Chloride Pending Carbon Dioxide Pending Anion Gap Pending BUN Pending Creatinine Pending Est Cr Clr Drug Dosing Pending Est GFR ( Amer) Pending Est GFR (Non-Af Amer) Pending BUN/Creatinine Ratio Pending Glucose Pending Calcium Pending Hepatitis C Ab (EIA) Pending Hep C Ab Signal/Cutoff Pending
[2022-12-19 09:19] LABS: BUN Creatinine Ratio 20.2 (10-20); Calcium 8.7 mg/dl (8.6-10.3); Creatinine Clr Calc Pharmacy 74.4 ml/min; Est GFR (African American) 87.6 ml/min; Est GFR (Non-African American) 75.5 ml/min; Potassium 3.5 mmol/L (3.5-5.1)
== END 2022-12-19 11:46 | disposition home health service (06) ==
LOC: ASU 05:10 → 3W 05:10

== ENCOUNTER 2023-08-20 08:30 | Observation (INO) ==
--- NOTE | 2023-08-08 14:05 | Anesthesiology Consultation ---
Date of Service August 08, 2023 Assessment & Plan (1) Encounter for pre-operative examination: Chart Review Chart Review: Acceptable Risk for Surgery and Patient NOT seen in Pre Admission Testing - Patient is NOT an OPJ candidate (was not OPJ with previous TKA in 11/2022) -Infectious Disease screening: Per PAT nursing assessment on 08/08/23. No known infectious disease contacts in past 10 days or current infectious disease symptoms. No recent travel outside the country. Patient seen by PCP 08/07/2023 = Patient seen for preop evaluation. BP under good control. Recently started on statin for HLD. Recent CMP unremarkable. CBC and PT/INR normal. Does snore but does not want sleep study. Hopes to lose weight after knee replacement when she can be more active. EKG from 07/26/2023 NSR. CXR from November 2022 is unremarkable. Patient is being placed on Eliquis for VTE prophylaxis postop. Estimated risk of adverse outcome with noncardiac surgeryvery low risk. Estimated rate of WI, PE, ventricular fibrillation, cardiac arrest, or complete heart block0.4%. Right TKA 12/18/22= Done under SAB at L3-4 with 1 attempt History Surgery Operation Date: 08/20/23 07:00 Proposed Procedures p Left Total Knee Arthroplasty - Franki Hernandez MD Height/Weight Height: 4 ft 11 in Weight: 90.718 kg Allergies Allergy/AdvReac Type Severity Reaction Status Date / Time No Known Allergies Allergy Verified 08/08/23 13:16 Medications Home Medications Medication Instructions Recorded Confirmed Last Taken albuterol sulfate 90 mcg/actuation 2 puff inhalation Q6H PRN 06/08/19 08/08/23 08/04/18 aerosol inhaler (ProAir HFA) Shortness Of Breath fluticasone propionate 50 1 spray intranasal UD PRN ALLERGY 06/08/19 08/08/23 06/19/19 mcg/actuation nasal SEASON spray,suspension (Flonase Allergy Relief) multivitamin 1 tab PO HS 06/08/19 08/08/23 11/28/22 Bacillus coagulans 2 billion 2 cap PO HS 11/28/22 08/08/23 11/28/22 cell-calcium 140 mg capsule (Digestive Advantage Probiotic) ascorbic acid (vitamin C) 500 mg 500 mg PO HS 11/28/22 08/08/23 11/28/22 tablet (Vitamin C) coenzyme Q10 100 mg capsule 100 mg PO HS 11/28/22 08/08/23 11/28/22 (CoQ-10) hydrochlorothiazide 25 mg tablet 25 mg PO HS 11/28/22 08/08/23 12/17/22 06:30 losartan 50 mg tablet 50 mg PO HS 11/28/22 08/08/23 12/17/22 06:30 melatonin 1 mg tablet 1 mg PO HS PRN Sleep 11/28/22 08/08/23 12/17/22 21:00 pantoprazole 40 mg tablet,delayed 40 mg PO QAM 11/28/22 08/08/23 12/18/22 04:00 release sucralfate 1 gram tablet 1 g PO QAM 11/28/22 08/08/23 12/17/22 21:00 oxycodone 5 mg tablet 5 - 10 mg (1 - 2 x 5 mg) PO Q4H 12/19/22 08/08/23 Unknown PRN pain #18 tabs acetaminophen 500 mg tablet 1,000 mg PO Q8H PRN Pain 08/08/23 08/08/23 Unknown (Tylenol Extra Strength) fluticasone propionate 110 2 puff inhalation BID PRN 08/08/23 08/08/23 Unknown mcg/actuation HFA aerosol inhaler Shortness Of Breath rosuvastatin 10 mg tablet 10 mg PO HS 08/08/23 08/08/23 Unknown Past Medical History Medical History History of COVID-19 07/04/23, home test, not hosp; mild symptoms>all resolved w/exception of some loss of smell Hyperlipidemia History of palpitations 03/2022 s/p unremarkable monitor, no recurrence (pt diagnosed with HTN at that time) Seasonal allergies HTN (hypertension) History of gastric ulcer x2 (bleeding)>currently on protonix to prevent future ulcers Asthma Remote hx of subclinical asthma, hx allergy shots (no issues since allergy shots ) Anemia Borderline due to a bleeding ulcer at the time/history Past Family History Family History Brother Cancer Leukemia Brother Cancer Leukemia Mother Rheumatoid arthritis Father IPF (idiopathic pulmonary fibrosis) Grandmother (Paternal) Family history of diabetes mellitus Other No family history of adverse response to anesthesia Past Surgical History Surgical History History of total right knee replacement History of colonoscopy History of esophagogastroduodenoscopy (EGD) MULTIPLE History of root canal procedure x3 History of wisdom tooth extraction H/O dilation and curettage Social History Smoking Status: Never smoker Do You Dip or Chew Tobacco: No Hx Alcohol Use: Yes Alcohol type: beer, wine and hard liquor alcohol intake frequency: other Alcohol Intake Frequency Comment: 3 glasses per week Hx Substance Use: No substance use type: does not use Lab Results Anesthesia Preop Results Results Anesthesia Widget: WBC 8.42 K/ul (4.8-10.8) 07/26/23 Hgb 12.8 g/dl (12.0-16.0) 07/26/23 Hct 39.7 % (37.0-47.0) 07/26/23 Plt 308 K/uL (130-400) 07/26/23 Na 137 mmol/L (136-145) 07/01/23 K 3.6 mmol/L (3.5-5.1) 07/01/23 Cl 102 mmol/L (98-107) 07/01/23 CO2 30 mmol/L (21-32) 07/01/23 BUN 22 mg/dl (6-23) 07/01/23 Creat 0.78 mg/dl (0.6-1.2) 07/01/23 Glucose Level 106 mg/dl (70-99(Fasting)) H 07/01/23 PT 10.3 Seconds (9.0-12.0) 07/26/23 PTT 30.8 Seconds (21.0-31.0) 07/26/23 INR 0.9 (0.9-1.1) 07/26/23 Blood Type O Positive 07/26/23 Antibody Screen NEGATIVE 07/26/23 Testing Electrocardiogram Date: 07/26/23 NSR At 75bpm Normal EKG per confirming provider Chest X-Ray Date: 12/05/22 FINDINGS: Lung volumes are normal. Lungs are clear. There is no pneumothorax or pleural effusion. Cardiac size is normal. Mediastinal contours are normal. There is no evidence for pulmonary edema. Several old left rib fractures are incidentally noted. IMPRESSION: No acute cardiopulmonary findings. Echocardiogram Date: 04/18/22 EF 65%. No RWMA. No LVH. Grade I DD. Moderate LAD. Proximal ascending aorta is mildly dilated measuring 3.6cm. No significant valvular abnormalities.
[~2023-08-20 08:30] MED LIST changes: +ACETAMINOPHEN 500 MG TAB PO SCH; -ADVIN25/60 INH; -ASCA500 PO; +BUPIVACAINE 0.5 % 5 MG/1 ML PF 10ML VIAL ONE; +CeleBREX 200 MG CAP PO SCH; +FAMOTIDINE 20 MG TAB PO SCH; +GABAPENTIN 600 MG DOSE PO SCH; +LR 500ML BOLUS, THEN 15ML/HR IV SCH; +LR 60ML/HR IV SCH; +METOCLOPRAMIDE HCL 10 MG TABLET PO SCH; -MISCCAP80 PO; -MULT-506 PO; -PANT40TA PO; +ROPIVACAINE 0.5% 5 MG/ML 30 ML VIAL ONE; +ROPIVACAINE 0.5% HCL/PF 150 MG, BUPIVACAINE 0.75% MPF 20 ML, EPINEPHrine 0.15 MG, Ketor... INFIL SCH; +TRANEXAMIC ACID 1,000 MG **IV Pre-op IV SCH; -TURM1CAP4 PO; +ceFAZolin 2000MG 2,000 MG/15 ML SYR IV SCH; +dexAMETHasone 4 MG TAB PO SCH; +oxyCODONE HCL 10 MG TABCR (OxyCONTIN) PO SCH; +traMADol HCL 50 MG TABLET PO SCH
[2023-08-20] MEDS ORDERED: ATROPINE SULFATE 0.1 MG/ML 10ML SYR IV PRN (09:11)
[2023-08-20] MEDS ORDERED: fentaNYL citrate PF 100 MCG/2 ML VIAL IV PRN (09:11)
[2023-08-20] MEDS ORDERED: ePHEDrine sulfate 50 MG/ML AMP IV PRN (09:11)
[2023-08-20] MEDS ORDERED: ONDANSETRON INJ 2 MG/ML 2 ML VIAL IV PRN ×2 (09:11→16:28)
--- OUTSIDE RECORDS SUMMARY | 2023-08-20 09:39 | External Medical Summary | Continuity of Care Document ---
Author Name Unknown Organization [address] [employer] [place] [id number] Address [address] [place] [id number] Care Team Providers Care Food And Beverage Manager Name Role Phone Zoey Link Primary Care Physician [phone] Encounter [facility] [id number] Date(s): 07/26/23 - 07/26/23 [facility] [place] [address] [facility] [address] [facility] [address] [place] [id number] Encounter Diagnosis Arthritis of knee, left(Discharge Diagnosis) - 07/26/23 Discharge Disposition: Home or Self Care Attending Physician: MD David, Franki Benton Allergies, Adverse Reactions, Alerts No Known Medication Allergies Immunizations Given and Recorded Vaccine Date Status Refusal Reason tetanus/diphtheria/pertuss, acel (Tdap) 07/26/19 R ecorded influenza virus vaccine, inactivated 06/23/17 Vito rded Medications Albuterol (Eqv-ProAir HFA) 90 mcg/inh inhalation aerosol Start: 04/08/23 8:08:00 EDT Start Date: 04/08/23 Status: Ordered Amoxil 500 mg oral tablet Start: 03/12/23 10:50:00 EDT, See Instructions, Disp# 4 tab, Refills: 2, 4 TABLETS 1 HOUR BEFORE DENTAL PROCEDURE, Pharmacy: [facility] #[id number] Start Date: 03/12/23 Status: Ordered clotrimazole 1% topical cream Start: 04/08/23 8:27:00 EDT, 1 appl, topical, bid, Disp# 24 g, Refills: 2, Pharmacy: [facility] #[id number] Start Date: 04/08/23 Stop Date: 04/29/23 Status: Ordered [facility] Start: 12/31/18 12:46:00 EDT Start Date: 12/31/18 Status: Ordered Flonase 50 mcg/inh nasal spray Start: 04/08/23 8:07:00 EDT, 1 spray, each nostril, Daily Start Date: 04/08/23 Status: Ordered fluticasone CFC free 110 mcg/inh MDI Start: 07/04/23 14:58:00 EDT Start Date: 07/04/23 Status: Ordered hydroCHLOROthiazide 25 mg oral tablet Start: 05/02/23 8:42:00 EDT, See Instructions, Disp# 30 tab, Refills: 10, take 1 tablet by mouth once daily, Pharmacy: [facility] #[id number] Start Date: 05/02/23 Status: Ordered losartan 50 mg oral tablet Start: 07/10/23 19:15:00 EDT, 1 tab, PO, Daily, Disp# 30 tab, Refills: 10, Pharmacy: [facility] #[id number] Start Date: 07/10/23 Status: Ordered One-A-Day Women Start: 12/31/18 12:46:00 EDT Start Date: 12/31/18 Status: Ordered pantoprazole 40 mg oral delayed release tablet Start: 12/04/22 8:56:00 EDT, 1 tab, PO, Daily, Disp# 90 tab, Refills: 1, Pharmacy: [facility] #[id number] Start Date: 12/04/22 Stop Date: 06/02/23 Status: Ordered rosuvastatin 10 mg oral tablet Start: 07/18/23 10:39:00 EDT, 1 tab, PO, Daily, Disp# 30 tab, Refills: 11, Pharmacy: [facility] #[id number] Start Date: 07/18/23 Stop Date: 07/12/24 Status: Ordered sucralfate 1 g oral tablet Start: 06/03/23 8:13:00 EDT, See Instructions, Disp# 360 tab, Refills: 0, take 1 tablet by mouth four times a day before meals and at bedtime, Pharmacy: [facility] #[id number] Start Date: 06/03/23 Status: Ordered Vitamin C 1000 mg oral tablet Start: 11/16/22 8:30:00 EST, 1 tab, PO, Daily Start Date: 11/16/22 Status: Ordered Mental Status 07/26/23 Barriers to Learning one year None evide nt Mandatory Health Literacy Documentation Yes Health Literacy Communication Barriers N ever Primary Language Kosovan Problem List Condition Confirmation Course Effective Dates Status Health St atus Informant Arthritis of knee Confirmed Active Arthritis of knee, left Confirmed Active Cough Confirmed Active COVID-19 Confirmed Active Gastric ulcer Confirmed Active S/P total knee replacement Confirmed Active HLD (hyperlipidemia) Confirmed Active Hypertension Confirmed Active Intestinal metaplasia of gastric mucosa Confirmed Active Moderate persistent asthma without status asthmaticus without complication Confirmed Active Left knee DJD Confirmed Active Seasonal allergies Confirmed Active Weight monitoring Confirmed Active Diagnosis Diagnosis Type Effective Dates Health Status Cl inical Service Informant Arthritis of knee, left Discharge Diagnosis 07/26/23 Procedures Procedure Date Related Diagnosis Body Site Status TOTAL KNEE ARTHROPLASTY Right 12/18/22 Completed Upper GI endoscopy 1, 2 04/24/21 C ompleted Laboratory findings data interpretation 3 12/05/20 Completed Mammogram 4 06/23/20 Completed Esophagogastroduodenoscopy 5 11/06/19 Completed Esophagogastroduodenoscopy 6, 7 08/07/19 Completed Laboratory findings data interpretation 8 06/26/19 Completed Upper GI endoscopy 9, 10, 11 06/19/19 Completed Colonoscopy 12 04/30/19 Completed Upper GI endoscopy 13 04/28/[address] (Thorax) 14 01/23/18 Comp leted Colonoscopy 15, 16 12/13/17 Comple cathy Upper GI endoscopy 17, 18 12/13/17 Completed Upper GI endoscopy 19, 20, 21 09/13/17 Completed D & C 22 Completed 1IMPRESSION: 1. z-line regular, 39 cm from the incisors 2. 2 cm hiatal hernia 3. gastric erosion with no stigmata of recent bleeding. biopsied. 4. polypoid lesion in gastric antrum. cold biopsied with forceps. estimated blood loss minimal. estimated blood loss minimal 5. normal examined duodenum 6. the examination was otherwise normal 2Pathology report showed no significant abnormalities and H. pylori was negative. Repeat in 1 year 3[facility] B12 840 nl, Mg 2.2 nl 4mammogram screening ana rosa bilateral impression bilateral NO mammographic evidence of malignancy 5EGD scan in antrum from previous ulcera, antral edema bx, erythema of antrum, gastric mapping done,2 cm HH. 6repeatt Upper Endoscopy in 3 months for gastric mapping 7EGD scarring in antrum from previous ulceration, erosions noted with erosion by scar biopsied, normal antrum bx also. 8Gastrin 123 (nl <100) 9Z line regular, 35cm from the incisior Normal esophagus Non bleeding gastic ulcers with no stigmata of bleeding, BX Normal examined duodenum 10Pathology results: Stomach, "gastric ulcers", biopsy: 1) An ulcer with fibrinopurulent exudate is seen. 2) The non-ulcerated fragments of gastric mucosa reveal moderate chronic active gastritis. 3) Atrophy and intestinal metaplasia are not seen 4) H-pyloir organisms, are seen on an immunohistochemic al stain. 5) No tumor seen. 6) Please see comment. 11F/U with Dr Warner as scheduled. 12D/C patient to home cont present meds return to PCP No specimens collected. The examined portion of the ileum was normal. Aptha in the sigmoid colon. Patent end to side ileo-colonic anastomosis, characterized by health appearing mucosa. 13Z-line regular, 37 cm from the incisors. 3 cm hiatal hernia. Oozing gastric ulcer with oozing hemorrhage. Treated with argon plasma coagulation. Normal examined duodenum. No specimens collected. On D/C would keep pt on protonix 40mg po BID, avoid NSAIDS and do repeat EGD in 6-8 weeks. 14Impression: No acute intrathoracic abnormality identified. no lobar airspace consolidation to suggest pneumonia. No pathologic adenopathy. 3 mm solid nodule adjacent to the left major fissure suggests physiologic perifissural lymph node. 15Repeat in 10 years. 16Pathology results: A) Colon, transverse, polypectomy 1) Focal lymphoid hyperplasia, moderate edema of the lamina propria and focal hyperplastic change of mucosal surface are all seen. 2) A well-defined epithelial neoplasm is not seen. 3) Levels x3 are examined on this part. 4) Adenomatous epithelium and carcinoma are both not seen. B) Rectum, polypectomy: a focally inflamed hyperplastic polyp is seen 17Normal esophagus. Small hiatal hernia. Scar in the gastric antrum and in the prepyloric region of the stomach, biopsied. Normal examined duodenum, biopsied. 18Pathology results: A) Duodenum, biopsy: 1) Multiple benign strips of small bowel mucosa with no pathologic Dx are seen. 2) Villous architecture is maintained. 3) Giardia lamblia organisms are not seen. 4) The clinical Hx of gastric ulcer and screening is noted. B) Stomach, antrum, r/o H. pylori 1) Mild, focal antritis is seen. 2) Atrophy and intestinal metaplasia are not seen. 3) H. pylori organisms are not seen on immunohistochemical stain. 4) No tumor seen. 19final diagnosis: Stomach,antral body, biopsies: 1. Chronic gastritis, mild. 2. No acute activity noted. 3. Immunohistochemical stain for H. Pylori negative. 4. No intestinal metaplasia seen. 5. Negative for dysplasia and malignancy. 20Impression: Normal esophagus Small hiatus hernia Normal gastroesophageal junction, cardia, gastric fundus and gastric body. Non-bleeding gastric ulcers with a visible vessel. Injected. Treated with bipolar cautery. Gastritis. biopsied. Normal examined duodenum. 21Repeat in 3 months. [id number] Vital Signs Most recent to oldest [Reference Range]: 1 Height 152.2 cm (07/26/23 8:03 AM) Patient Weight 108 kg (07/26/23 8:03 AM) Body Mass Index 46.62 kg/m2 (07/26/23 8:03 AM) Heart Rate 92 bpm (07/26/23 8:03 AM) Blood Pressure 132/86mmHg (07/26/23 8:39 AM) Cuff Pulse Pressure 46 mmHg (07/26/23 8:39 AM) Social History Social History Type Response Smoking Status Never smoked cigaret stephie Sex Female Cardiology * Contributor_system, [id number]: VERIFY, PERFORM Event Display: EKG Authored Date: Please click on link to see image. Pre-OP H & P * MARCELL Olvera, Kimmie R: PERFORM Event Display: Pre-OP H & P Authored Date: Name:AMY ROBERT Patient Number:[id number] :1960 Date of Service:07/26/2023 Chief Complaint Pre op Left TKA History of Present Illness December is here today for preoperative history and physical. She is scheduled to have a left total knee arthroplasty by Dr. Hernandez 2022 at [facility]. She hasbeen having ongoing left knee pain for the last 5 years or more. She has had many types of different treatments. She has had [id number] anti-inflammatory such as Advil and/or Aleve. She has taken [id number] Tylenol. She has had previous cortisone injections. She had previous viscosupplementation in both of her knees. She had a right knee replaced by Dr. Hernandez in November 2022 and has been doing very well with that. She is very pleased with her results and wishes to schedule a left total knee arthroplasty.She states that she has pain on a daily basis. Her pain is worse with weightbearing. She has pain at rest and at night that does wake her up. It is hard for her to find a comfortable position while sleeping. She denies any numbness or tingling in her Leftleg. A few years ago she did lose about 40 pounds and her knee pain did improve but since then and her lack of ability to be able to exercise she has regained some weight. She states that she is frustrated with how her knee feels. She feels that it is time to proceed with a total knee arthroplasty. She does not see any other options that would be beneficial for her. He has used a cane to assist with ambulation in the past.She does ambulate with a limp. She has had no new injury to herleft knee. Most of the pain is on the inside aspect of her left knee although it is diffusely tender. She occasionally gets pain in the back of her knee. She denies any radiation of pain into her thigh or lower leg. Review of Systems She states that she had COVID about a month ago. She does have a residual cough, nonproductive from that. She states that it is improving. She denies any fevers, chills or flulike symptoms.She denies any lightheadedness, dizziness, syncopal episodes, headaches, migraines or seizures. Deniesany bleeding or clotting disorders or history of DVT or pulmonary embolism. Denies any recent hospitalizations. Denies any history of metal sensitivity, latex allergy or MRSA. Denies any shortness ofbreath or chest pain. Denies abdominal pain, heartburn, indigestion, nausea, vomiting, diarrhea or constipation. Denies any urinary tract infections. Denies any hearing or vision changes. Denies any d ental problems. Physical Exam Vitals & Measurements HR:92(Monitored) BP:132/86 SpO2:98% WT:108kg WT:108.000kg(Dosing) BMI:46.62 kg/m2 Vitals:Last Updated 07/26/23 08:39 Date Temp BP Location Pulse RR SpO2 Pain 07/26/23 132/86 07/26/23 92 98 07/26/23 2 Height and Weight:Last Updated 07/26/23 08:03 Date BMI Wt(kg) Wt(lb) Method Ht(cm) (ft-in) Method 07/26/23 46.62 108 238 Standing Scale 152.2 5-0 07/18/23 111.4 245 Standing Scale 06/05/23 48.12 111.9 246 Standing Scale 152.5 5-0 Patient stated Heights and Weights are the last 3 documented. General:Well-dressed, well-nourished. Normal mood and affect. Alert and oriented x3. HEENT:Head: Atraumatic, normocephalic. Eyes: Extraocular movements intact, pupils equal round and reactive to light, sclera normal. Ears: Ears grossly normal, TMs are clear normal light reflex.Nose: Nares are patent bilaterally. Throat: Oropharynx clear mucous membranes moist good dentition uvula midline. Neck:Supple, no lymphadenopathy, nontender palpation, full range of motion. Cardiac:Regular rate and rhythm, normal S1, S2. No murmurs, rubs or gallops appreciated. Lungs:Clear to auscultation bilaterally. No adventitious sounds. No accessory muscle use. Abdomen:Soft, nontender, nondistended, normal bowel sounds heard in all 4 quadrants. Extremities:Focusing on the patient'sleftlower extremity: GaitNormal NeutralAlignment 1+DP and1+PT pulses Capillary refill less than 2 seconds Sensationintact to light touch Motor strength5/5: Knee flexion and extension/ Ankle plantarflexion and dorsiflexion/ ankle inversion and eversion/ Big toe extension Knee (left)ROM: 0/ 2/ 115 Knee (right) ROM:0/ 120 + Medial > lateral tenderness Hip ROM:Painless Active straight leg raiseintact Passive straight leg raisenegative AbsentEffusion Diagnostic Results MRI of the left knee obtained on 01/17/2023 show chondromalacia of the patella, large osteophytes ofthe medial and posterior knee, and thinning of cartilage. The medialmeniscus isdegenerated, torn, abnormal, and degenerated. The ACL is degeneratedbut the PCL is intact. Xrays: 4 views of the left knee were obtained and show no evidence of acute bony abnormality such as fracture or dislocation. She does have medial joint space narrowing with osteophyte formation. Well-functioning right total knee arthroplasty. Assessment/Plan 1.Arthritis of knee, left Patient is scheduled for a left total knee arthroplasty with Dr. Hernandez on August 20, 2023. Risk and complications of the procedure were explained to the patient and include but are not limited to infection, pain, bleeding, scarring, nerve or blood vessel damage, wound problems, weakness, stiffness, incomplete relief of symptoms, hardware failure, hardware loosening, wear, fracture, tenderligament injury, blood clots, embolisms, heart attack, stroke and . All questions were answered and informed consent was obtained by Dr. Hernandez today. She will have preadmission testing later this morning in which she will obtain a preoperative CBC, PT, PTT and type and screen. She rec ently had a BMP by her family physician. She also had an leg length x-ray and chest x-ray prior to her last surgery in November. Her last EKG was performed in 2021 so we will repeat that today. She will need preoperative medical clearance from her family physician. She has an appointment scheduled next week. She was instructed on usage of the CHG wipes preoperatively. She will stay overnight in the hospital and plan to return home with home health on postoperative day 1. We will use Eliquis 2.5 mg p.o. twice daily for 6 weeks after her surgery. Postoperative course was discussed. She will attend outpatient physical therapy here in our office 2 weeks after her procedure. Shedoes have a walker and a cane to use after surgery as needed. All questions were answered. She knows to call with any further problems, questions or concerns. This chart was completed utilizing [employer] voice recognition software. Grammatical errors, random word insertions, pronoun errors, and in complete sentences are an occasional consequence of the system. Any questions or concerns about the content, text, or information contained within the body of this dictation should be addressed directly to the provider for clarification. Problem List/Past Medical History Ongoing Arthritis of knee Arthritis of knee, left Cough COVID-19 Gastric ulcer HLD (hyperlipidemia) Hypertension Intestinal metaplasia of gastric mucosa Left knee DJD Moderate persistent asthma without status asthmaticus without complication S/P total knee replacement Seasonal allergies Weight monitoring Historical Cellulitis of knee DJD (degenerative joint disease) of knee DJD (degenerative joint disease) of knee Elevated blood pressure reading Epigastric abdominal pain Erythematous condition Fatigue Fe deficiency anemia Frequent loose stools H/O: upper GI bleed Knee joint effusion Knee pain, right Left knee pain Melena Racing heart beat Tear of meniscus of knee Procedure/Surgical History TOTAL KNEE ARTHROPLASTY Right (12/18/2022)Upper GI endoscopy (04/24/2021)Laboratory findings data interpretation (12/05/2020)Mammogram (06/23/2020)Esophagogastroduodenoscopy (11/06/2019 )Esophagogastroduodenoscopy (08/07/2019)Laboratory findings data interpretation (06/26/2019)Upper GI endoscopy (06/19/2019)Colonoscopy (04/30/2019)Upper GI endoscopy (04/28/2019)Chest CT (Thorax) (01/23/2018)Colonoscopy (12/13/2017)Upper GI endoscopy (12/13/2017)Upper GI endoscopy (09/13/2017) D & C Medications Home albuterol(Albuterol (Eqv-ProAir HFA) 90 mcg/inh inhalation aerosol) amoxicillin(Amoxil 500 mg oral tablet), See Instructions, 2 refills ascorbic acid(Vitamin C 1000 mg oral tablet), 1000 mg= 1 tab, PO, Daily clotrimazole topical(clotrimazole 1% topical cream), 1 appl, topical, bid, 2 refills fluticasone(fluticasone CFC free 110 mcg/inh MDI) fluticasone nasal(Flonase 50 mcg/inh nasal spray), 1 spray, each nostril, Daily hydroCHLOROthiazide(hydroCHLOROthiazide 25 mg oral tablet), See Instructions lactobacillus rhamnosus GG([facility]) losartan(losartan 50 mg oral tablet), 1 tab, PO, Daily multivitamin with minerals(One-A-Day Women) pantoprazole(pantoprazole 40 mg oral delayed release tablet), 40 mg= 1 tab, PO, Daily, 1 refills rosuvastatin(rosuvastatin 10 mg oral tablet), 10 mg= 1 tab, PO, Daily, 11 refills sucralfate(sucralfate 1 g oral tablet), See Instructions Allergies No Known Medication Allergies Social History Smoking Status Never smoked cigarettes Alcohol Use:Past Employment/School Status:Employed Description:[employer] Exercise Times per week:3-4 times/week Exercise type:Walking Home/Environment Lives with:Spouse Substance Abuse - Denies Substance Abuse Tobacco - Denies Tobacco Use Family History Alcoholism: PGF. Alive and well: Sister and Brother. Cancer: PGF. Glaucoma: PGM. Heart attack: Father and PGF. Hypertension: Father. Idiopathic pulmonary fibrosis: Father. Leukemia: Brother, Brother and MGM. Rheumatoid arthritis: Mother. Stroke: PGM. Health Status Family Member(s) Family Member(s) Relationship: Brother, Age: Unknown Relationship: Mother, Age: Unknown Relationship: Brother, Age: Unknown Relationship: Father, Age: Unknown Electronic Signature on File Electronically Reviewed/Signed by: Kimmie Olvera PA-C Author Signature Dt/Tm:07/26/2023 03:53PM Division of Sports Medicine Electronically Reviewed/Signed by: Franki Hernandez MD Cosigner Signature Dt/Tm: 07/26/2023 04:01 PM Division of Sports Medicine [facility] Ortho Outpt Note * Jayne Espinoza: PERFORM, MODIFY MD David, Franki Benton: MODIFY Event Display: Ortho Outpt Note Authored Date: [id number] Name:AMY ROBERT Patient Number:[id number] :1960 Date of Service:07/26/2023 CHIEF COMPLAINT: discuss/ sign consent for left TKAscheduled for08/20 HPI: [id number] Cristino presents today forsigning consent for a left TKA scheduled for 08/20. She says she has slight discomfort with her right knee occasionally while walking, but rates it only as a 1-2/10 and says she is otherwise doing well.With her left knee,she saysit is worse with activity which can also occur at night.She denies any swelling but notes aching. She has recently been diagnosed with high cholesterol.She had a right TKA on 12/18/2022,and is pleased with the results but would like to avoid anticoagulant shots with her upcoming surgery as they left her bruised. Shehad COVID about 3 weeks prior but otherwise has not had any changesin her health. She denies any latex or medicinal allergies, or diabetes. PHYSICAL EXAM: Focusing on the patient'sleftlower extremity: GaitNormal NeutralAlignment 1+DP and1+PT pulses Capillary refill less than 2 seconds Sensationintact to light touch Motor strength5/5: Knee flexion and extension/ Ankle plantarflexion and dorsiflexion/ ankle inversion and eversion/ Big toe extension Knee (left)ROM: 0/ 2/ 115 Knee (right) ROM:0/ 120 + Medial > lateral tendernessleft knee Hip ROM:Painless Active straight leg raiseintact AbsentEffusion IMPRESSION: 62 year oldfemale with left knee arthritis PLAN: I discussed the patient's treatment options of conservative management versus surgical interventionand they will elect to proceed with surgery. Surgical plan to include left TKA. Reviewed risks and benefits of surgery, alternatives, and expected outcomes. All questions were answered. Informed consent was signed. No changes in dental or genitourinary health/infections. After a lengthy discussion with the patient today regarding my above clinical findings, their treatment options of conservative management versus surgical intervention were discussed. ATTESTATION: I, Jayne Espinoza, scribing for and in the presence of, Franki Hernandez, on this date,07/26/2023 07:32:51. Electronic Signature on File Electronically Reviewed/Signed by: Jayne Espinoza Author Signature Dt/Tm:07/26/2023 08:13 AM Electronically Reviewed/Signed by: Franki Hernandez MD Cosigner Signature Dt/Tm: 07/26/2023 03:46 PM Division of Sports Medicine MR Patient Care team information Care Team Personnel Name: KOLBY Link Tara Position: Nurse Pract - Family Med Member Role: Primary Care Provider Address: Address: [address] [place] [address], [place] [address] [place] Care Team Related Persons Name: SANDIE ROBERT Address: home -[address] [place], [place] [id number]
[2023-08-20] MEDS ORDERED: fentaNYL citrate PF 100 MCG/2 ML VIAL ONE (09:48)
[2023-08-20] MEDS ORDERED: MIDAZOLAM HCL 1 MG/ML 2ML VIAL ONE (09:48)
[2023-08-20] MEDS ORDERED: ONDANSETRON INJ 2 MG/ML 2 ML VIAL ONE ×2 (09:58→14:25)
[2023-08-20] MEDS ORDERED: PROPOFOL IV EMULSION 10 MG/ML 20 ML VIAL IV ONE (09:58)
--- NOTE | 2023-08-20 10:38 | History & Physical Bridge Note ---
Date of Service August 20, 2023 History & Physical Bridge Note I have examined the patient, reviewed the History & Physical and in the interval since the performance of the History & Physical I have noted the following changes of clinical significance: no changes noted
[2023-08-20] MEDS ORDERED: ORTHO JOINT ANESTHETIC ONE (10:50)
[2023-08-20] MEDS ORDERED: VANCOMYCIN HCL 1000MG/20ML VIAL ONE (10:51)
[2023-08-20] MEDS ORDERED: DexMEDEtomidine HCL IV 100 MCG/ML VIAL IV ONE (10:52)
[2023-08-20] MEDS ORDERED: PHENYLEPHRINE HCL 10 MG/ML VIAL ONE ×2 (11:59→13:59)
[2023-08-20] MEDS ORDERED: ePHEDrine sulfate 50 MG/5 ML SYR ONE (11:59)
[2023-08-20] MEDS ORDERED: DEXAMETHASONE SOD INJ 4 MG/ML VIAL ONE (14:25)
--- NOTE | 2023-08-20 14:41 | Operative Report ---
Post Operative Report Pre & Post Diagnosis Operation Date: 08/20/23 10:00 Pre-Op Diagnosis: Left Knee Osteoarthritis Post-Op Diagnosis: Left Knee Osteoarthritis I identified the patient and participated in the time-out.: Yes Procedure Operation Date: 08/20/23 10:00 Actual Procedures p Left Total Knee Arthroplasty(Left) - Franki Hernandez MD Surgeon Franki Hernandez MD [employer]iler Kimmie DILLON no resident or fellow available Estimated Blood Loss 20 Findings Consistent with Post-Op Diagnosis Specimens Resected bone and soft tissue Anesthesia Type MAC Spinal Regional Complications none Disposition Accompanied Patient To Recovery: No Disposition: Recovery Room Indications December. BMI of 50. Severe bilateral knee arthritis status post a right knee replacement doing well. She wishes to have her left knee replaced. Nonsurgical treatment has not relieved her knee pain. Description of Procedure Informed consent. Patient identified. She identified the operative site as the left knee. I marked with my initials. Preop surgical timeout performed. Preop dose of IV antibiotics given. She was taken to the OR positioned supine on the OR table. Padded post under the left calf. Bump under the left hip. The leg was prescribed and then prepped and draped in the usual sterile fashion. Prior to prepping and draping a nonsterile tourniquet was applied to her left upper thigh. The exam under anesthesia revealed range of motion 0 to approximately 110 degrees of flexion. Ligaments intact. TXA given. DVT prophylaxis with foot pumps intraoperatively. Early mobility foot pumps and Eliquis postop. Limb exsanguinated with the Esmarch. Tourniquet inflated 300 mmHg. Midline longitudinal incision was made followed by medial parapatellar arthrotomy. The retropatellar fat pad was resected. The synovial layer in the lateral gutter was released. Soft tissue on the anterior aspect of the distal femur was excised. An extensile medial release was performed. Soft tissue around the patella was debrided. The patella measured 20 mm in thickness. There was some central grade 3 chondrosis with the surrounding normal cartilage. The central area is about a centimeter in diameter. I elected to proceed with patellar resurfacing. The cruciate ligaments were sacrificed. The medial meniscus was largely deficient. The lateral compartment look alert relatively normal. The remnants of the menisci were removed. The cruciate ligaments were resected and the knee was subluxated. A mapping pilot hole was drilled into the tibia just in front of the lateral spine based upon preop templating. The intramedullary alignment hansa would not pass so I inserted a intramedullary guide hansa followed by reaming from 7.5 up to 9 mm in half millimeter increments. The guide hansa then passed. The mobile-bearing revision tray 2 degree posterior slope block was applied. It was set to resect 10 mm off the lateral side corresponding to about 4 to 6 mm medially. This was aligned to the tibial tubercle. It was checked with the extra medullary alignment hansa which bisected the ankle joint and intersected the second ray with slight posterior slope. This was pinned into place and then the cut was made protecting the surrounding structures. The size was a 2. Attention turned to the femur. A mapping pilot hole was drilled into the distal femur just slightly more central than PCL origin based upon preoperative templating. Intramedullary alignment hansa inserted. Distal femoral cutting guide was aligned pinned into place and the cut was made. 12 mm thick at a 6 degree left knee valgus angle based upon preop templating. The extension gap was a symmetric 10. The epicondylar axis was marked out. Distal femoral sizing block was applied and sized with 2. The external rotation drill holes were made which matched the epicondylar axis. The flexion gap was rectangular. The guide was pinned into place and the appropriate cuts were made protecting the collateral ligaments. Osteophytes in the back of the knee and underneath the MCL were removed. The flexion gap was symmetric 10. The box cutting guide was applied and lateralized and the box cut was made followed by application of the 2 femur which fit well. Attention was turned back to the tibia where the tray was aligned to the tibial tubercle and centered on the plateau. This was pinned in the place followed by the straight reamer and the tapered reamer for the revision tibial tray extended stem. An add-on stem was not utilized. The keel was punched and trialing was performed. The knee had full extension it was stable at 0 and 90 with 1+ LCL laxity at mid position. The patella was selected at a 32. The guide was set to preserve 14 mm of bone. The cutting jig was applied and appropriately aligned and the cut was made with residual patellar thickness of 13. The paddle was aligned and the lug holes were drilled. Patellar tracking was fine with no hands technique. The canals were plugged. Ortho joint mix injected into the back the knee. The bony surfaces were meticulously prepared with pulsatile lavage and dried. In general the bone was slightly soft. There was no significant eburnated areas remaining. 2 bags of Simplex P cement were mixed and while in a doughy state smears were placed on the posterior condyles and in the femur tibia and patella were cemented into place. The tibial keel was cemented into place. The knee was held in full extension with a clamp on the patella until the cemented hardened and then the tourniquet was let down after approximately 115 minutes of inflation. Meticulous hemostasis was performed with minimal bleeding. Copious irrigation and remainder of the Ortho joint mix was injected while the cement was hardening. The back of the knee was inspected for cement and removed as encountered. The after mentioned stability profile applied and the final polyethylene insert was applied. Composite patellar thickness was 21. Hickory assisted flexion with extensor mechanism closed was approximately 105 to 110 degrees. The arthrotomy was closed with interrupted #2 FiberWire's above the equator the patella and running and interrupted #1 Vicryl below. The skin was closed in layers using #1-0 and 2-0 Vicryl and finally kateryna on the skin. The leg was cleaned with wet and dry sponges and a soft roll dressing was applied Xeroform 4 x 4's ABD soft wrap full-length Rudy wrap and a knee immobilizer. Patient was awakened from anesthesia without difficulty and taken to the recovery in stable condition. I resected bone and soft tissue were sent for specimen. There were no complications. Counts were correct and blood loss is estimated to be 20 cc. At the conclusion of the operation spoke to patient's informed of my findings postop instructions were given. She can be rehabilitated according to the standard total knee protocol.. She may weight- bear as tolerated. Components inserted with a J[employer]J PFC Sigma rotating platform knee a size 32 3 peg oval dome patella. The patella was distal lysed and medialized as much as possible. Patellar tracking was fine with no hands technique. Lift off pull out was negative. The femur was a 2.0 posterior stabilized left. The tibia was a size 2 revision mobile-bearing tray with an extended keel. When cementing the plastic knob at the end of the tibial tray was removed and it was packed with bone wax to prevent cement from and intruding. This is based upon findings performed when doing the other side. The plastic knob appeared to prevent the tray from fully seating. I attest to the content of the Intraoperative Record and any orders documented therein. Any exceptions are noted below.
--- NOTE | 2023-08-20 14:43 | Operative Report ---
Post Operative Report Pre & Post Diagnosis Operation Date: 08/20/23 10:00 Pre-Op Diagnosis: Left Knee Osteoarthritis Post-Op Diagnosis: Left Knee Osteoarthritis I identified the patient and participated in the time-out.: Yes Procedure Operation Date: 08/20/23 10:00 Actual Procedures p Left Total Knee Arthroplasty(Left) - Franki Hernandez MD Surgeon Franki Hernandez M.D. Owner/Photographer Kimmie DILLON no resident or fellow available Estimated Blood Loss 20 Findings Consistent with Post-Op Diagnosis Specimens Bone and soft tissue Anesthesia Type MAC Spinal Regional Description of Procedure Patient was taken to the operating room and placed under spinal anesthesia with peripheral nerve block. She was given 2 g of IV Ancef for surgical prophylaxis. She was given 1 g of TXA preoperatively. Time out was performed. She was prepped and draped in routine sterile fashion. I was present during the entire case and assisted with positioning, tissue retraction, trialing of implants, implantation of hardware, closure and dressings. Please see Dr. Hernandez's operative report for further details regarding today's procedure. Patient was awakened and transferred to the recovery room in stable condition. I attest to the content of the Intraoperative Record and any orders documented therein. Any exceptions are noted below.
--- NOTE | 2023-08-20 15:18 | Anesthesiology Progress Note ---
Date of Service August 20, 2023 Anesthesia Post Procedure Vital Signs Vital Signs: Temp Pulse Pulse Resp BP BP Pulse Ox 08/20/23 15:10 105 H 20 118/65 95 08/20/23 15:00 104 H 14 104/51 L 92 08/20/23 14:50 105 H 25 H 94/58 L 92 08/20/23 14:41 37.0 C 110 H 14 95/55 L 94 08/20/23 09:32 36.8 C 77 20 118/79 96 O2 Del Method O2 Flow Rate 08/20/23 15:10 Nasal Cannula 2 08/20/23 15:00 Room Air 08/20/23 14:50 Room Air 08/20/23 14:41 Oxymask 5 08/20/23 09:32 Room Air Transfer of Care Handoff Completed per policy Notes Mental Status: alert / awake / arousable and participated in evaluation Patient Amnestic to Procedure: Yes Nausea / Vomiting: adequately controlled Pain: adequately controlled Airway Patency, RR, SpO2: stable & adequate BP & HR: stable & adequate Hydration State: stable & adequate Neuraxial Anesthesia: was administered and sensory block is resolving Anesthetic Complications: no major complications apparent and Pt Satisfied with anesthetic care
[2023-08-20] MEDS ORDERED: NALOXONE HCL 0.4 MG/1 ML VIAL/CARP IV PRN (16:28)
[2023-08-20] MEDS ORDERED: diphenhydrAMINE 50 MG/ML VIAL IV PRN (16:28)
[2023-08-20] MEDS ORDERED: HYDROmorphone INJ 0.5 MG/0.5 ML SYR IV PRN (16:28)
[2023-08-20] MEDS ORDERED: METOCLOPRAMIDE HCL INJ 5 MG/ML 2 ML VIAL IV PRN (16:28)
[2023-08-20] MEDS ORDERED: HYDROmorphone INJ 1 MG/ML SYRINGE IV PRN (16:28)
[2023-08-20] MEDS ORDERED: oxyCODONE HCL IR 5 MG TAB (IMMEDIATE RELEASE) PO PRN (16:28)
[2023-08-20] MEDS ORDERED: ALBUTEROL HFA 8 GM INHALER INH PRN (16:28)
[2023-08-20] MEDS ORDERED: MAGNESIUM HYDROXIDE SUSP 30 ML UDC PO PRN (16:28)
[2023-08-20] MEDS ORDERED: FLUTICASONE PROPIONATE NA SPR 16 GM BTL NAE PRN (16:28)
[2023-08-20] MEDS ORDERED: traMADol HCL 50 MG TABLET PO PRN (16:28)
[2023-08-20] MEDS ORDERED: hydrALAZINE HCL 20 MG/ML VIAL IV PRN (16:28)
[2023-08-20] MEDS ORDERED: bisacodyL 10 MG SUPP PR PRN (16:28)
[2023-08-20] MEDS ORDERED: diphenhydrAMINE Capsule 25 MG CAP PO PRN (16:28)
--- NOTE | 2023-08-20 16:47 | XRay Report ---
XR knee LT 1 or 2V routine HISTORY: 62 years-old Female Surgical Post Op left knee arthroplasty COMPARISON: 12/05/2022 TECHNIQUE: 2 views of the left knee FINDINGS: Total joint arthroplasty with patellar resurfacing. Anterior midline skin kateryna and expected postop erative soft tissue swelling and deep tissue air. No acute fracture identified. Punctate metallic den sity focus is noted deep to the superior skin kateryna. IMPRESSION: Satisfactory alignment of the total joint arthroplasty. ACT 112: Negative or not required by law. The above report was generated using voice recognition software. It may contain grammatical, syntax o r spelling errors. Electronically signed by: Armando Garcia M.D. 08/20/2023 4:45 PM
--- NOTE | 2023-08-20 16:56 | Orthopedic Progress Note ---
Date of Service August 20, 2023 Assessment & Plan (1) S/P total knee arthroplasty: Plan: Surgical findings discussed. She is doing well. Start Eliquis in the morning. Standard antibiotics and rehab. Stable postop. Admission and Anticipated Discharge Date Admission Date: August 20, 2023 Subjective No nausea or difficulty breathing. Pain is well controlled. Physical Exam Physical Exam: DP and PT pulses are trace to 1+ palpable. She has 5 out of 5 ankle and toe plantarflexion dorsiflexion and eversion strength. Sensation intact. Foot is warm with capillary refill less than 2 seconds. Dressing is clean dry and intact. Results & Data Vital Signs (Past 12 Hours) Vital Signs Temp Pulse Pulse Resp BP BP Pulse Ox 08/20/23 16:35 36.5 C 96 H 20 111/62 95 08/20/23 16:28 36.4 C L 79 18 107/72 95 08/20/23 15:40 92 H 16 105/83 95 08/20/23 15:30 102 H 15 92/54 L 95 08/20/23 15:20 36.7 C 104 H 14 110/58 L 95 08/20/23 15:10 105 H 20 118/65 95 08/20/23 15:00 104 H 14 104/51 L 92 08/20/23 14:50 105 H 25 H 94/58 L 92 08/20/23 14:41 37.0 C 110 H 14 95/55 L 94 08/20/23 09:32 36.8 C 77 20 118/79 96 O2 Del Method O2 Flow Rate 08/20/23 16:35 Nasal Cannula 2 08/20/23 16:28 Nasal Cannula 2 08/20/23 15:40 Nasal Cannula 2 08/20/23 15:30 Nasal Cannula 2 08/20/23 15:20 Nasal Cannula 2 08/20/23 15:10 Nasal Cannula 2 08/20/23 15:00 Room Air 08/20/23 14:50 Room Air 08/20/23 14:41 Oxymask 5 08/20/23 09:32 Room Air Diagnostic Findings Radiographs of the left knee show implants in place without complication good positioning no fracture.
[2023-08-20] MEDS: SODIUM CHLORIDE 0.9% 1,000 ML IV SCH (17:37)
[2023-08-20] MEDS ORDERED: FLUTICASONE FUROATE 200MCG 14 PUFFS/INHALER INH PRN (18:03)
[2023-08-20] MEDS: KETOROLAC TROMETHAMINE 15 MG/ML VIAL IV SCH (18:14)
[2023-08-20] MEDS ORDERED: LOSARTAN POTASSIUM 50 MG TAB PO SCH (21:00)
[2023-08-20] MEDS ORDERED: ROSUVASTATIN CALCIUM 10 MG TAB PO SCH (21:00)
[2023-08-20] MEDS ORDERED: ASCORBIC ACID 500 MG TAB PO SCH (21:00)
[2023-08-20] MEDS ORDERED: NON-FORMULARY MEDICATION (Coenzyme Q10 [Coq-10] 100 mg Capsule) PO SCH (21:00)
[2023-08-20] MEDS ORDERED: ADVANCED PROBIOTIC 1250 MG CAPSULE PO SCH (21:00)
[2023-08-20] MEDS ORDERED: TRANEXAMIC ACID / 0.7% NACL 1,000 MG/100 ML BAG IV SCH (21:00)
[2023-08-20] MEDS ORDERED: SENNA 8.6 MG TAB PO SCH (21:00)
[2023-08-20] MEDS ORDERED: hydroCHLOROthiazide 25 MG TAB PO SCH (21:00)
[2023-08-20] MEDS: ceFAZolin 2000MG 2,000 MG/15 ML SYR IV SCH (21:45)
[2023-08-20] MEDS: DOCUSATE SODIUM 100 MG CAP PO SCH (21:47)
[2023-08-20] MEDS: ACETAMINOPHEN 500 MG TAB PO SCH (21:47)
[2023-08-20 23:34] VITALS: RESP 18
[2023-08-21] MEDS: KETOROLAC TROMETHAMINE 15 MG/ML VIAL IV SCH ×2 (00:12→05:07)
[2023-08-21] MEDS: SODIUM CHLORIDE 0.9% 1,000 ML IV SCH (03:22)
[2023-08-21 03:39] VITALS: TEMP 98.1
[2023-08-21] MEDS: ceFAZolin 2000MG 2,000 MG/15 ML SYR IV SCH (05:07)
[2023-08-21] MEDS: ACETAMINOPHEN 500 MG TAB PO SCH (05:07)
[2023-08-21 07:12] VITALS: BP 119/78; PULSE 80; O2SAT 94
[2023-08-21 07:20] LABS: Hematocrit (blood only) 32.3 % (37.0-47.0); Hemoglobin 10.4 g/dl (12.0-16.0); Mean Corpuscular Hemoglobin 27.9 pg (25.0-34.0); Mean Corpuscular Hgb Conc 32.2 g/dL (32.0-36.0); Mean Corpuscular Volume 86.6 fL (80.0-100.0); Mean Platelet Volume 9.2 fL (9.4-12.4); Platelet Count 248 K/uL (130-400); RDW Coefficient of Variation 13.4 % (11.5-14.5); RDW Standard Deviation 42.4 fL (36.4-46.3); Red Blood Count 3.73 M/uL (4.20-5.40); White Blood Count 15.85 K/ul (4.8-10.8)
[2023-08-21 07:50] LABS: BUN Creatinine Ratio 23.8 (10-20); Calcium 8.4 mg/dl (8.6-10.3); Est GFR (African American) 92.2 ml/min; Est GFR (Non-African American) 79.6 ml/min; Potassium 4.2 mmol/L (3.5-5.1)
[2023-08-21] MEDS ORDERED: dexAMETHasone 4 MG TAB PO SCH (08:00)
[2023-08-21] MEDS: DOCUSATE SODIUM 100 MG CAP PO SCH (08:07)
[2023-08-21] MEDS ORDERED: SUCRALFATE 1 GM TAB PO SCH (09:00)
[2023-08-21] MEDS ORDERED: MULTIVITAMIN TAB PO SCH (09:00)
[2023-08-21] MEDS ORDERED: PANTOprazole 40 MG TAB PO SCH (09:00)
[2023-08-21] MEDS ORDERED: APIXABAN 2.5 MG TAB PO SCH (09:00)
--- NOTE | 2023-08-21 09:39 | Orthopedic Progress Note ---
Date of Service August 21, 2023 Assessment & Plan (1) S/P total knee arthroplasty: Plan: Doing well. Labs and vitals noted. Follow-up 2 weeks. Home rehab. Home nursing. Eliquis. Pain medicine. Focus on rest elevation pain control. Medication regimen reviewed. If there is any problems with drainage fevers swelling etc. Let us know. She may shower at this time. Use walker at all times. Home nursing will remove the dressing in 7 days. Discharge home Admission and Anticipated Discharge Date Admission Date: August 20, 2023 Subjective Doing well. Up with PT. Some discomfort overnight controlled with medicine. Tolerating regular diet no chest pains or shortness of breath. Physical Exam Physical Exam: 5 out of 5 ankle and toe plantarflexion dorsiflexion inversion eversion strength. Sensation intact. DP and PT pulses are 1+ palpable. Capillary refill less than 2 seconds. Her dressing is removed. There is some bruising around the margins of her incision and a spot or 2 of bloody drainage. There is no major hematoma or intra-articular effusion. The incision is cleaned and a Prevena incisional wound VAC is applied. Results & Data Vital Signs (Past 12 Hours) Vital Signs Temp Pulse Pulse Resp BP Pulse Ox O2 Del Method 08/21/23 07:11 36.7 C 80 18 119/78 94 Room Air 08/21/23 02:34 36.7 C 95 H 18 120/72 96 Nasal Cannula 08/20/23 23:33 36.5 C 90 18 105/68 95 Nasal Cannula O2 Flow Rate 08/21/23 07:11 08/21/23 02:34 2.0 08/20/23 23:33 2.0 Laboratory Results Laboratory Results WBC 15.85 K/ul (4.8-10.8) H 08/21/23 06:22 RBC 3.73 M/uL (4.20-5.40) L 08/21/23 06:22 Hgb 10.4 g/dl (12.0-16.0) L 08/21/23 06:22 Hct 32.3 % (37.0-47.0) L 08/21/23 06:22 MCV 86.6 fL (80.0-100.0) 08/21/23 06:22 MCH 27.9 pg (25.0-34.0) 08/21/23 06:22 MCHC 32.2 g/dL (32.0-36.0) 08/21/23 06:22 RDW Std Deviation 42.4 fL (36.4-46.3) 08/21/23 06:22 RDW Coeff of Yang 13.4 % (11.5-14.5) 08/21/23 06:22 Plt Count 248 K/uL (130-400) 08/21/23 06:22 MPV 9.2 fL (9.4-12.4) L 08/21/23 06:22 Sodium 138 mmol/L (136-145) 08/21/23 06:22 Potassium 4.2 mmol/L (3.5-5.1) 08/21/23 06:22 Chloride 105 mmol/L (98-107) 08/21/23 06:22 Carbon Dioxide 28 mmol/L (21-32) 08/21/23 06:22 Anion Gap 5 (3-11) 08/21/23 06:22 BUN 19 mg/dl (6-23) 08/21/23 06:22 Creatinine 0.80 mg/dl (0.6-1.2) 08/21/23 06:22 Est Cr Clr Drug Dosing 82.0 ml/min 08/21/23 06:22 Est GFR ( Amer) 92.2 ml/min 08/21/23 06:22 Est GFR (Non-Af Amer) 79.6 ml/min 08/21/23 06:22 BUN/Creatinine Ratio 23.8 (10-20) H 08/21/23 06:22 Glucose 125 mg/dl (70-99(Fasting)) H 08/21/23 06:22 Calcium 8.4 mg/dl (8.6-10.3) L 08/21/23 06:22 Impressions Knee X-Ray 08/20/23 14:49 XR knee LT 1 or 2V routine HISTORY: 62 years-old Female Surgical Post Op left knee arthroplasty COMPARISON: 12/05/2022 TECHNIQUE: 2 views of the left knee FINDINGS: Total joint arthroplasty with patellar resurfacing. Anterior midline skin kateryna and expected postoperative soft tissue swelling and deep tissue air. No acute fracture identified. Punctate metallic density focus is noted deep to the superior skin kateryna. IMPRESSION: Satisfactory alignment of the total joint arthroplasty. ACT 112: Negative or not required by law. The above report was generated using voice recognition software. It may contain grammatical, syntax or spelling errors. Electronically signed by: Armando Garcia M.D. 08/20/2023 4:45 PM
--- NOTE | 2023-08-21 10:11 | Discharge Summary ---
Date of Service August 21, 2023 Discharge Data Procedures Performed Operation Date: 08/20/23 10:00 Actual Procedures p Left Total Knee Arthroplasty(Left) - Franki Hernandez MD Hospital Course (1) S/P total knee arthroplasty: Patient was kept in observation at [facility] [address] after undergoing an elective left total knee arthroplasty by Dr. Hernandez on August 12, 2023. Her surgery was performed with spinal anesthesia and a peripheral nerve block. She tolerated the procedure well without any intraoperative complications. She was given 2 g of IV Ancef for surgical prophylaxis which was continued for 24 hours after her procedure. She was also given 1 g of IV TXA prior to her procedure which was then repeated 6 hours after her procedure. In the recovery room she had an x-ray of her left knee which showed a stable left knee prosthesis without any evidence of complication. She was allowed out of bed, weight-bear as tolerated on her left lower extremity with the assistance of a walker and a knee immobilizer for the first 24 hours. Her regular home medications were continued. She was provided with a regular diet which she tolerated well during her inpatient stay. She was given IV Dilaudid, oxycodone, Tylenol, tramadol for postoperative pain control. Her pain was well controlled on oral medication. She was seen and evaluated on postoperative day 1 by rafia wilsk and Occupational Therapy and was deemed safe for discharge to her home. Her knee immobilizer was discontinued on postoperative day 1. A Prevena dressing was applied to her left knee incision on postoperative day 1. She does know to keep this on for 7 days after her procedure and then it will be removed by home health. She was started on Eliquis this morning for DVT prophylaxis which we continued for 2 to 6 weeks after her procedure. She was also provided with ARSENIO stockings and AV impulse boots for DVT prophylaxis during her inpatient stay. Her vital signs remained stable. Postoperative lab work was also within normal limits and as expected postoperatively. She was seen and evaluated by Dr. Hernandez. She was deemed safe for discharge to her home and was discharged to her home in stable condition with her on August 21, 2023. Home health has been arranged for correction and physical therapy to start after her discharge. She understands and agrees. Discharge instructions were reviewed.
[2023-08-21] MEDS ORDERED: CeleBREX 200 MG CAP PO SCH (21:00)
== END 2023-08-21 11:00 | disposition home health service (06) ==
LOC: ASU 08:30 → 3N 08:30
DX: Z79.899 Other long term (current) drug therapy; M17.12 Unilateral primary osteoarthritis, left knee